=== PATIENT | female | born 1995 | race Caucasian/White ===

== ENCOUNTER → 2022-05-02 12:09 | Outpatient (CLI) | payer OTHER, MEDICAID, SELFPAY ==
[2022-05-02 13:09] LABS: Appearance Urine UA CLEAR; Bilirubin Urine UA NEGATIVE (NEGATIVE); Color Urine UA YELLOW; Glucose Urine UA NEGATIVE (Negative); Ketones Urine UA NEGATIVE (NEGATIVE); Leukocyte Esterase Urine UA NEGATIVE (NEGATIVE); Nitrite Urine UA NEGATIVE (Negative); Occult Blood Urine UA NEGATIVE (Negative); Protein Urine UA NEGATIVE (Negative); Urobilinogen Urine UA 0.2 E.U./dL (0.2)
[2022-05-02 13:10] LABS: pH Urine UA 5.5 (4.5-8.0)
[2022-05-02 13:33] LABS: RBC Urine None Seen (0-5/HPF); Squamous Epithelial Cell Urine 5-10 /HPF (0-5/HPF); WBC Urine None Seen (0-5/HPF)
[2022-05-02 13:34] LABS: Bacteria Urine Many (>30); Culture Indicated Urine Cult Not Indicated
== END ==
PROVIDERS: PCP Family Medicine; Referring Provider Obstetrics & Gynecology; Visit Provider Obstetrics & Gynecology
DX: R30.0 Dysuria (principal)
CPT/HCPCS: 81001; 87086

== ENCOUNTER → 2022-06-13 10:41 | Outpatient (CLI) | payer OTHER, MEDICAID, SELFPAY ==
[2022-06-13 11:39] LABS: Specimen Label NATERA KIT
[2022-06-13 11:48] LABS: Add Manual Diff / Slide Review NO; Basophils Absolute Auto 0 /uL (0-100); Basophils Percent Auto 0.3 % (0-2); Eosinophils Absolute Auto 100 /uL (0-450); Eosinophils Percent Auto 0.6 % (2-4); Hemoglobin 12.5 g/dL (12.0-16.0); Lymphocytes Absolute Auto 1600 /uL (1100-4500); Lymphocytes Percent Auto 13.3 % (25-40); Mean Corpuscular HGB Conc 34.6 % (30-36); Mean Corpuscular Hemoglobin 29.9 PG (26-34); Mean Corpuscular Volume 86.3 fL (80-100); Monocytes Absolute Auto 800 /uL (0-900); Neutrophils Absolute Auto 9200 /uL (1500-7000); Neutrophils Percent Auto 78.8 % (50-75); Platelet Count 270 X10^3/uL (150-400); Red Blood Cell Count 4.17 X10^6/uL (4.0-5.2); Red Cell Distribution Width 13.9 % (11.6-14.8); White Blood Cell Count 11.7 X10^3/uL (4.5-11.0)
[2022-06-13 13:09] LABS: Hepatitis B Surface Antigen NEGATIVE s/c (NEGATIVE); Rubella Antibody IgG 47.2 IU/mL (>15)
[2022-06-13 13:25] LABS: HIV 1 & 2 Ab/Ag 4th Gen Combo NEGATIVE (NEGATIVE); Hep C Virus Ab w/Reflex Quant NEGATIVE s/c (NEGATIVE)
[2022-06-13 13:32] LABS: Appearance Urine UA SL CLOUDY; Bilirubin Urine UA NEGATIVE (NEGATIVE); Color Urine UA YELLOW; Glucose Urine UA NEGATIVE (Negative); Ketones Urine UA NEGATIVE (NEGATIVE); Leukocyte Esterase Urine UA TRACE (NEGATIVE); Nitrite Urine UA POSITIVE (Negative); Occult Blood Urine UA TRACE-INTACT (Negative); Protein Urine UA NEGATIVE (Negative); Specific Gravity Urine UA 1.015 (1.000-1.035); Urobilinogen Urine UA 0.2 E.U./dL (0.2)
[2022-06-13 13:40] LABS: RBC Urine 0-1/HPF (0-5/HPF); Squamous Epithelial Cell Urine 5-10 /HPF (0-5/HPF); WBC Urine 1-5/HPF (0-5/HPF)
[2022-06-13 13:41] LABS: Bacteria Urine Many (>30)
[2022-06-14 08:58] LABS: RPR Screen Non Reactive (Non Reactive); Varicella IgG Antibody <135 index (Immune >165)
== END ==
PROVIDERS: PCP Family Medicine; Referring Provider Obstetrics & Gynecology; Visit Provider Obstetrics & Gynecology
DX: Z34.81 Encounter for supervision of other normal pregnancy, first trimester (principal)
CPT/HCPCS: 36415; 80055; 81001; 86787; 86803; 86850; 86900; 86901; 87077; 87086; 87186; 87389

== ENCOUNTER → 2022-06-27 14:11 | Outpatient (CLI) | payer OTHER, MEDICAID, SELFPAY ==
[2022-06-27 15:59] LABS: Appearance Urine UA CLOUDY; Bilirubin Urine UA NEGATIVE (NEGATIVE); Color Urine UA YELLOW; Glucose Urine UA TRACE g/dL (Negative); Ketones Urine UA TRACE (NEGATIVE); Leukocyte Esterase Urine UA NEGATIVE (NEGATIVE); Nitrite Urine UA NEGATIVE (Negative); Occult Blood Urine UA TRACE-LYSED (Negative); Protein Urine UA NEGATIVE (Negative); Urobilinogen Urine UA 0.2 E.U./dL (0.2)
[2022-06-27 16:00] LABS: pH Urine UA 5.5 (4.5-8.0)
[2022-06-27 16:08] LABS: RBC Urine None Seen (0-5/HPF); Squamous Epithelial Cell Urine 5-10 /HPF (0-5/HPF); WBC Urine 0-1/HPF (0-5/HPF)
[2022-06-27 16:09] LABS: Bacteria Urine Many (>30); Culture Indicated Urine Specimen Cultured
== END ==
PROVIDERS: PCP Family Medicine; Referring Provider Obstetrics & Gynecology; Visit Provider Obstetrics & Gynecology
DX: R30.0 Dysuria (principal)
CPT/HCPCS: 81001; 87086

== ENCOUNTER → 2022-07-25 14:30 | Outpatient (CLI) | payer OTHER, MEDICAID, SELFPAY ==
--- NOTE | 2022-07-25 14:32 | DI.US.S_ITS ---
PROCEDURE: US OB >= 14 WEEKS FETUS INDICATIONS: ANATOMY OUTSIDE/PRIOR DATING DATA: Last menstrual period (LMP): March 04, 2022. LMP-based estimated date of delivery (NELLA): December 09, 2022. First dating scan (date and location): May 17, 2022. Estimated date of delivery (NELLA) from first dating scan: December 06, 2022. The calculations are made using the clinical NELLA of December 09, 2022. TECHNIQUE: Real-time scanning was performed of the fetus, with image documentation and biometric measurements. Endovaginal scanning: Not performed COMPARISON: None. FINDINGS: General: A single living intrauterine gestation is present. Presentation: Transverse. Placenta: Placental position is posterior , without previa. Amniotic fluid index: 12.2 cm, normal range is 5-24 cm. Single deepest vertical pocket is 4.6 cm. heart rate: 143 beats per minute. Maternal cervical canal: 3.1 cm long. Normal lower limit is 2.5 cm. biometrics: Biparietal diameter: 4.9 cm, 21 weeks and 0 days Head circumference: 18.6 cm, 21 weeks and 0 days Abdominal circumference: 16.9 cm, 21 weeks and 6 days Femur length: 3.6 cm, 21 weeks and 3 days Clinically estimated gestational age: 20 weeks and 3 days Composite gestational age from present scan: 21 weeks and 2 days Estimated weight and percentile: 437 g, approximately the 96th percentile for gestational age Anatomic survey: Neuro: Ventricles are non-dilated at less than 10 mm. Cisterna magna is normal at 3-11 mm. Cerebellum is normal in size and morphology. Nuchal skin fold: Normal at less than 6 mm between 14-21 weeks gestational age. Face: Nose and lips, facial profile are normal. Spine: Sacral spine not well visualized Heart: 4-chambered heart and the ventricular outflow tracts were not well visualized. Diaphragm: Diaphragm is intact. Stomach: Left-sided stomach is present. Kidneys: No hydronephrosis. Normal is less than 5 mm in 2nd trimester, less than 7 mm in 3rd trimester. Cord: Placental cord insertion not well visualized. Bladder: Normal in size. Extremities: All 4 extremities identified. IMPRESSION: Single living intrauterine gestation with estimated sonographic gestational age of approximately 21 weeks and 2 days versus approximately 20 weeks and 3 days by clinical dating. Estimated sonographic gestational age and clinical dating remain concordant. Estimated weight of 437 g which correlates with the 96th percentile. The sacral spine, placental cord insertion, four-chamber heart and ventricular outflow tracts are not well visualized on this exam. Follow-up recommended. Otherwise, unremarkable second-trimester anatomic survey. We strive to produce accurate, complete, and clear reports of imaging services. To assist us in improving patient care, this report was composed using standard report templates and voice recognition software. Therefore, it may contain abnormal punctuation, insertions and/or omissions. Occasional wrong-word or sound-alike substitutions may occur. Though we review the report and make efforts to correct it, we do recommend that the report be read carefully in proper context to recognize any text inaccuracies. Dictated by: Sabino Pineda M.D. on 07/26/2022 at 10:24 Approved by: Sabino Pineda M.D. on 07/26/2022 at 10:30
== END ==
PROVIDERS: PCP Family Medicine; Referring Provider Obstetrics & Gynecology; Visit Provider Obstetrics & Gynecology
DX: Z34.02 Encounter for supervision of normal first pregnancy, second trimester (principal); Z3A.21 21 weeks gestation of pregnancy
CPT/HCPCS: 76811

== ENCOUNTER → 2022-08-03 11:49 | Outpatient (CLI) | payer OTHER, MEDICAID, SELFPAY ==
[2022-08-07 13:47] LABS: AFP Value 106.2 ng/mL (.); Gest Age on Col Date 21.7 weeks (.); Insulin Dep Diabetes No (.); OSBR Risk 1IN 1109 (.); Results Report (.); Test Results *Screen Negative* (.)
== END ==
PROVIDERS: PCP Family Medicine; Referring Provider Obstetrics & Gynecology; Visit Provider Obstetrics & Gynecology
DX: Z34.02 Encounter for supervision of normal first pregnancy, second trimester (principal); Z3A.21 21 weeks gestation of pregnancy
CPT/HCPCS: 36415; 82105

== ENCOUNTER → 2022-08-04 12:35 | Outpatient (CLI) | payer OTHER, MEDICAID, SELFPAY ==
[2022-08-04 13:14] LABS: Appearance Urine UA SL CLOUDY; Bilirubin Urine UA NEGATIVE (NEGATIVE); Color Urine UA YELLOW; Glucose Urine UA NEGATIVE (Negative); Ketones Urine UA NEGATIVE (NEGATIVE); Leukocyte Esterase Urine UA TRACE (NEGATIVE); Nitrite Urine UA NEGATIVE (Negative); Occult Blood Urine UA NEGATIVE (Negative); Protein Urine UA NEGATIVE (Negative); Urobilinogen Urine UA 0.2 E.U./dL (0.2)
[2022-08-04 13:15] LABS: pH Urine UA 6.5 (4.5-8.0)
[2022-08-04 13:33] LABS: Bacteria Urine Many (>30); Culture Indicated Urine Specimen Cultured; RBC Urine 0-1/HPF (0-5/HPF); Squamous Epithelial Cell Urine 1-5 /HPF (0-5/HPF); WBC Urine 5-10/HPF (0-5/HPF)
== END ==
PROVIDERS: PCP Family Medicine; Referring Provider Obstetrics & Gynecology; Visit Provider Obstetrics & Gynecology
DX: Z34.01 Encounter for supervision of normal first pregnancy, first trimester (principal)
CPT/HCPCS: 81003; 81015; 87086

== ENCOUNTER → 2022-08-18 13:20 | Outpatient (CLI) | payer OTHER, MEDICAID, SELFPAY ==
--- NOTE | 2022-08-18 13:22 | DI.US.S_ITS ---
PROCEDURE: US OB FOLLOW UP INDICATIONS: FU anatomy scan OUTSIDE/PRIOR DATING DATA: Last menstrual period (LMP): 03/04/22. LMP-based estimated date of delivery (NELLA): 12/09/2022 First dating scan (date and location): 05/17/2022 Estimated date of delivery (NELLA) from first dating scan: 12/06/2022. The calculations are made using the clinical NELLA of 12/09/2022. TECHNIQUE: Real-time scanning was performed of the fetus, with image documentation and biometric measurements. COMPARISON: [facility], , OB >= 14 WEEKS FETUS, 07/25/2022, 15:36. FINDINGS: General: A single living intrauterine gestation is present. Presentation: Variable. Placenta: Placental position is variable , without previa. Amniotic fluid index: 17.2 cm, normal range is 5-24 cm. Single deepest vertical pocket is 6.3 cm. heart rate: 132 beats per minute. Maternal cervical canal: 4.3 cm long. Normal lower limit is 2.5 cm. biometrics: Biparietal diameter: 6.3 cm 25 weeks 4 days Head circumference: 22.9 cm 25 weeks 0 days Abdominal circumference: 22.1 cm 26 weeks 4 days Femur length: 4.9 cm 26 weeks 3 days Clinically estimated gestational age: 23 weeks 6 days Composite gestational age from present scan: 25 weeks 6 days Estimated weight and percentile: 916 g greater than 99th percentile Other: Heart and outflow tracts are not well seen. Cord insertion is not well seen. IMPRESSION: Single live intrauterine with ultrasound gestational age today of 25 weeks 6 days. weight is greater than the 99th percentile consistent with macrosomia. heart/outflow tracts as well as cord insertion remain not well seen. We strive to produce accurate, complete, and clear reports of imaging services. To assist us in improving patient care, this report was composed using standard report templates and voice recognition software. Therefore, it may contain abnormal punctuation, insertions and/or omissions. Occasional wrong-word or sound-alike substitutions may occur. Though we review the report and make efforts to correct it, we do recommend that the report be read carefully in proper context to recognize any text inaccuracies. Dictated by: Carla Deng M.D. on 08/18/2022 at 16:43 Approved by: Carla Deng M.D. on 08/18/2022 at 16:51
== END ==
PROVIDERS: PCP Family Medicine; Referring Provider Obstetrics & Gynecology; Visit Provider Obstetrics & Gynecology
DX: Z36.2 Encounter for other antenatal screening follow-up (principal); Z3A.25 25 weeks gestation of pregnancy
CPT/HCPCS: 76816

== ENCOUNTER → 2022-09-27 15:12 | Outpatient (CLI) | payer OTHER, MEDICAID, SELFPAY ==
[2022-09-27 17:37] LABS: Hematocrit 31.6 % (36-46); Hemoglobin 10.9 g/dL (12.0-16.0)
[2022-09-27 17:53] LABS: GTT (PREG) 1 Hour PP 50gm Dose 110 mg/dL (76-139)
== END ==
PROVIDERS: PCP Family Medicine; Referring Provider Obstetrics & Gynecology; Visit Provider Obstetrics & Gynecology
DX: Z34.02 Encounter for supervision of normal first pregnancy, second trimester (principal); Z3A.26 26 weeks gestation of pregnancy
CPT/HCPCS: 36415; 82950; 85014; 85018

== ENCOUNTER 2022-10-10 16:40 | Observation (INO) | payer OTHER, MEDICAID, SELFPAY ==
--- NOTE | 2022-10-10 17:18 | DI.US.S_ITS ---
PROCEDURE: US OB BIOPHYSICAL PROFILE INDICATIONS: FALL OUTSIDE/PRIOR DATING DATA: Last menstrual period (LMP): 03/04/2022 LMP-based estimated date of delivery (NELLA): 12/09/2022 First dating scan (date and location): 05/17/2022 Estimated date of delivery (NELLA) from first dating scan: 12/06/2022 The calculations are made using the working NELLA of 12/09/2022 TECHNIQUE: Real-time scanning was performed of the fetus, with image documentation. Biophysical profile was also obtained. Endovaginal scanning: Not performed. COMPARISON: [facility], OB FOLLOW UP, 08/18/2022, 13:39. FINDINGS: General: A single living intrauterine gestation is present. Presentation: Breech Placenta: Placental position is posterior, without previa. Amniotic fluid index: 18.1 cm, normal range is 5-24 cm. Single deepest vertical pocket is 8.3 cm. heart rate: 150 beats per minute. Maternal cervical canal: 3.5 cm long. Normal lower limit is 2.5 cm. Clinically estimated gestational age: 31 weeks 6 days Biophysical profile: Tone: 2 points. Movement: 2 points. Respiration: 2 points. Largest pocket of fluid: 2 points. IMPRESSION: 1. Single live intrauterine . 2. Biophysical profile score is 8 of 8. 3. Amniotic fluid index is 18.1 cm. 4. Visualized portions of the posterior placenta appear normal. We strive to produce accurate, complete, and clear reports of imaging services. To assist us in improving patient care, this report was composed using standard report templates and voice recognition software. Therefore, it may contain abnormal punctuation, insertions and/or omissions. Occasional wrong-word or sound-alike substitutions may occur. Though we review the report and make efforts to correct it, we do recommend that the report be read carefully in proper context to recognize any text inaccuracies. Approved by: Williams Berg M.D. on 10/10/2022 at 18:28
--- NOTE | 2022-10-10 18:23 | PM.OBTRLD ---
Visit Information Visit Information Date of evaluation: 10/10/22 Primary OB Provider: Yamini Garcia On-call OB Provider: Christian Aguayo Reason for Evaluation: Yes other Comments/Additional reasons for admission: Dulce is a 27 yo G1 at 31+3 weeks EGA who this afternoon slipped and fell on her buttocks to the ground first and then fell backwards onto her back striking the back of her head. She didn't lose consciousness and doesn't have a headache following the fall. Her baby is active but she's experiencing more cramping than usual this evening. After the fall she's voided 3 times and upon wiping after one of those voids, she had light pink discharge on the paper but she's experienced no overt vaginal bleeding or leakage of fluid PV. She is not currently having any vaginal bleeding. Vital Signs Vital Signs: BP: 135/73 P: 85 T: 36.4C O2Sat (RA): 99% PFSH Medical History (Updated 10/10/22 @ 18:57 by Christian Aguyao MD) ADHD Aspergers' syndrome (~2010) Depression GI bleed IBS (irritable bowel syndrome) Irritable bowel syndrome (IBS) Surgical History Anesthesia H/O colonoscopy H/O endoscopy H/O neck surgery [place] teeth extracted Family History Mother Diabetes mellitus Skin cancer, basal cell Cholecystitis Grandmother Cholecystitis Stroke Grandmother Colon cancer Grandfather Diabetes mellitus Heart disease Grandfather Heart disease Myocardial infarction Social History marital status: unmarried,single number of children: 0 household members: significant other lives independently: Yes housing: apartment pets and animals: No education level: high school occupational status: unemployed current occupational exposures/hazards: No special velia needs: No seatbelt use: always water heater temp set < 120 deg: No (water tank incapable of being adjusted below 125.) working smoke detector in home: Yes fire extinguisher in home: Yes carbon monox detector in home: Yes firearms in home: Yes firearms unloaded and locked: No (planning to buy a safe soon) do you feel safe at home: Yes Smoking Status: Former smoker (MJ only, quit just before getting ) second hand exposure: Yes (MJ smoke) alcohol intake: former (very rarely, not since ) substance use type: marijuana (prior to ) during the past year weight has: increased > 10 lbs well-balanced diet: rarely or never daily servings fruits/ve-1 caffeine: No Type(s) of exercise: walking frequency: 1-2 times per week Review of Systems Review of Systems Narrative: Problem-specific ROS positives included in HPI Exam Const General: cooperative, well developed and anxious Nutritional Appearance: overweight Orientation: alert and oriented x3 HENMT Head: normal to inspection, normocephalic and atraumatic Eyes General: appearance normal, both eyes and all related structures Resp Effort & Inspection: normal respiratory effort and able to speak in complete sentences GI Inspection: normal to inspection Palpation: soft and no hepatosplenomegaly Other: Back: Moderate tenderness of paraspinous mm. in the LS region Uterus Location (Fundal Height): 32 Estimated Weight (lbs): 4 Other: Fundus is soft with mild tightening occurring irregularly every 5-8 minutes. Mild tenderness over the anterior EMI. Extrem Right lower extremity: normal to inspection Objective Imaging OB US w/ BPP: Radiologist's impression: PROCEDURE:? US OB BIOPHYSICAL PROFILE ? INDICATIONS:? FALL ? OUTSIDE/PRIOR DATING DATA:? Last menstrual period (LMP):? 03/04/2022 LMP-based estimated date of delivery (NELLA):? 12/09/2022 First dating scan (date and location):? 05/17/2022 Estimated date of delivery (NELLA) from first dating scan:? 12/06/2022 The calculations are made using the working NELLA of 12/09/2022 ? TECHNIQUE:? Real-time scanning was performed of the fetus, with image documentation.? Biophysical profile was also obtained.? Endovaginal scanning:? Not performed. ? COMPARISON:? [facility], OB FOLLOW UP, 08/18/2022, 13:39. ? FINDINGS:? ? General:? A single living intrauterine gestation is present.? Presentation:? Breech Placenta:? Placental position is posterior, without previa. ? Amniotic fluid index:? 18.1 cm, normal range is 5-24 cm.? Single deepest vertical pocket is 8.3 cm. heart rate:? 150 beats per minute.? Maternal cervical canal:? 3.5 cm long.? Normal lower limit is 2.5 cm.? Clinically estimated gestational age:? 31 weeks 6 days ? Biophysical profile:? Tone:? 2 points. Movement:? 2 points.? Respiration:? 2 points.? Largest pocket of fluid:? 2 points.? ? IMPRESSION:? 1. Single live intrauterine . 2. Biophysical profile score is 8 of 8. 3. Amniotic fluid index is 18.1 cm. 4. Visualized portions of the posterior placenta appear normal.? Evaluation Evaluation Baseline heart rate: 125 Variability: Moderate (11-25) monitor accelerations: Present Monitor Decelerations: Absent Contraction Frequency (minutes): 8 Uterine Contraction Intensity: Mild Category of Tracing: Reactive Diagnosis, Plan/Disposition Final Diagnosis (1) : Status: Acute (2) Fall as cause of accidental injury at home as place of occurrence: Status: Acute (3) Uterine irritability: Status: Acute Plan/Disposition Plan: Extended observation due to EMI tenderness, uterine irritability, transient light spotting (? urinary vs. vaginal origin), and LBP. - PO hydration, BR w/ BRP, continuous monitoring Nifedipine 10 mg PO q 20 minutes x 4 doses for uterine irritability; further evaluation/treatment decisions based on response PO Tylenol and Flexeril for her LBP which appears to be MS in origin based on physical findings OB Disposition: other (Continue observation)
[2022-10-10] MEDS: NIFEdipine 10 MG CAPSULE PO ×4 (18:56→19:58)
[2022-10-10] MEDS: ACETAMINOPHEN 325 MG TABLET 975 MG PO (19:40)
[2022-10-10 20:15] LABS: Appearance Urine UA CLEAR; Bilirubin Urine UA NEGATIVE (NEGATIVE); Color Urine UA YELLOW; Glucose Urine UA NEGATIVE (Negative); Ketones Urine UA NEGATIVE (NEGATIVE); Leukocyte Esterase Urine UA NEGATIVE (NEGATIVE); Nitrite Urine UA NEGATIVE (Negative); Occult Blood Urine UA NEGATIVE (Negative); Protein Urine UA NEGATIVE (Negative); Urobilinogen Urine UA 0.2 E.U./dL (0.2)
[2022-10-10] MEDS: CYCLOBENZAPRINE 10 MG TABLET PO (20:26)
[2022-10-10] MEDS: NIFEdipine 30 MG TAB ER PO (20:39)
[2022-10-10 21:06] LABS: Amorphous Sediment Urine 1+; Bacteria Urine Moderate (10-30); Culture Indicated Urine Cult Not Indicated; RBC Urine 0-1/HPF (0-5/HPF); Squamous Epithelial Cell Urine 1-5 /HPF (0-5/HPF); Transitional Epi Cells Urine 0-1/HPF (0-5/HPF); WBC Urine 1-5/HPF (0-5/HPF)
--- NOTE | 2022-10-10 23:08 | PM.OBPNLAB ---
Date/Time Date Patient Seen: 10/10/22 Time Patient Seen: 23:08 Pain Control Pain control: tolerating well Contractions Contractions on admission: irregular Monitor mode: External Contraction frequency (min): 6 Contraction duration (min): 1 Contraction pattern: Irregular Contraction phase: Resting Contraction intensity: Mild Status status: Category l Heart Rate Baseline: 125 Monitor Accelerations: Present Monitor Decelerations: Absent Monitor Variability: Moderate Assessment and Plan Comments: Contractions have abated nicely but now she has a bitemporal MCGOWAN 05/31. According to the patient she's been having headaches and has been taking ibuprofen at home to good effect. Will add oxycodone 5 mg and ibuprofen 600 mg x 1 dose to treat her headdache and re-evaluate in the AM if she's able to sleep.
[2022-10-11] MEDS: IBUPROFEN 600 MG TABLET PO (03:15)
--- NOTE | 2022-10-11 08:25 | PM.OBTRLD ---
Visit Information Visit Information Date of evaluation: 10/11/22 Primary OB Provider: Yamini Garcia On-call OB Provider: Yamini Garcia Reason for Evaluation: Yes other Comments/Additional reasons for admission: 27 yo G1 at 31+4 weeks EGA observed overnight after she slipped and fell on her buttocks to the ground first and then fell backwards onto her back liking hitting the back of her head.? She did not lose consciousness. She reports some snow was in the area where her head hit and this cushioned the hip, feel she only hit her head lightly. she was observed due to lower uterine segment discomfort, seeing some minimal pink with wiping 1 time after urination as well as some frequent contractions. See initial observation note by Dr. Aguayo. Her contractions initially slowed some overnight but then picked back up. After 7:00 a.m. however contractions then spaced and have remained spaced 4-5 hours. She is not feeling any significant contractions now. She had developed a headache after admission which resolved after oxycodone x1 in ibuprofen x1. She reports discomfort over her sacrum, and bilateral inguinal areas, not severe. Patient reports headaches more commonly outside of for which she would use ibuprofen but reports she has not used ibuprofen this . She tries to avoid Tylenol as well. . Vital Signs Vital Signs: BPs normal [facility] Medical History (Updated 10/10/22 @ 18:57 by Christian Aguayo MD) ADHD Aspergers' syndrome (~2010) Depression GI bleed IBS (irritable bowel syndrome) Irritable bowel syndrome (IBS) Surgical History Anesthesia H/O colonoscopy H/O endoscopy H/O neck surgery [place] teeth extracted Family History Mother Diabetes mellitus Skin cancer, basal cell Cholecystitis Grandmother Cholecystitis Stroke Grandmother Colon cancer Grandfather Diabetes mellitus Heart disease Grandfather Heart disease Myocardial infarction Social History marital status: unmarried,single number of children: 0 household members: significant other lives independently: Yes housing: apartment pets and animals: No education level: high school occupational status: unemployed current occupational exposures/hazards: No special velia needs: No seatbelt use: always water heater temp set < 120 deg: No (water tank incapable of being adjusted below 125.) working smoke detector in home: Yes fire extinguisher in home: Yes carbon monox detector in home: Yes firearms in home: Yes firearms unloaded and locked: No (planning to buy a safe soon) do you feel safe at home: Yes Smoking Status: Former smoker (MJ only, quit just before getting ) second hand exposure: Yes (MJ smoke) alcohol intake: former (very rarely, not since ) substance use type: marijuana (prior to ) during the past year weight has: increased > 10 lbs well-balanced diet: rarely or never daily servings fruits/ve-1 caffeine: No Type(s) of exercise: walking frequency: 1-2 times per week Exam Const General: cooperative, healthy appearing and comfortable Orientation: alert and oriented x3 HENMT Head: normal to inspection and normocephalic Eyes General: appearance normal, both eyes and all related structures Resp Effort & Inspection: normal respiratory effort and able to speak in complete sentences GI Palpation: No tender Objective Labs Labs: Laboratory Results - last 24 hr 10/10/22 17:30 Urine Color Yellow Urine Appearance Clear Urine pH 6.0 Ur Specific [place] 1.010 Urine Protein Negative Urine Glucose (UA) Negative Urine Ketones Negative Urine Occult Blood Negative Urine Nitrate Negative Urine Bilirubin Negative Urine Urobilinogen 0.2 Ur Leukocyte Esterase Negative Urine RBC 0-1/hpf Urine WBC 1-5/hpf Ur Squamous Epith Cells 1-5 /hpf Ur Transition Epith Cell 0-1/hpf Amorphous Sediment 1+ Urine Bacteria Moderate (10-30) H Ur Culture Indicated? Cult not indicated Evaluation Evaluation Baseline heart rate: 130 Variability: Moderate (11-25) monitor accelerations: Present Monitor Decelerations: Absent Uterine Contraction Intensity: Mild Category of Tracing: Reactive Status: Category l Comments: Contractions spaced to infrequent at 7:00 a.m. then space further to rare to none which continued on monitoring for next few hours to 1145 am Diagnosis, Plan/Disposition Final Diagnosis (1) : Status: Acute (2) Fall as cause of accidental injury at home as place of occurrence: Status: Acute (3) Uterine irritability: Status: Acute Plan/Disposition Plan: Contractions are now rare to none over past 4+ hours. Cervix not checked digitally yesterday and deferred this a.m. since contractions now spaced. On ultrasound cervical length was 3.5 cm last night. Ultrasound yesterday also showed visualized portions of posterior placenta appeared normal. BPP was 8/8. was currently breech. No signs of labor or abruption after extended monitoring, nor on US. Her headache resolved after 1 dose of oxycodone and remains resolved. She does have some musculoskeletal discomfort after the fall, not severe and no signs of any severe skeletal injury or fracture. Will discharge patient to home. Discussed calling or returning for any bright red vaginal bleeding, leakage of fluid, regular or painful contractions, or decreased movement. Keep routine scheduled office appointment tomorrow for follow-up. OB Disposition: home
== END 2022-10-11 12:50 | disposition home or self-care (01) ==
PROVIDERS: Obstetrics & Gynecology; Admitting Provider Obstetrics & Gynecology; PCP Family Medicine; Referring Provider Obstetrics & Gynecology; Visit Provider Obstetrics & Gynecology
DX: O47.03 False labor before 37 completed weeks of gestation, third trimester (principal); Z3A.31 31 weeks gestation of pregnancy; W01.0XXA Fall on same level from slipping, tripping and stumbling without subsequent striking against object, initial encounter
CPT/HCPCS: 59025; 59050; 76819; 81001; 87086; G0378; G0379

== ENCOUNTER 2022-10-12 14:15 | Outpatient (CLI) | payer OTHER, MEDICAID, SELFPAY | END 2022-10-12 16:33 | disposition home or self-care (01) | LOC: LABOR 15:51 → OB 10-18 09:06 | PROVIDERS: PCP Family Medicine; Referring Provider Obstetrics & Gynecology; Visit Provider Obstetrics & Gynecology | DX: O36.8130 Decreased fetal movements, third trimester, not applicable or unspecified (principal); O47.03 False labor before 37 completed weeks of gestation, third trimester; Z3A.31 31 weeks gestation of pregnancy | CPT/HCPCS: 59050; G0378; G0379 ==

== ENCOUNTER → 2022-10-27 15:47 | Outpatient (CLI) | payer OTHER, MEDICAID, SELFPAY ==
[2022-10-27 22:51] LABS: Creatinine Urine Random 164.1 mg/dL; Protein (Total) Urine Random 39 mg/dL (0-12); Protein Creatinine Ratio Urine 0.23 GRAM/24H
== END ==
PROVIDERS: PCP Family Medicine; Visit Provider Obstetrics & Gynecology
DX: Z34.03 Encounter for supervision of normal first pregnancy, third trimester (principal); Z3A.33 33 weeks gestation of pregnancy
CPT/HCPCS: 82570; 84156

== ENCOUNTER → 2022-11-01 15:12 | Outpatient (CLI) | payer OTHER, MEDICAID, SELFPAY ==
[2022-11-01 17:28] LABS: Add Manual Diff / Slide Review NO; Basophils Absolute Auto 0 /uL (0-100); Basophils Percent Auto 0.2 % (0-2); Eosinophils Absolute Auto 0 /uL (0-450); Eosinophils Percent Auto 0.4 % (2-4); Hematocrit 33.8 % (36-46); Hemoglobin 11.5 g/dL (12.0-16.0); Lymphocytes Absolute Auto 1200 /uL (1100-4500); Lymphocytes Percent Auto 12.5 % (25-40); Mean Corpuscular HGB Conc 34.1 % (30-36); Mean Corpuscular Hemoglobin 29.8 PG (26-34); Mean Corpuscular Volume 87.3 fL (80-100); Monocytes Absolute Auto 1000 /uL (0-900); Monocytes Percent Auto 9.9 % (3-14); Neutrophils Absolute Auto 7600 /uL (1500-7000); Platelet Count 226 X10^3/uL (150-400); Red Blood Cell Count 3.87 X10^6/uL (4.0-5.2); Red Cell Distribution Width 15.6 % (11.6-14.8); White Blood Cell Count 9.8 X10^3/uL (4.5-11.0)
[2022-11-01 18:05] LABS: Alanine Aminotransferase 17 IU/L (<35); Albumin 3.3 g/dL (3.5-5.0); Alkaline Phosphatase 190 U/L (38-126); Aspartate Aminotransferase 21 IU/L (14-36); BUN Creatinine Ratio 10.6 (6-22); Bilirubin Total 0.5 mg/dL (0.2-1.3); Blood Urea Nitrogen 7 mg/dL (7-17); Calcium 8.9 mg/dL (8.4-10.2); Carbon Dioxide 19 mmol/L (22-32); Chloride 106 mmol/L (98-107); Estimated Glomerular Filt Rate > 60 mL/min (>60); Globulin 3.4 g/dL (1.7-4.1); Glucose 105 mg/dL (70-100); HEMOLYSIS < 15 (0-50); Potassium 3.8 mmol/L (3.4-5.1); Sodium 134 mmol/L (137-145); Total Protein 6.7 g/dL (6.3-8.2); Uric Acid 5.5 mg/dL (2.5-6.2)
[2022-11-01 18:28] LABS: Creatinine Urine Random 93.2 mg/dL; Protein (Total) Urine Random 78 mg/dL (0-12); Protein Creatinine Ratio Urine 0.83 GRAM/24H
== END ==
PROVIDERS: PCP Family Medicine; Referring Provider Obstetrics & Gynecology; Visit Provider Obstetrics & Gynecology
DX: R03.0 Elevated blood-pressure reading, without diagnosis of hypertension (principal)
CPT/HCPCS: 36415; 80053; 82570; 84156; 84550; 85025

== ENCOUNTER 2022-11-01 15:59 | Observation (INO) | payer OTHER, MEDICAID, SELFPAY | END 2022-11-01 18:40 | disposition home or self-care (01) | LOC: LABOR 16:00 | PROVIDERS: Admitting Provider Obstetrics & Gynecology; PCP Family Medicine; Referring Provider Obstetrics & Gynecology; Visit Provider Obstetrics & Gynecology | DX: Z34.03 Encounter for supervision of normal first pregnancy, third trimester (principal); Z3A.34 34 weeks gestation of pregnancy; R03.0 Elevated blood-pressure reading, without diagnosis of hypertension | CPT/HCPCS: 36415; 59025; 80053; 82570; 84156; 84550; 85025; G0378; G0379 ==

== ENCOUNTER → 2022-11-03 13:15 | Outpatient (CLI) | payer OTHER, MEDICAID, SELFPAY ==
[2022-11-03 13:58] LABS: Add Manual Diff / Slide Review NO; Basophils Absolute Auto 0 /uL (0-100); Basophils Percent Auto 0.2 % (0-2); Eosinophils Absolute Auto 0 /uL (0-450); Eosinophils Percent Auto 0.5 % (2-4); Hematocrit 33.1 % (36-46); Hemoglobin 11.3 g/dL (12.0-16.0); Lymphocytes Absolute Auto 1300 /uL (1100-4500); Lymphocytes Percent Auto 14.6 % (25-40); Mean Corpuscular Hemoglobin 29.8 PG (26-34); Mean Corpuscular Volume 87.6 fL (80-100); Monocytes Absolute Auto 900 /uL (0-900); Neutrophils Absolute Auto 6900 /uL (1500-7000); Neutrophils Percent Auto 74.7 % (50-75); Platelet Count 231 X10^3/uL (150-400); Red Blood Cell Count 3.78 X10^6/uL (4.0-5.2); Red Cell Distribution Width 15.8 % (11.6-14.8); White Blood Cell Count 9.2 X10^3/uL (4.5-11.0)
[2022-11-03 13:59] LABS: Alanine Aminotransferase 17 IU/L (<35); Albumin 3.5 g/dL (3.5-5.0); Alkaline Phosphatase 186 U/L (38-126); Aspartate Aminotransferase 23 IU/L (14-36); BUN Creatinine Ratio 12.7 (6-22); Bilirubin Total 0.5 mg/dL (0.2-1.3); Blood Urea Nitrogen 10 mg/dL (7-17); Carbon Dioxide 21 mmol/L (22-32); Chloride 106 mmol/L (98-107); Estimated Glomerular Filt Rate > 60 mL/min (>60); Globulin 3.4 g/dL (1.7-4.1); Glucose 85 mg/dL (70-100); HEMOLYSIS < 15 (0-50); Potassium 4.3 mmol/L (3.4-5.1); Sodium 135 mmol/L (137-145); Total Protein 6.9 g/dL (6.3-8.2); Uric Acid 5.8 mg/dL (2.5-6.2)
== END ==
PROVIDERS: PCP Family Medicine; Referring Provider Obstetrics & Gynecology; Visit Provider Obstetrics & Gynecology
DX: R03.0 Elevated blood-pressure reading, without diagnosis of hypertension (principal)
CPT/HCPCS: 36415; 80053; 84550; 85025

== ENCOUNTER → 2022-11-03 13:15 | Outpatient (CLI) | payer OTHER, MEDICAID, SELFPAY ==
[2022-11-03 17:52] LABS: Protein (Total) Urine Random 54 mg/dL (0-12); Protein Creatinine Ratio Urine 0.72 GRAM/24H
== END ==
PROVIDERS: PCP Family Medicine; Visit Provider Obstetrics & Gynecology
DX: Z34.03 Encounter for supervision of normal first pregnancy, third trimester (principal)
CPT/HCPCS: 82570; 84156

== ENCOUNTER 2022-11-03 13:17 | Observation (INO) | payer OTHER, MEDICAID, SELFPAY ==
--- NOTE | 2022-11-03 14:10 | DI.US.S_ITS ---
PROCEDURE: US OB BIOPHYSICAL PROFILE INDICATIONS: elevated BPs OUTSIDE/PRIOR DATING DATA: Last menstrual period (LMP): 03/04/22 LMP-based estimated date of delivery (NELLA): 12/09/22. First dating scan (date and location): 05/17/22. Estimated date of delivery (NELLA) from first dating scan: 12/06/22. The calculations are made using the NELLA of 12/09/22. TECHNIQUE: Real-time scanning was performed of the fetus for biophysical profile, with image documentation. Color and pulse Doppler interrogation was also performed of the umbilical artery near its insertion into the placenta. Endovaginal scanning: Not needed COMPARISON: [facility], , OB BIOPHYSICAL PROFILE, 10/10/2022, 17:54. FINDINGS: General: A single living intrauterine gestation is present. Presentation: Breech. Placenta: Placental position is posterior , without previa. heart rate: 139 beats per minute. Biophysical profile: Tone: 2 points. Movement: 2 points. Respiration: 2 points. Largest pocket of fluid: 2 points. Umbilical artery Doppler: 2.5, 2.6, 2.6, normal IMPRESSION: Normal biophysical profile. Breech presentation. Normal amniotic fluid index at 11.7 cm. We strive to produce accurate, complete, and clear reports of imaging services. To assist us in improving patient care, this report was composed using standard report templates and voice recognition software. Therefore, it may contain abnormal punctuation, insertions and/or omissions. Occasional wrong-word or sound-alike substitutions may occur. Though we review the report and make efforts to correct it, we do recommend that the report be read carefully in proper context to recognize any text inaccuracies. Dictated by: Alec Wheeler M.D. on 11/03/2022 at 15:23 Approved by: Alec Wheeler M.D. on 11/03/2022 at 15:27
[2022-11-03 14:30] VITALS: BP 147/90; PULSE 74
[2022-11-03] MEDS: LABETALOL 100 MG TABLET 200 MG PO ×2 (14:30→16:10)
--- NOTE | 2022-11-03 15:49 | P.TNLD_ITS ---
Visit Information Visit Information Date of evaluation: 11/03/22 Primary OB Provider: Christian Aguayo Reason for Evaluation: Yes non-stress test Comments/Additional reasons for admission: 27 yo G1 at 34+6 wks EGA undergoing NST, prolonged BP monitoring, labs and BPP/Dopplers due to labile BP's in-office. Vital Signs Vital Signs: Vital Signs - 8 hr 11/03/22 14:30 Pulse Rate 74 Blood Pressure 147/90 H BP MAX: 161/98 ([id number]) BP on D/C: 134/86 (MAP 105) COUNTS INCLUDE 234 BEDS AT THE [facility] Medical History (Updated 11/04/22 @ 14:00 by Christian Aguayo MD) ADHD Aspergers' syndrome (~2010) Depression GI bleed IBS (irritable bowel syndrome) Irritable bowel syndrome (IBS) Surgical History Anesthesia H/O colonoscopy H/O endoscopy H/O neck surgery [place] teeth extracted Family History Mother Diabetes mellitus Skin cancer, basal cell Cholecystitis Grandmother Cholecystitis Stroke Grandmother Colon cancer Grandfather Diabetes mellitus Heart disease Grandfather Heart disease Myocardial infarction Social History marital status: unmarried,single number of children: 0 household members: significant other lives independently: Yes housing: apartment pets and animals: No education level: high school occupational status: unemployed current occupational exposures/hazards: No special velia needs: No seatbelt use: always water heater temp set < 120 deg: No (water tank incapable of being adjusted below 125.) working smoke detector in home: Yes fire extinguisher in home: Yes carbon monox detector in home: Yes firearms in home: Yes firearms unloaded and locked: No (planning to buy a safe soon) do you feel safe at home: Yes Smoking Status: Former smoker second hand exposure: Yes (MJ smoke) alcohol intake: former substance use type: marijuana during the past year weight has: increased > 10 lbs well-balanced diet: rarely or never daily servings fruits/ve-1 caffeine: No Type(s) of exercise: walking frequency: 1-2 times per week Exam Vital Signs (past 8 hours): - 11/03/22 14:30 Pulse Rate 74 Blood Pressure 147/90 H Const General: cooperative and comfortable Nutritional Appearance: overweight Orientation: alert and oriented x3 HENMT Head: normal to inspection, normocephalic and atraumatic Ears: hearing grossly normal bilaterally Face and sinus: normal facial exam Eyes General: appearance normal, both eyes and all related structures Conjunctivae: conjunctivae normal Sclera: sclerae normal EOM: EOM intact bilaterally Neck Neck: normal visual inspection Resp Effort & Inspection: normal respiratory effort and able to speak in complete sentences GI Inspection: normal to inspection Palpation: soft, no hepatosplenomegaly and No tender Uterus Location (Fundal Height): 36 Presentation: noel breech Estimated Weight (lbs): 6 Skin General: no rashes or lesions noted Neuro DTR's: Rt Patellar: 3+ and Lt Patellar: 3+ Extrem General: normal to inspection Right lower extremity: edema Details: pitting and 1+ Left lower extremity: normal to inspection and edema Details: pitting and 1+ Psych Appearance: grossly normal Mental Status: mental status grossly normal Speech and Movement: speech and movement normal Objective Imaging BPP, Doppler studies: Radiologist's impression: BPP: 8/8 ADALBERTO: 11.7 cm Breech presentation Posterior placenta, no previa UAD: 2.5, 2.6, 2.6 (Normal) Labs Labs: PLT: 231k Uric Acid: 5.8 AST: 23 ALT: 17 Prot:Creat: .72 (decreased from .83 11/01/2022) Evaluation Evaluation Baseline heart rate: 125 Variability: Moderate (11-25) (Some periods on minimal variability c/w sleep cycles) monitor accelerations: Present Monitor Decelerations: Absent Category of Tracing: Reactive Diagnosis, Plan/Disposition Final Diagnosis (1) Pre-eclampsia affecting , antepartum: Status: Acute Problem details: Currently without severe features (2) Macrosomia: Status: Acute Problem details: Based on US 09/29/2022, [facility] (3) Breech presentation, antepartum: Status: Acute (4) : Status: Acute Problem details: Currently 34+6 wks. EGA Plan/Disposition Plan: Will initiate PO Labetalol 200 mg BID. 200 mg PO x 2 administered on BC prior to discharge Bedrest as much as possible Signs/symptoms of severe BP elevation reviewed with patient and her mother who accompanies her Close observation of BP's at home with patient to notify office/provider online content editor of BP's approaching 160/110 and/or symptoms c/w severe BP elevation, or as needed Kick counts F/U on BC in 48 hrs. for NST/labs and q 48-72 hrs. until delivery Consider ECV if still breech at 36 wks. or if delivery indicated prior to 36 wks. but patient currently states preference for if remains breech OB Disposition: home
[2022-11-03 16:10] VITALS: BP 140/88; BP 154/90; PULSE 74; PULSE 82
== END 2022-11-03 16:51 | disposition home or self-care (01) ==
PROVIDERS: Admitting Provider Obstetrics & Gynecology; PCP Family Medicine; Referring Provider Obstetrics & Gynecology; Visit Provider Obstetrics & Gynecology
DX: O14.93 Unspecified pre-eclampsia, third trimester (principal); O36.63X0 Maternal care for excessive fetal growth, third trimester, not applicable or unspecified; O32.1XX0 Maternal care for breech presentation, not applicable or unspecified; Z3A.34 34 weeks gestation of pregnancy
CPT/HCPCS: 36415; 59025; 59050; 76819; 80053; 82570; 84156; 84550; 85025; 93975; G0378; G0379

== ENCOUNTER 2022-11-05 14:57 | Outpatient (CLI) | payer OTHER, MEDICAID, SELFPAY ==
[2022-11-05 16:04] LABS: Add Manual Diff / Slide Review NO; Basophils Absolute Auto 0 /uL (0-100); Basophils Percent Auto 0.2 % (0-2); Eosinophils Absolute Auto 0 /uL (0-450); Eosinophils Percent Auto 0.5 % (2-4); Hematocrit 31.6 % (36-46); Hemoglobin 10.7 g/dL (12.0-16.0); Lymphocytes Absolute Auto 1200 /uL (1100-4500); Lymphocytes Percent Auto 13.8 % (25-40); Mean Corpuscular Volume 88.1 fL (80-100); Monocytes Absolute Auto 600 /uL (0-900); Monocytes Percent Auto 6.3 % (3-14); Neutrophils Absolute Auto 7100 /uL (1500-7000); Neutrophils Percent Auto 79.2 % (50-75); Platelet Count 207 X10^3/uL (150-400); Red Blood Cell Count 3.58 X10^6/uL (4.0-5.2); Red Cell Distribution Width 16.2 % (11.6-14.8)
--- NOTE | 2022-11-05 16:06 | PM.OBTRLD ---
Visit Information Visit Information Date of evaluation: 11/05/22 Primary OB Provider: Christian Aguayo On-call OB Provider: Tiffanie Jiménez Reason for Evaluation: Yes non-stress test and Yes other Comments/Additional reasons for admission: Pre-eclampsia diagnosis, here today for labs and NST. Has had mild headache today with blurry vision. Vital Signs Vital Signs: 140/78, HR 100, 96.8 F PFSH Medical History ADHD Aspergers' syndrome (~2010) Depression GI bleed IBS (irritable bowel syndrome) Irritable bowel syndrome (IBS) Surgical History Anesthesia H/O colonoscopy H/O endoscopy H/O neck surgery [place] teeth extracted Family History Mother Diabetes mellitus Skin cancer, basal cell Cholecystitis Grandmother Cholecystitis Stroke Grandmother Colon cancer Grandfather Diabetes mellitus Heart disease Grandfather Heart disease Myocardial infarction Social History marital status: unmarried,single number of children: 0 household members: significant other lives independently: Yes housing: apartment pets and animals: No education level: high school occupational status: unemployed current occupational exposures/hazards: No special velia needs: No seatbelt use: always water heater temp set < 120 deg: No (water tank incapable of being adjusted below 125.) working smoke detector in home: Yes fire extinguisher in home: Yes carbon monox detector in home: Yes firearms in home: Yes firearms unloaded and locked: No (planning to buy a safe soon) do you feel safe at home: Yes Smoking Status: Former smoker second hand exposure: Yes (MJ smoke) alcohol intake: former substance use type: marijuana during the past year weight has: increased > 10 lbs well-balanced diet: rarely or never daily servings fruits/ve-1 caffeine: No Type(s) of exercise: walking frequency: 1-2 times per week Review of Systems Review of Systems Narrative: Negative except as mentioned below or in Subjective. Constitutional Comments: Integumentary/Breasts Comments: L breast pain that is worse after taking labetalol. Nipple turns purple only on that side. Heat makes it better. Neurologic Comments: Mild headache with blurry vision. Unsure what is safe to take with BP meds so has not tried anything except hydration and rest to solve headache. Exam Vital Signs (past 8 hours): see above Narrative Exam Narrative: L breast soft without erythema or edema. Nipple and areola dark brown. No masses or clogged ducts palpated on exam. Const General: healthy appearing, comfortable, well developed and anxious Orientation: alert, awake and oriented x3 Resp Effort & Inspection: normal respiratory effort Auscultation: clear to auscultation bilaterally Cardio Rate: regular rate Rhythm: regular rhythm Heart Sounds: S1 normal and S2 normal Neuro General: patient alert, patient oriented x3 and moves all extremities DTR's: Rt Patellar: 1+ and Lt Patellar: 2+ Objective Labs Result Diagrams: 11/05/22 15:40 11/05/22 15:40 Evaluation Evaluation Baseline heart rate: 120 Variability: Moderate (11-25) monitor accelerations: Present Monitor Decelerations: Absent Category of Tracing: Reactive Comments: irregular contractions Diagnosis, Plan/Disposition Final Diagnosis (1) Pre-eclampsia affecting , antepartum: Status: Acute Problem details: Mild headache with blurry vision today. Plan to treat with acetaminophen prior to d/c. (2) Breech presentation, antepartum: Status: Acute (3) High risk due to history of labor in third trimester: Status: Acute (4) Breast pain during : Status: Acute Plan/Disposition Plan: at 35w0d Pre-eclampsia Autism Breech presentation RNST Normal PIH panel today Elevated PCR 11/03/22, not repeated today Breast pain possible as s/e of labetalol Plan: NST today PIH panel Reviewed okay to take acetaminophen for headache. also recommend caffeine to help headache. Review to call if headache does not resolve with medication and caffeine. Acetaminophen given today. Consider changing to nifedipine to see if breast pain resolves. She will discuss with Dr. Aguayo.
[2022-11-05 16:26] LABS: Alanine Aminotransferase 18 IU/L (<35); Alkaline Phosphatase 188 U/L (38-126); Aspartate Aminotransferase 22 IU/L (14-36); BUN Creatinine Ratio 15.6 (6-22); Bilirubin Total 0.5 mg/dL (0.2-1.3); Blood Urea Nitrogen 10 mg/dL (7-17); Calcium 8.5 mg/dL (8.4-10.2); Carbon Dioxide 19 mmol/L (22-32); Chloride 106 mmol/L (98-107); Estimated Glomerular Filt Rate > 60 mL/min (>60); Glucose 120 mg/dL (70-100); HEMOLYSIS < 15 (0-50); Potassium 3.7 mmol/L (3.4-5.1); Sodium 133 mmol/L (137-145); Total Protein 6.3 g/dL (6.3-8.2)
[2022-11-05] MEDS: ACETAMINOPHEN 325 MG TABLET 975 MG PO (16:41)
[2022-11-05 21:49] LABS: Albumin Globulin Ratio 0.9 (1.0-2.8); Globulin 3.3 g/dL (1.7-4.1)
== END 2022-11-05 16:50 | disposition home or self-care (01) ==
LOC: LABOR 16:55 → OB 11-09 10:04
PROVIDERS: Advanced Practice Midwife; PCP Family Medicine; Referring Provider Obstetrics & Gynecology; Visit Provider Obstetrics & Gynecology
DX: O14.93 Unspecified pre-eclampsia, third trimester (principal); O32.1XX0 Maternal care for breech presentation, not applicable or unspecified; O92.29 Other disorders of breast associated with pregnancy and the puerperium; Z3A.35 35 weeks gestation of pregnancy
CPT/HCPCS: 59025; 80053; 85025; G0378; G0379

== ENCOUNTER 2022-11-07 16:14 | Observation (INO) | payer OTHER, MEDICAID, SELFPAY ==
[2022-11-07 17:57] VITALS: BP 166/79; PULSE 88
[2022-11-07] MEDS: LABETALOL 100 MG TABLET 200 MG PO (17:57)
[2022-11-07] MEDS: NIFEdipine 30 MG TAB ER PO (17:57)
--- NOTE | 2022-11-07 18:30 | PM.OBHP.IH.1 ---
OB HPI Date/Time Date of admission: 11/07/22 Date Patient Seen: 11/07/22 Time Patient Seen: 18:30 History of Present Condition Chief complaint: NST NELLA Calculator Estimated Delivery Date Method Current WG Current Estimate 12/09/22 LMP (Certain) 35w 3d Other Estimates 12/06/22 Ultrasound #1 35w 6d Estimated Gestational Age (weeks): 35+3 : 1 Para: 0 care: good care, initiated at week # (10), number of visits (10) and pounds weight gain (42) Dating criteria OB: LMP confirmed by 1st trimester US Ultrasounds: normal 1st trimester US and normal mid trimester US Obstetrical complications: preeclampsia Medical complications OB: psychiatric (depression) Preadmission Labs Last OB Lab Results: Blood Type O Positive 06/13/22 11:22 Antibody Screen Negative 06/13/22 11:22 Hematocrit 31.6 % (36-46) L 11/05/22 15:40 Hemoglobin 10.7 g/dL (12.0-16.0) L 11/05/22 15:40 Hepatitis B Surface Antigen Negative s/c (NEGATIVE) 06/13/22 11:22 Hepatitis C Antibody Negative s/c (NEGATIVE) 06/13/22 11:22 Rubella Antibody 47.2 IU/mL (>15) 06/13/22 11:22 Varicella-Zoster IgG Antibody <135 index (Immune >165) L 06/13/22 11:22 Glucose 1 Hour 110 mg/dL (76-139) 09/27/22 15:14 -: Chlamydia screen: negative, Gonorrhea screen: negative and Urine: positive (E.coli treated. JADE neg) -: PAP smear: Normal Genetic Screens: Cell-free DNA: Normal (normal female) and Alpha-fetoprotein: Normal External Labs -: Urine: positive (E.coli treated. JADE neg) Evaluation Evaluation Baseline heart rate: 135 Variability: Moderate (11-25) monitor accelerations: Present Monitor Decelerations: Absent Category of Tracing: Reactive Dilation (cm): 0 Effacement (%): 25 Dilation: Closed Effacement: 0-30% station: -3 Position of cervix: posterior Consistency: firm Khan score: 0 PFSH Medical History (Updated 11/07/22 @ 18:29 by Kaylie Dixon MD) ADHD Aspergers' syndrome (~2010) Depression GI bleed IBS (irritable bowel syndrome) Irritable bowel syndrome (IBS) Surgical History Anesthesia H/O colonoscopy H/O endoscopy H/O neck surgery [place] teeth extracted Family History Mother Diabetes mellitus Skin cancer, basal cell Cholecystitis Grandmother Cholecystitis Stroke Grandmother Colon cancer Grandfather Diabetes mellitus Heart disease Grandfather Heart disease Myocardial infarction Social History marital status: unmarried,single number of children: 0 household members: significant other lives independently: Yes housing: apartment pets and animals: No education level: high school occupational status: unemployed current occupational exposures/hazards: No special velia needs: No seatbelt use: always water heater temp set < 120 deg: No (water tank incapable of being adjusted below 125.) working smoke detector in home: Yes fire extinguisher in home: Yes carbon monox detector in home: Yes firearms in home: Yes firearms unloaded and locked: No (planning to buy a safe soon) do you feel safe at home: Yes Smoking Status: Former smoker second hand exposure: Yes (MJ smoke) alcohol intake: former substance use type: marijuana during the past year weight has: increased > 10 lbs well-balanced diet: rarely or never daily servings fruits/ve-1 caffeine: No Type(s) of exercise: walking frequency: 1-2 times per week Meds Home Medications and Allergies Home Medications Medication Instructions Recorded Confirmed Type prenat.vits,joann,npp-nhdt-rnzef 1 tab PO DAILY #90 tabs 06/13/22 11/07/22 Rx Double Electric Breast Pump #1 ea 09/27/22 11/07/22 Rx labetalol 200 mg tablet 200 mg PO BID #60 tabs 11/03/22 11/07/22 Rx Allergies Allergy/AdvReac Type Severity Reaction Status Date / Time arboleda flavor Allergy Intermediate Hives Verified 11/07/22 17:49 opiates AdvReac Mild Nausea Uncoded 11/07/22 17:49 OB Exam Narrative Exam Narrative: Generally: Patient is sitting up in bed, no acute distress Lungs: Clear to auscultation bilaterally Cardiovascular: Regular rate and rhythm Fundal height: 37 cm Estimated weight: 6 lb 11 oz Extremities: 2+ pitting edema to her knees. 1+ DTRs. No clonus. Ultrasound in the office: Vertex presentation. AGA 36 weeks 3 days. 6 lb 11 oz. 72%ile. ADALBERTO 14 cm. Assessment and Plan Assessment and Plan Assessment and Plan narrative: Assessment: 27-year-old 1 para 0 at 35-,3/7 weeks gestation by LMP, confirmed by first-trimester ultrasound Severe preeclampsia Unfavorable cervix Plan: Patient to present to [facility] for cervical ripening/induction of labor She will hand carry her records and history and physical exam Accepting physician: Dr. Rancho Barth Time Spent with Patient Total time spent with greater than 50% in coordination of care (as documented) at patient's floor/unit and/or counseling patient:: Greater than 35 minutes
== END 2022-11-07 18:50 | disposition home or self-care (01) ==
LOC: LABOR 16:14
PROVIDERS: Admitting Provider Obstetrics & Gynecology; PCP Family Medicine; Referring Provider Obstetrics & Gynecology; Visit Provider Obstetrics & Gynecology
DX: O14.13 Severe pre-eclampsia, third trimester (principal); O34.33 Maternal care for cervical incompetence, third trimester; Z3A.35 35 weeks gestation of pregnancy
CPT/HCPCS: 59025; 99234; G0378; G0379

== ENCOUNTER → 2022-12-04 15:43 | Outpatient (CLI) | payer OTHER, MEDICAID, SELFPAY | PROVIDERS: PCP Family Medicine; Visit Provider Physician Assistant Medical | DX: R30.0 Dysuria (principal) | CPT/HCPCS: 81002; 81025; 87086 ==

== ENCOUNTER 2022-12-11 01:22 | Observation (INO) | payer OTHER, MEDICAID, SELFPAY ==
[2022-12-11] VITALS (33 sets, daily range): BP systolic 102–170; BP diastolic 56–97; PULSE 67–98; RESP 11–25; TEMP 36–36.7; O2SAT 91–100; BMI 33.0
--- NOTE | 2022-12-11 | PATH_ITS ---
[facility] Accession Number: [id number] No. of containers..02 Tissue . 01 Material submitted: . PART A: gallbladder - GALLBLADDER PART B: appendix - APPENDIX . 01 Diagnosis: A. Gallbladder, Cholecystectomy: Gallbladder with features of adenomyosis. No evidence of neoplasm. . B. Appendix, Appendectomy: Appendix with no diagnostic abnormality. No active inflammation or neoplasm identified. MRV 12/15/2022 1456 Local . 01 Electronically signed: . Herber Casillas MD, PhD, Pathologist NPI- [id number] . 01 Gross description: . A. Received in formalin labeled gallbladder is a 6.0 cm in length by 2.6 cm in diameter, unopened, intact gallbladder with a pink-gillespie, smooth and glistening anterior serosal surface and roughened posterior bed. The wall is thickened and indurated, ranging up to 0.5 cm thick. Noted within the wall is a 1.0 cm dense fibrous band, causing a narrowing of the lumen, near the fundus. The mucosa is green-brown and granular. There are no calculi found within the lumen. The cystic duct margin is marked with blue ink. Two sales representative cash registers sections are submitted in A1. B. Received in formalin labeled appendix is a 6.2 cm in length by up to 0.7 cm in diameter, vermiform appendix with a russ-gillespie, smooth and glistening serosal surface. Perforations are not grossly identified. The wall ranges from 0.1 to 0.2 cm thick and the lumen is dilated up to 0.5 cm in diameter and is filled with red-brown semi-solid fecal material. Fecaliths are not identified. The resection margin is marked with blue ink. Quality Control Lead sections are submitted in B1. ([id number]) /MRV 12/12/2022 1833 Local . 01 Pathologist provided ICD-10: R10.9, K82.9 . 01 CPT . 373156, [id number] Specimen Comment: A courtesy copy of this report has been sent to [facility] Pathology Performed at: 01 [facility] [address] [place] [address], [place], [place] [id number] MD Jaquan Rodriguez MD Phone: [phone]
--- NOTE | 2022-12-11 | DI.US.S_ITS ---
PROCEDURE: US PELVIC COMPLETE INDICATIONS: PAIN. 1 MONTH . . TECHNIQUE: Real-time scanning was performed of the pelvic organs, with image documentation. Additional endovaginal scanning was necessary due to incomplete visualization of the adnexal and endometrial structures by transabdominal scanning. COMPARISON: None. FINDINGS: Uterus: Uterus measures 10 x 7 x 5 cm. Endometrial thickness is 11 mm. Overall echotexture is slightly heterogeneous. No significant endometrial hypervascularity. Nabothian cysts are present. Ovaries: Right ovary measures 7 cc. Left ovary measures 6 cc. Color and spectral flows are documented. Other: Urinary bladder debris is present. IMPRESSION: No significant endometrial hyperemia/vascularity. Endometrial thickness is 11 mm. Unremarkable sonographic appearance of the ovaries. Bladder debris, correlate with urinalysis. Agree with preliminary report. Dictated by: Ravinder Ansari M.D. on 12/11/2022 at 8:16 Approved by: Ravinder Ansari M.D. on 12/11/2022 at 8:18
[2022-12-11] MEDS: ONDANSETRON 4 MG/2 ML INJ IV ×7 (02:06→23:05)
[2022-12-11 02:17] LABS: Add Manual Diff / Slide Review NO; Basophils Absolute Auto 200 /uL (0-100); Basophils Percent Auto 2.1 % (0-2); Eosinophils Absolute Auto 200 /uL (0-450); Hematocrit 37.3 % (36-46); Hemoglobin 12.3 g/dL (12.0-16.0); Lymphocytes Absolute Auto 1400 /uL (1100-4500); Lymphocytes Percent Auto 15.5 % (25-40); Mean Corpuscular HGB Conc 32.8 % (30-36); Mean Corpuscular Hemoglobin 28.2 PG (26-34); Mean Corpuscular Volume 85.8 fL (80-100); Monocytes Absolute Auto 800 /uL (0-900); Monocytes Percent Auto 8.6 % (3-14); Neutrophils Absolute Auto 6300 /uL (1500-7000); Neutrophils Percent Auto 71.8 % (50-75); Platelet Count 291 X10^3/uL (150-400); Red Blood Cell Count 4.35 X10^6/uL (4.0-5.2); Red Cell Distribution Width 15.9 % (11.6-14.8); White Blood Cell Count 8.8 X10^3/uL (4.5-11.0)
[2022-12-11 02:26] LABS: Alanine Aminotransferase 47 IU/L (<35); Albumin 4.3 g/dL (3.5-5.0); Albumin Globulin Ratio 1.4 (1.0-2.8); Alkaline Phosphatase 141 U/L (38-126); Aspartate Aminotransferase 43 IU/L (14-36); BUN Creatinine Ratio 9.8 (6-22); Blood Urea Nitrogen 8 mg/dL (7-17); Calcium 8.9 mg/dL (8.4-10.2); Carbon Dioxide 23 mmol/L (22-32); Chloride 105 mmol/L (98-107); Estimated Glomerular Filt Rate > 60 mL/min (>60); Glucose 96 mg/dL (70-100); HEMOLYSIS < 15 (0-50); Lipase 76 U/L (23-300); Potassium 3.8 mmol/L (3.4-5.1); Sodium 140 mmol/L (137-145); Total Protein 7.3 g/dL (6.3-8.2)
--- NOTE | 2022-12-11 02:39 | DI.US.S_ITS ---
PROCEDURE: US ABDOMEN LIMITED INDICATIONS: RIGHT ABDOMINAL PAIN. N/V/D. 1 MONTH POST . RECTAL BLEEDING. TECHNIQUE: Real-time focused scanning was performed of the abdomen, with image documentation. COMPARISON: [facility], CT, CT ABDOMEN PELVIS W CON, 12/11/2022, 5:44. FINDINGS: Liver measures 16 cm. Overall echogenicity is increased. Gallbladder is contracted and not well seen. Patient was not NPO. Borderline wall thickening at 3 mm. Pancreas is not well seen. Possible trace right renal pelviectasis. Appendix is not well seen. IMPRESSION: No acute sonographic abnormality. The gallbladder is not well assessed due to non NPO status. Appendix was also not well seen. Overall evaluation is limited by bowel as well. Hepatic steatosis. Agree with preliminary report. Dictated by: Ravinder Ansari M.D. on 12/11/2022 at 8:04 Approved by: Ravinder Ansari M.D. on 12/11/2022 at 8:06
[2022-12-11] MEDS: LABETALOL 100 MG TABLET 200 MG PO ×2 (03:38→23:05)
[2022-12-11] MEDS: KETOROLAC 30 MG/ML VIAL 15 MG IV ×3 (03:42→11:30)
[2022-12-11 05:01] LABS: Bacteria Urine Few (2-10); Culture Indicated Urine Cult Not Indicated; RBC Urine 0-1/HPF (0-5/HPF); Squamous Epithelial Cell Urine 1-5 /HPF (0-5/HPF); WBC Urine 1-5/HPF (0-5/HPF)
--- NOTE | 2022-12-11 05:33 | ED_ITS ---
HPI - Abdominal Pain General Chief Complaint: Abdominal Pain Stated Complaint: rt side abd pain, blood in stool Time Seen by Provider: 12/11/22 03:24 Source: patient Mode of arrival: Ambulatory Limitations: no limitations History of Present Illness HPI narrative: This is a 27-year-old female one-month after having for preeclampsia, history of IBS. Patient presents with right-sided abdominal pain upper and lower for the past 1-2 days gradually progressing. No fevers. Patient has had nausea, no vomiting. No fevers with fairly generally unwell. Patient states she is had bowel she had some blood a couple days ago she states seemed be from the rectum. She is had bowel movements which have loose. Not black or bloody she states no vaginal bleeding. No discharge. Frequency, urgency occasional dysuria. Patient states it has been going on since her C- section. She states incision to be healing. Patient states only prior surgeries . She takes labetalol secondary to her preeclampsia, she is not taking any narcotic pain medication she states she is prescribed some for C- section. She is been taking Tylenol. She is allergic to artificial arboleda. No tobacco, alcohol or illicit. She is actively pumping breast milk. Patient states she is been having IBS symptoms since she was in her preteens. Related Data Previous Rx's Medication Instructions Recorded prenat.vitjeanette,joann,[id number] 1 tab PO DAILY #90 tabs 06/13/22 Double Electric Breast Pump #1 ea 09/27/22 labetalol 200 mg tablet 200 mg PO BID #60 tabs 11/03/22 oxycodone 5 mg tablet 5 mg PO Q6H PRN pain #20 tabs 11/24/22 Allergies Allergy/AdvReac Type Severity Reaction Status Date / Time arboleda flavor Allergy Intermediate Hives Verified 11/24/22 13:54 opiates AdvReac Mild Nausea Uncoded 11/24/22 13:54 Review of Systems Review of Systems ROS Unobtainable: All systems reviewed & are unremarkable except as noted in HPI and below Patient History Medical History ADHD Aspergers' syndrome (~2010) Depression GI bleed IBS (irritable bowel syndrome) Irritable bowel syndrome (IBS) Surgical History Anesthesia H/O colonoscopy H/O endoscopy H/O neck surgery [place] teeth extracted Family History Mother Diabetes mellitus Skin cancer, basal cell Cholecystitis Grandmother Cholecystitis Stroke Grandmother Colon cancer Grandfather Diabetes mellitus Heart disease Grandfather Heart disease Myocardial infarction Social History marital status: unmarried,single number of children: 0 household members: significant other lives independently: Yes housing: apartment pets and animals: No education level: high school occupational status: unemployed current occupational exposures/hazards: No special velia needs: No seatbelt use: always water heater temp set < 120 deg: No (water tank incapable of being adjusted below 125.) working smoke detector in home: Yes fire extinguisher in home: Yes carbon monox detector in home: Yes firearms in home: Yes firearms unloaded and locked: No (planning to buy a safe soon) do you feel safe at home: Yes Smoking Status: Former smoker second hand exposure: Yes (MJ smoke) alcohol intake: former substance use type: marijuana during the past year weight has: increased > 10 lbs well-balanced diet: rarely or never daily servings fruits/ve-1 caffeine: No Type(s) of exercise: walking frequency: 1-2 times per week Smoking Status: Former smoker Substance Use Type: does not use Exam Narrative Exam Narrative: GENERAL: Alert and oriented x three, female in moderate distress. HEENT: Head normocephalic, atraumatic, EOMI, pupils reactive, face symmetric, moist mucous membranes NECK: Supple, full range of motion CARDIOVASCULAR: Regular rate and rhythm without murmurs, rubs or gallops. RESPIRATORY: Breath sounds equal bilaterally, no wheezes rales or rhonchi. ABDOMEN: Soft, patient has right upper and lower quadrant tenderness. Normoa ctive bowel sounds all 4 quadrants. No guarding positive rebound no rigidity, no mass, patient has suprapubic incision that appears to be healing appropriately no dehiscence. No warmth, erythema or drainage. : No CVA tenderness EXTREMITIES: Normal range of motion, no clubbing or edema. Neurovascularly intact NEUROLOGICAL: Cranial nerves II through XII grossly intact. Moving all extremities SKIN: Warm, dry, no petechiae, no rashes or lesions. Initial Vital Signs Initial Vital Signs: Vital Signs Temperature 97.2 F L 12/11/22 01:38 Pulse Rate 91 H 12/11/22 01:38 Respiratory Rate 25 H 12/11/22 01:38 Blood Pressure 166/85 H 12/11/22 01:38 Pulse Oximetry 99 12/11/22 01:38 Oxygen Delivery Method 12/11/22 01:38 Course Orders Ordered: ED Orders 12/11/22 US pelvic complete Stat 12/11/22 01:43 EKG-12 Lead Stat 12/11/22 02:00 Complete Blood Count AUTO DIFF Stat Comprehensive Metabolic Panel Stat Lipase Stat 12/11/22 02:39 US abdomen limited Stat 12/11/22 04:25 Urine Microscopic Stat 12/11/22 05:44 CT abdomen pelvis w con Stat 12/11/22 07:26 COVID19 -Nasal RAPID/Pre-Proc Stat Ondansetron HCl (Ondansetron 4 Mg Odt) 4 mg PO NOW PRN PRN Reason: Nausea And Vomiting Ondansetron HCl (Ondansetron 4 Mg/2 Ml Inj) 4 mg IV NOW PRN PRN Reason: Nausea And Vomiting Last Admin: 12/11/22 07:42 Dose: 4 mg Documented By: Admin: 12/11/22 02:06 Dose: 4 mg Documented By: GABBY Discontinued Medications Sodium Chloride (Normal Saline 0.9%) 1,000 mls @ 1,000 mls/hr IV BOLUS ONE Stop: 12/11/22 06:44 Last Infusion: 12/11/22 07:21 Dose: 0 mls/hr Documented By: Admin: 12/11/22 05:58 Dose: 1,000 mls/hr Documented By: GABBY Piperacillin Sod/Tazobactam (Sod 4.5 gm/ Sodium Chloride) 100 mls @ 200 mls/hr IV NOW ONE Stop: 12/11/22 06:45 Last Admin: 12/11/22 07:35 Dose: 200 mls/hr Documented By: DEBBI Ketorolac Tromethamine (Ketorolac 30 Mg/Ml Vial) 15 mg IV NOW ONE Stop: 12/11/22 03:36 Last Admin: 12/11/22 03:42 Dose: 15 mg Documented By: GABBY Labetalol HCl (Labetalol 100 Mg Tablet) 200 mg PO NOW ONE Stop: 12/11/22 03:27 Last Admin: 12/11/22 03:38 Dose: 200 mg Documented By: GABBY Morphine Sulfate (Morphine 4 Mg/Ml Inj) 4 mg IV NOW ONE Stop: 12/11/22 05:45 Last Admin: 12/11/22 05:57 Dose: 4 mg Documented By: GABBY Ondansetron HCl (Ondansetron 4 Mg/2 Ml Inj) 4 mg IV NOW ONE Stop: 12/11/22 05:45 Last Admin: 12/11/22 05:57 Dose: 4 mg Documented By: GABBY Vital Signs Vital signs: Vital Signs - 8 hr 12/11/22 01:38 12/11/22 01:59 12/11/22 01:59 Temperature 97.2 F L Pulse Rate 91 H 74 Respiratory Rate 25 H Blood Pressure 166/85 H 153/92 H Pulse Oximetry 99 100 Oxygen Delivery Method Room Air Room Air 12/11/22 02:00 12/11/22 02:00 12/11/22 03:38 Temperature Pulse Rate 79 75 Respiratory Rate Blood Pressure 149/88 H 145/82 H Pulse Oximetry 99 Oxygen Delivery Method Room Air 12/11/22 02:30 12/11/22 02:30 12/11/22 03:00 Temperature Pulse Rate 69 Respiratory Rate 19 Blood Pressure 137/77 134/79 Pulse Oximetry 97 Oxygen Delivery Method Room Air 12/11/22 03:00 12/11/22 03:30 12/11/22 03:30 Temperature Pulse Rate 75 75 Respiratory Rate 15 18 Blood Pressure 145/82 H Pulse Oximetry 97 98 Oxygen Delivery Method Room Air Room Air 12/11/22 04:00 12/11/22 04:00 12/11/22 04:36 Temperature Pulse Rate 76 71 Respiratory Rate 20 17 Blood Pressure 123/64 Pulse Oximetry 98 98 Oxygen Delivery Method Room Air Room Air 12/11/22 04:00 12/11/22 05:00 12/11/22 05:00 Temperature Pulse Rate 76 70 Respiratory Rate 20 Blood Pressure 123/64 124/70 Pulse Oximetry 98 Oxygen Delivery Method Room Air 12/11/22 05:30 12/11/22 05:30 12/11/22 06:00 Temperature Pulse Rate 68 67 Respiratory Rate 12 11 L Blood Pressure 123/74 Pulse Oximetry 98 99 Oxygen Delivery Method MDM - Abdominal Pain Lab Data 12/11/22 02:00 12/11/22 02:00 Labs: Lab Results 12/11/22 12/11/22 12/11/22 Range/Units 02:00 02:00 04:25 WBC 8.8 (4.5-11.0) X10^3/uL RBC 4.35 (4.0-5.2) X10^6/uL Hgb 12.3 (12.0-16.0) g/dL Hct 37.3 (36-46) % MCV 85.8 (80-100) fL MCH 28.2 (26-34) PG MCHC 32.8 (30-36) % RDW 15.9 H (11.6-14.8) % Plt Count 291 (150-400) X10^3/uL Neut % (Auto) 71.8 (50-75) % Lymph % (Auto) 15.5 L (25-40) % [place] % (Auto) 8.6 (3-14) % Eos % (Auto) 2.0 (2-4) % Baso % (Auto) 2.1 H (0-2) % Neut # (Auto) 6300 (3208-9804) /uL Lymph # (Auto) 1400 (8676-8092) /uL [place] # (Auto) 800 (0-900) /uL Eos # (Auto) 200 (0-450) /uL Baso # (Auto) 200 H (0-100) /uL Sodium 140 (137-145) mmol/L Potassium 3.8 (3.4-5.1) mmol/L Chloride 105 (98-107) mmol/L Carbon Dioxide 23 (22-32) mmol/L BUN 8 (7-17) mg/dL Creatinine 0.82 (0.52-1.04) mg/dL Estimated GFR > 60 (>60) mL/min BUN/Creatinine Ratio 9.8 (6-22) Glucose 96 (70-100) mg/dL Calcium 8.9 (8.4-10.2) mg/dL Total Bilirubin 1.0 (0.2-1.3) mg/dL AST 43 H (14-36) IU/L ALT 47 H (<35) IU/L Alkaline Phosphatase 141 H (38-126) U/L Total Protein 7.3 (6.3-8.2) g/dL Albumin 4.3 (3.5-5.0) g/dL Globulin 3.0 (1.7-4.1) g/dL Albumin/Globulin Ratio 1.4 (1.0-2.8) Lipase 76 (23-300) U/L Urine RBC 0-1/hpf (0-5/HPF) Urine WBC 1-5/hpf (0-5/HPF) Ur Squamous Epith Cells 1-5 /hpf (0-5/HPF) Urine Bacteria Few (2-10) H (None) Ur Culture Indicated? Cult not indicated Point of care testing: Point of Care Testing Test Results Negative Urine Dip Bedside Urine Glucose Negative Bedside Urine Bilirubin - Negative Bedside Urine Ketone - Negative Urine Specific [place] 1.025 Bedside Urine Occult Blood - Negative Bedside Urine pH 6.0 Bedside Urine Protein +/- 15 Bedside Urine Urobilinogen - Negative Bedside Urine Nitrite - Negative Bedside Urine Leukocytes - Negative Esterase Imaging Data US - HOOP BENDER TANK: Radiologist's Impression: No defined retained products of conception.? Tiny internal echoes bladder suggesting small debris possibly mild proteinaceous particulars UA advised.? Simple appearing anechoic free fluid in the posterior cul-de-sac.? Negative for ovarian torsion. US - abdomen: Radiologist's Impression: Mild hepatic steatosis. Nonvisualized appendix. No acute process. Contracted gallbladder. Wall thickness within normal limits of gallbladder contraction at 3.1 mm. No wall edema. No intraluminal echoes just in his he is in the bladder. No pericholecystic fluid. Normal directional flow in the portal vein. Mildly echogenic liver. Normal contour. Normal liver size. No intra hepatic ductal dilation. CT scan - abdomen/pelvis: Radiologist's Impression: Dilation of the appendix without mural thickening or adjacent inflammation. No other bowel distention. Spleen slightly enlarged measuring 14 cm. Small amount of free fluid. Stranding anterior fat at the urinary bladder consistent with history of recent surgery. MDM Narrative Medical decision making narrative: 27-year-old female with gradual worsening of right-sided abdominal pain patient is quite tender right upper and lower quadrant tender. Afebrile, patient's labs show normal CBC, slightly elevated AST ALT of 4347 with alk-phos of 141 normal bilirubin normal lipase renal function electrolytes normal. Urine shows few bacteria 1-5 wbc's. 1-5 squamous epithelials. Point of care urine is negative for nitrites negative for leukocyte esterase, protein. Negative for glucose. Negative test. Abdominal ultrasound pelvic shows some simple appearing free fluid in the posterior cul-de-sac and some EKOS suggesting debris in the bladder, mild hepatic steatosis nonvisualized appendix. Contracted gallbladder but normal thickness. Based on patient's amount of pain on repeat examination even after medication patient is quite tender right upper and lower quadrant which would be atypical for pyelo or UTI. Patient's appendix is visualized appears dilated but no wall thickening or periappendiceal inflammatory changes. Patient's spleen is slightly enlarged. Discussed with Dr. Menon, general surgery plan for observation, patient had been covered with dose of IV antibiotic we will continue this. Discharge Plan Departure Patient Disposition: Admitted as Observation Clinical Impression: Abdominal pain Admit Date/Time: 12/11/22 07:51
--- NOTE | 2022-12-11 05:44 | DI.CT.S_ITS ---
PROCEDURE: CT ABDOMEN PELVIS W CON INDICATIONS: right abd pain, upper and lower, s/p csection 11/13 TECHNIQUE: After the administration of intravenous contrast, axial sections acquired from the lung bases to the pubic symphysis. Coronal and sagittal reformats were performed. For radiation dose reduction, the following was used: automated exposure control, adjustment of mA and/or kV according to patient size. COMPARISON: None. FINDINGS: Image quality: Excellent. Lung bases: Unremarkable. Heart: No significant findings. ABDOMEN: Liver: Unremarkable. Gallbladder: Gallbladder is mildly contracted. Biliary ducts: Unremarkable. Pancreas: Unremarkable. Spleen: Mildly enlarged. Adrenal Glands: Unremarkable. Kidneys and Ureters: Unremarkable. Stomach and Bowel: Stomach, small bowel loops, and colon are unremarkable. Appendix is filled with air and fecal material and measures up to 8 mm in diameter. No periappendiceal inflammatory changes. Peritoneum: Small amount of simple free fluid is seen in the pelvis. No pneumoperitoneum. Ventral Wall: No hernias. Abdominal Nodes: No retroperitoneal or mesenteric adenopathy by size criteria. Vessels: Aorta and inferior vena cava are normal in size. PELVIS: Pelvic Organs: Postsurgical changes are seen in the anterior pelvis from recent section.. Bladder: Unremarkable. Pelvic Nodes: No enlarged lymph nodes. Miscellaneous: No hernias are seen. Bones: Unremarkable. IMPRESSION: 1. Appendix is slightly enlarged but otherwise normal in appearance without periappendiceal fat stranding, favored to represent normal variation rather than acute appendicitis, but clinical correlation is recommended. 2. Mild splenomegaly. 3. Trace simple free fluid in the pelvis is nonspecific and most likely physiologic. There is no significant discrepancy when compared to the overnight preliminary report. Approved by: Williams Berg M.D. on 12/11/2022 at 8:21
[2022-12-11] MEDS: MORPHINE 4 MG/ML INJ IV (05:57)
[2022-12-11] MEDS: SODIUM CHLORIDE 0.9% 1,000 ML 1000 ML IV (05:58)
[2022-12-11] MEDS: PIPERACILLIN/TAZO 4.5 GM in SODIUM CHLORIDE 0.9% 100 ML IV (07:35)
--- NOTE | 2022-12-11 08:03 | PC.NURSE ---
significant other Faisal Good [phone]
[2022-12-11 08:14] LABS: COVID19 -Nasal RAPID Negative (Negative)
[2022-12-11] MEDS: HYDROMORPHONE 1 MG INJ IV ×2 (10:32→12:59)
[2022-12-11] MEDS: PIPERACILLIN/TAZO 3.375 GM in SODIUM CHLORIDE 0.9% 100 ML IV (11:33)
[2022-12-11] MEDS: HYDROMORPHONE 0.5 MG INJ IV (11:36)
--- NOTE | 2022-12-11 12:24 | P.HP_ITS ---
History of Present Illness History of Present Illness Date Patient Seen: 12/11/22 Time Patient Seen: 12:24 Chief complaint: rt side abd pain, blood in stool Narrative: Ms. Rodriguez states that she has been having ?super intense? right-sided abdominal pain. Additionally she is been very very nauseated. She thinks that it is the pain that is causing the nausea. This intensity of pain really started yesterday. The day before she was feeling like some IBS or gas pain that was like what she has had in the past but now it is intensified to the point where it is beyond anything she is ever felt before. She did have some blood with wiping yesterday and she was constipated but started having some diarrhea with yellow and brown stool today. Over the course of today the pain has become sharper and more painful. A bowel movement did not relieve the pain. She has had a depressed appetite for the last few days. She is not aware of having had any gallbladder issues however all of the women in her family have had their gallbladder removed in the past. Her LFTs were slightly elevated but she attributed this to her preeclampsia that she is being treated for she takes labetalol 200 mg q.8 hours. Her total bilirubin is 1.0 and alk phos is 141. AST and ALT are 43 and 47 respectively Patient History Medical History ADHD Aspergers' syndrome (~2010) Depression GI bleed IBS (irritable bowel syndrome) Irritable bowel syndrome (IBS) Surgical History Anesthesia H/O colonoscopy H/O endoscopy H/O neck surgery [place] teeth extracted Family & Social History Family History Mother Diabetes mellitus Skin cancer, basal cell Cholecystitis Grandmother Cholecystitis Stroke Grandmother Colon cancer Grandfather Diabetes mellitus Heart disease Grandfather Heart disease Myocardial infarction Social History: household members significant other Prior Living Arrangements Apartment/Condo lives independently Yes Safety & Behavioral: Feels Safe in Current Yes Environment Tobacco & Substance use: Smoking Status Former smoker alcohol intake former Substance Use Type does not use Meds Home Medications and Allergies Home Medications Medication Instructions Recorded Confirmed Type prenat.vits,joann,[id number] 1 tab PO DAILY #90 tabs 06/13/22 12/11/22 Rx Double Electric Breast Pump #1 ea 09/27/22 12/11/22 Rx labetalol 200 mg tablet 200 mg PO Q8H 12/11/22 12/11/22 History Allergies Allergy/AdvReac Type Severity Reaction Status Date / Time arboleda flavor Allergy Intermediate Hives Verified 11/24/22 13:54 opiates AdvReac Mild Nausea Uncoded 11/24/22 13:54 Exam Vital Signs (past 8 hours): - 12/11/22 04:36 12/11/22 05:00 12/11/22 05:00 Temperature Pulse Rate 71 70 Respiratory Rate 17 20 Blood Pressure 124/70 Pulse Oximetry 98 98 Oxygen Delivery Method Room Air Room Air 12/11/22 05:30 12/11/22 05:30 12/11/22 06:00 Temperature Pulse Rate 68 67 Respiratory Rate 12 11 L Blood Pressure 123/74 Pulse Oximetry 98 99 Oxygen Delivery Method 12/11/22 06:30 12/11/22 07:00 12/11/22 07:30 Temperature Pulse Rate 74 70 69 Respiratory Rate 21 11 L 15 Blood Pressure Pulse Oximetry 98 98 98 Oxygen Delivery Method 12/11/22 08:02 12/11/22 08:07 12/11/22 08:07 Temperature Pulse Rate 91 H 82 Respiratory Rate 13 18 Blood Pressure 133/82 Pulse Oximetry 97 98 Oxygen Delivery Method 12/11/22 08:30 12/11/22 08:30 12/11/22 09:00 Temperature Pulse Rate 73 Respiratory Rate 18 Blood Pressure 122/63 119/75 Pulse Oximetry 97 Oxygen Delivery Method 12/11/22 09:00 12/11/22 10:27 Temperature 98 F Pulse Rate 76 76 Respiratory Rate 17 18 Blood Pressure 119/83 Pulse Oximetry 98 98 Oxygen Delivery Method Oxygen Delivery Method Room Air Const General: cooperative, healthy appearing and in distress (In mild distress she appears uncomfortable BMI 33) Nutritional Appearance: obese HENMT Head: normocephalic Other: Oral mucous membranes are dry Eyes General: appearance normal, both eyes and all related structures Neck Neck: full ROM Resp Effort & Inspection: normal respiratory effort and able to speak in complete sentences Cardio Pulses: radial pulses present GI Inspection: scar ( scar is well healed) Palpation: soft and tender (Markedly tender in both the right upper and right lower quadrant.) Neuro General: patient alert and patient awake Objective Labs 12/11/22 02:00 12/11/22 02:00 Labs: Laboratory Results - last 24 hr 12/11/22 12/11/22 12/11/22 02:00 02:00 04:25 WBC 8.8 RBC 4.35 Hgb 12.3 Hct 37.3 MCV 85.8 MCH 28.2 MCHC 32.8 RDW 15.9 H Plt Count 291 Neut % (Auto) 71.8 Lymph % (Auto) 15.5 L [place] % (Auto) 8.6 Eos % (Auto) 2.0 Baso % (Auto) 2.1 H Neut # (Auto) 6300 Lymph # (Auto) 1400 [place] # (Auto) 800 Eos # (Auto) 200 Baso # (Auto) 200 H Sodium 140 Potassium 3.8 Chloride 105 Carbon Dioxide 23 BUN 8 Creatinine 0.82 Estimated GFR > 60 BUN/Creatinine Ratio 9.8 Glucose 96 Calcium 8.9 Total Bilirubin 1.0 AST 43 H ALT 47 H Alkaline Phosphatase 141 H Total Protein 7.3 Albumin 4.3 Globulin 3.0 Albumin/Globulin Ratio 1.4 Lipase 76 Urine RBC 0-1/hpf Urine WBC 1-5/hpf Ur Squamous Epith Cells 1-5 /hpf Urine Bacteria Few (2-10) H Ur Culture Indicated? Cult not indicated SARS-CoV-2 (PCR) 12/11/22 07:39 WBC RBC Hgb Hct MCV MCH MCHC RDW Plt Count Neut % (Auto) Lymph % (Auto) [place] % (Auto) Eos % (Auto) Baso % (Auto) Neut # (Auto) Lymph # (Auto) [place] # (Auto) Eos # (Auto) Baso # (Auto) Sodium Potassium Chloride Carbon Dioxide BUN Creatinine Estimated GFR BUN/Creatinine Ratio Glucose Calcium Total Bilirubin AST ALT Alkaline Phosphatase Total Protein Albumin Globulin Albumin/Globulin Ratio Lipase Urine RBC Urine WBC Ur Squamous Epith Cells Urine Bacteria Ur Culture Indicated? SARS-CoV-2 (PCR) Negative Assessment & Plan Assessment and plan (1) Abdominal pain: Qualifiers: Abdominal location: upper abdomen, unspecified Qualified Code(s): R10.10 - Upper abdominal pain, unspecified Status: Acute Assessment & Plan narrative: I have personally reviewed the images from both the CT scan and the ultrasound of the right upper quadrant. I do not know that the ultrasound confidently rules out acute cholecystitis. A CT scan has a tendency to Under diagnose acute cholecystitis. The appendix is borderline enlarged on the CT but there is no inflammatory signs surrounding it. There is fluid in her abdomen, which could be as a result of recent . However her history and physical exam are indicative of some acute process. In fact I almost favor acute cholecystitis over acute appendicitis just given her risk factors and history. However either 1 would fit with both history and the physical exam. Given the LFTs again it could be eclampsia she thought but there is an alk-phos elevation which may the in favor of acute cholecystitis over acute appendicitis. I am going to offer her a diagnostic laparoscopy. If her appendix looks a bnormal I will take it out but I think I should look more closely at her gallbladder and I am thinking her gallbladder is going to be inflamed. Meanwhile it is appropriate treatment to continue with Zosyn NPO and pain control. She understands the risks benefits and alternatives of proceeding with surgery and she would like to proceed. Time Spent With Patient Critical Care time: I spent a total of [] minutes of critical care time on this patient's care today; this time is exclusive of procedural time. Quality VTE Deep Vein Thrombosis/Pulmonary Embolism Present on Admission: No
[2022-12-11] MEDS: LACTATED RINGERS 1,000 ML 42 ML IV ×3 (14:10→16:33)
--- NOTE | 2022-12-11 15:02 | SUR.OPER ---
Supine on padded OR bed, head on pillow, safety belt at thigh, left arm padded and tucked at side. Right arm secured on padded arm board <90 degrees abduction. Legs uncrossed. Padded footboard in place with gel pad under heels. Tape over blanket to secure lower legs.
[2022-12-11] MEDS: BUPIVACAINE 0.5% W/ EPI (PF) 30 ML VIAL INJ (15:27)
[2022-12-11] MEDS: BUPIVACAINE 0.5% W/ EPI (PF) 30 ML VIAL 20 ML INJ (17:18)
--- NOTE | 2022-12-11 18:05 | P.OP_ITS ---
Operative Date/Time/Diagnoses Date of procedure: 12/11/22 Pre-op diagnosis: Right lower quadrant pain - possible acute cholecystitis versus acute appendicitis Procedure & Clinicians Procedure: Laparoscopic appendectomy Laparoscopic cholecystectomy Incisional hernia repair size of hernia: 2 cm Same procedure as scheduled: Yes Indications: Mrs. Rodriguez presented to the emergency room with severe right lower quadrant pain. She had both an ultrasound and a CT scan that were kind of equivocal. She has a lot of risk factors for acute cholecystitis but her gallbladder was not well visualized on the ultrasound. CT scan showed that her appendix was enlarged but without inflammatory changes. Her pelvic ultrasound was unremarkable and her ovaries looked normal. But she definitely did have acute relatively severe right lower quadrant pain that mimiced appendicitis on exam. Surgeon: Daksha Menon Click Yes if Unassisted: Yes Anesthesia Type: General Operative Notes Findings: There were some inflammatory adhesions in the right upper quadrant to the gallbladder. The omentum was plastered against the gallbladder and the cystic duct and cystic artery had some chronic inflammatory changes. Further the appendix was not inflamed but it was on the upper limits of normal in terms of its size. There was a hernia at the incision. The hernia contained omentum and when that hernia contents was reduced I was able to see the right ovary had a hemorrhagic cyst that had ruptured. I had our registrar museum on-call Dr. Ruth Dixon come to the operating room to take a look at the ovary. Specimen(s): other (1. Gallbladder 2. Appendix) Procedure in detail: Patient was taken to the operating room and placed supine on the operating room table. A time-out was performed. Preoperative antibiotics had been administered. General endotracheal anesthesia was induced. The abdomen was prepped and draped in the usual sterile fashion. Incision was made above the umbilicus after infusing local anesthetic. This was carried down through the subcutaneous tissues to the anterior abdominal wall which were grasped with 2 Agustina retractors and elevated. An 11 blade scalpel was used to enter into the abdominal cavity. Under direct visualization Higinio trocar was placed. The 30 degree 10 mm camera was introduced into the abdomen and no evidence of entry in jury was seen. At this time the very 1st thing that I saw as I looked toward the pelvis was a tongue of omentum incarcerated within the anterior abdominal wall. This was photographed. As I pulled the omentum down out of the hernia defect I could see that there was a definite defect in the abdominal closure. This was located in the midline however not on the right side so I really could not be sure if that was contributing to her pain. After pulling down the omentum I took a look further in the right lower quadrant. I saw an ovary that had a hemorrhagic cyst that had probably burst and called Dr. Ruth Dixon take a look at that. Meanwhile I checked the appendix which came forward quite easily and though it was larger than average in size there were no secondary signs of inflammation around. Next I looked up into the right upper quadrant and I positioned the patient with her head up to visualize the gallbladder a little better. There were omental attachments to the anterior wall of the gallbladder. I used electrocautery to take down these attachments and take a further look. As I worked toward the critical structures it appeared to me that there was some chronic inflammation and the tissue planes were difficult to delineate. However with careful dissection in the usual fashion I was able to obtain a critical view. I did puncture the gallbladder during the course of the dissection and some bile spilled. I proceeded to doubly clip and ligate the cystic duct and again the artery. There were some other tissue areas that I doubly clipped and ligated out of an abundance of caution. I then removed the gallbladder from the gallbladder fossa using electrocautery. There was an area in the middle of the fossa where there was some hepatic bleeding this was cauterized several times and treated with a Surgicel. At the end of the case the area looked hemostatic and the clips were secure. Next I turned my attention to the right lower quadrant and based on Dr. Dixon's input I decided I should remove the appendix because it looked abnormal and I feared that if this pain happened again even if it was from a hemorrhagic cyst that her imaging would come back in the same equivocal way and that she would eventually end up getting an appendectomy. At this time because I had the appendix in front of me and was able to easily pass a stapler across the base. I decided to proceed. I used a blue load to come across the base of the appendix after opening a window. Next I used a white vascular load to come across the mesentery of the appendix. This staple line di d have some bleeding from it as well. This bleeding was secured with few more laparoscopic clips. Eventually this area was hemostatic as well. Finally after suctioned and irrigating I addressed the hernia that was seen initially. I used a Eddie Lyons device and made a small incision in the skin overlying the hernia. I passed an 0 Prolene suture on a Eddie Lyons through 1 side of the defect and then pulled the other side of that suture through the other side of the defect using the Eddie Lyons and secured a full-thickness interrupted suture to close the defect. A photograph was taken of the completed repair. The pneumoperitoneum was reduced to 8 while I tied the knot. I reinsufflated the abdomen then to 15 mmHg and reinspected both the staple line at the appendix as well as the liver bed. I irrigated and suctioned everything looked hemostatic and I removed the port sites under direct visualization. There was a hematomas at each of the accessory port sites especially the midclavicular 5 mm port site on the right. I injected a little bit more epinephrine around that area and held pressure on it well I close the skin of the additional port sites. These hematomas were not expanding and were contained. I would expect some potential bruising at the area. The umbilical trocar site was closed with 2 previously placed 0 Vicryl sutures in interrupted fashion skin of all the incisions was closed with 4-0 Monocryl. Wounds were dressed with Steri-Strips and the patient went in good condition to the postoperative care unit. Complications: none Post-operative Condition: stable Disposition: PACU
[2022-12-11] MEDS: hydrOXYzine 50 MG/ML INJ 25 MG IM (18:57)
--- NOTE | 2022-12-11 19:42 | PC.NURSE ---
post op pt to AC from PACU at 1900. VSS; htn consistent with baseline. 5 bandages to abdomen; R lateral bandage with shadow drainage all others CDI. LR infusing @ 42cc/hr. pt states nausea. Medicated with zofran and vistril in PACU prior to transfer. cool cloth provided to forehead for comfort. pt instructed on splinting abdomen if does have dry heaves or vomiting. HOB elevated with blue emesis bag in reach. Ice packs to abdomen for comfort. pt has family in room, supportive of care. Pt instructed to use call light for any needs and prior to activity. Continuous O2 monitor in place.
[2022-12-11] MEDS: KETOROLAC 30 MG/ML VIAL IV (23:05)
[2022-12-12] VITALS (10 sets, daily range): BP systolic 127–143; BP diastolic 71–80; PULSE 82–92; RESP 16–20; TEMP 36–36.9; O2SAT 94–98
[2022-12-12] MEDS: HYDROMORPHONE 0.5 MG INJ IV (01:21)
[2022-12-12] MEDS: KETOROLAC 30 MG/ML VIAL IV ×3 (05:33→16:24)
[2022-12-12] MEDS: LABETALOL 100 MG TABLET 200 MG PO ×3 (08:59→21:06)
[2022-12-12] MEDS: OXYCODONE/ACETAMINOPHEN 5/325 TABLET 1 TAB PO (09:00)
[2022-12-12] MEDS: OXYCODONE/ACETAMINOPHEN 5/325 TABLET 2 TAB PO ×3 (10:02→19:39)
--- NOTE | 2022-12-12 11:38 | PM.PN.1 ---
Subjective Subjective Interval history: Feeling pretty rough today. Coughing coughing is causing very intense pain in her incisional wounds. She had this after her . She has gotten up to the bathroom 1 time and she is eating a regular diet and taking oral pain medicines. Exam Vital Signs (past 8 hours): - 12/12/22 06:00 12/12/22 07:38 12/12/22 08:59 Temperature 96.8 F L 98.5 F Pulse Rate 85 92 H 92 H Respiratory Rate 18 18 Blood Pressure 129/80 127/71 127/71 Pulse Oximetry 97 95 Oxygen Delivery Method Oxygen Flow Rate 0 0 12/12/22 07:00 Temperature Pulse Rate Respiratory Rate Blood Pressure Pulse Oximetry Oxygen Delivery Method Room Air Oxygen Flow Rate Oxygen Delivery Method Room Air Oxygen Flow Rate 0 Narrative Exam Narrative: Patient is awake alert oriented in no acute distress and her wounds are clean dry and intact. There are Band-Aids over top of the wounds her abdomen is appropriately tender. Objective Labs 12/11/22 02:00 12/11/22 02:00 [facility] Medical History ADHD Aspergers' syndrome (~2010) Depression GI bleed IBS (irritable bowel syndrome) Irritable bowel syndrome (IBS) Surgical History Anesthesia H/O colonoscopy H/O endoscopy H/O neck surgery [place] teeth extracted Family History Mother Diabetes mellitus Skin cancer, basal cell Cholecystitis Grandmother Cholecystitis Stroke Grandmother Colon cancer Grandfather Diabetes mellitus Heart disease Grandfather Heart disease Myocardial infarction Social History marital status: unmarried,single number of children: 0 household members: significant other lives independently: Yes housing: apartment pets and animals: No education level: high school occupational status: unemployed current occupational exposures/hazards: No special velia needs: No seatbelt use: always water heater temp set < 120 deg: No (water tank incapable of being adjusted below 125.) working smoke detector in home: Yes fire extinguisher in home: Yes carbon monox detector in home: Yes firearms in home: Yes firearms unloaded and locked: No (planning to buy a safe soon) do you feel safe at home: Yes Smoking Status: Never smoker second hand exposure: Yes (MJ smoke) alcohol intake: current substance use type: marijuana during the past year weight has: increased > 10 lbs well-balanced diet: rarely or never daily servings fruits/ve-1 caffeine: No Type(s) of exercise: walking frequency: 1-2 times per week Assessment & Plan Assessment and plan (1) Postoperative abdominal pain: Status: Acute Assessment & Plan narrative: Today I am going to continue her diet and continue to try to transition her to oral pain medicines. I will encourage her to ambulate. If she feels better in the afternoon she may discharge home if not she can stay the night. I think that what she is experiencing with the pain under her ribs is gas pain which should improve in the next day or so. Additionally for the cough and wondering if she did not have some reactive airways due to the intubation and I am going to try some albuterol for that. I am going to hold DVT prophylaxis just for today and if she is here tomorrow she will receive a dose of Lovenox. Time Spent With Patient Critical Care time: I spent a total of [] minutes of critical care time on this patient's care today; this time is exclusive of procedural time. Quality VTE Deep Vein Thrombosis/Pulmonary Embolism Present on Admission: No
--- NOTE | 2022-12-12 12:10 | CM.DANOTE ---
DCP: Assessment: Pt is a 27yo female one-month after having a for preeclampsia, history of IBS who presented to ED via pov with c/o right sided, upper and lower abdominal pain for the previous one to two days and blood coming from her rectum. She was admitted under the care of general surgical team and underwent laparoscopic appendectomy, laparoscopic cholecystectomy, incisional hernia repair. It is noted that pt has a long family history of gall bladder removal. This CM met with pt in her room. Introduced self and role. Pt sitting up in the bed using breast pumps to prepare milk for her daughter who is currently with her Mom. Pt confirms that she lives with her sis and her 5wk old [place]. Pt states that she drives at baseline but not since she was diagnosed with pre-eclampsia and is taking the medication Lobetalol. She denies using DME. PCP: Rolo Suazo Insurance: [employer] Medicaid P: Home with Fiterrence and daughter when medically stable. Per pt statement. My Mom will be helping me with the baby and taking me to any appointments. Myriam Gonzalez RN Case Manager Discharge Planning/Care Management CM Discharge Assessment Start: 12/12/22 11:58 Freq: Status: Active Protocol: Document 12/12/22 11:59 RICK (Rec: 12/12/22 12:10 RICK [id number]) Discharge Planning Assessment Assigned Meter/Relay Technician Myriam Gonzalez RN Case Manager Advance Directives? No History Provided By Patient,Medical Record Has Patient been admitted in last 30 No days? Prior Living Arrangements Apartment/Condo Household Members significant other,children Comment Pt lives with fiance and new born baby of approx 5weeks Type of transporation used prior to Relies on Others admit Comment Pt drives at baseline but has not driven due to pre- eclampsia side effects with she currently relies on others Independent with ADL's Yes Is patient alert and oriented? Yes Caregiver for Another Yes: NNew born baby girl of 5wks old. Pt's Mom is supporting with care. Barriers to Discharge No Discharge Plan Home Transportation Arrangement Sis will provide transport Referrals Initiated None needed Whiteboard Updated in Patient Room with Yes name and ext. # of Meter/Relay Technician Review Status In Process Next Review Type Continued Stay Review
[2022-12-12] MEDS: ALBUTEROL 2.5 MG/3 ML NEB (ADULT) INH (13:30)
[2022-12-12] MEDS: ONDANSETRON 4 MG/2 ML INJ IV (21:06)
[2022-12-13] VITALS (7 sets, daily range): BP systolic 106–125; BP diastolic 59–76; PULSE 73–93; RESP 12–19; TEMP 36.1–36.4; O2SAT 95–97
[2022-12-13] MEDS: KETOROLAC 30 MG/ML VIAL IV ×2 (05:17→10:21)
[2022-12-13] MEDS: OXYCODONE/ACETAMINOPHEN 5/325 TABLET 1 TAB PO (09:08)
[2022-12-13] MEDS: LABETALOL 100 MG TABLET 200 MG PO ×2 (09:08→14:11)
[2022-12-13] MEDS: ALBUTEROL 2.5 MG/3 ML NEB (ADULT) INH (09:16)
[2022-12-13] MEDS: LOPERAMIDE 2 MG CAPSULE PO (11:33)
[2022-12-13] MEDS: OXYCODONE/ACETAMINOPHEN 5/325 TABLET 2 TAB PO (13:10)
--- NOTE | 2022-12-13 15:03 | PM.PN.1 ---
Subjective Subjective Date Patient Seen: 12/13/22 Time Patient Seen: 14:22 Interval history: doing well Exam Vital Signs (past 8 hours): - 12/13/22 09:08 12/13/22 09:22 12/13/22 09:19 Temperature 97.5 F L Pulse Rate 82 93 H 73 Respiratory Rate 16 12 Blood Pressure 112/70 112/70 Pulse Oximetry 97 95 Oxygen Delivery Method Room Air Oxygen Flow Rate 0 12/13/22 13:06 12/13/22 14:11 Temperature 97.5 F L Pulse Rate 85 82 Respiratory Rate 14 Blood Pressure 118/72 Pulse Oximetry 97 Oxygen Delivery Method Oxygen Flow Rate 0 Oxygen Delivery Method Room Air Oxygen Flow Rate 0 Narrative Exam Narrative: abd soft, benign, wounds intact Objective Labs 12/11/22 02:00 12/11/22 02:00 PFSH Medical History ADHD Aspergers' syndrome (~2010) Depression GI bleed IBS (irritable bowel syndrome) Irritable bowel syndrome (IBS) Surgical History Anesthesia H/O colonoscopy H/O endoscopy H/O neck surgery [place] teeth extracted Family History Mother Diabetes mellitus Skin cancer, basal cell Cholecystitis Grandmother Cholecystitis Stroke Grandmother Colon cancer Grandfather Diabetes mellitus Heart disease Grandfather Heart disease Myocardial infarction Social History marital status: unmarried,single number of children: 0 household members: significant other and children lives independently: Yes housing: apartment pets and animals: No education level: high school occupational status: unemployed current occupational exposures/hazards: No special velia needs: No seatbelt use: always water heater temp set < 120 deg: No (water tank incapable of being adjusted below 125.) working smoke detector in home: Yes fire extinguisher in home: Yes carbon monox detector in home: Yes firearms in home: Yes firearms unloaded and locked: No (planning to buy a safe soon) do you feel safe at home: Yes Smoking Status: Never smoker second hand exposure: Yes (MJ smoke) alcohol intake: current substance use type: marijuana during the past year weight has: increased > 10 lbs well-balanced diet: rarely or never daily servings fruits/ve-1 caffeine: No Type(s) of exercise: walking frequency: 1-2 times per week Assessment & Plan Assessment & Plan narrative: s/p garry haile, hernia repair plan: home Time Spent With Patient Critical Care time: I spent a total of [] minutes of critical care time on this patient's care today; this time is exclusive of procedural time. Quality VTE Deep Vein Thrombosis/Pulmonary Embolism Present on Admission: No
--- NOTE | 2022-12-13 15:06 | PM.DS.1 ---
History of Present Illness History of Present Illness Date Patient Seen: 12/13/22 Time Patient Seen: 14:22 Discharge Providers Provider Date of admission: 12/12/22 15:00 Discharge Date: 11/12/22 Primary care physician: Rolo Suazo DO Discharge provider: Lucrecia Sanchez MD Summary Hospital Course Discharge Diagnosis: cholecystitis, hernia, appendicitis Hospital Course: s/p lap appy, rosina, ventral hernia. Status at Discharge Cognitive/behavioral status at discharge: at baseline, oriented Functional status at discharge: independent ambulation Overall status at discharge: patient is progressing back to baseline Time Spent with Patient Time spent: Less than 30 minutes Exam Vital Signs (past 8 hours): - 12/13/22 09:08 12/13/22 09:22 12/13/22 09:19 Temperature 97.5 F L Pulse Rate 82 93 H 73 Respiratory Rate 16 12 Blood Pressure 112/70 112/70 Pulse Oximetry 97 95 Oxygen Delivery Method Room Air Oxygen Flow Rate 0 12/13/22 13:06 12/13/22 14:11 Temperature 97.5 F L Pulse Rate 85 82 Respiratory Rate 14 Blood Pressure 118/72 Pulse Oximetry 97 Oxygen Delivery Method Oxygen Flow Rate 0 Oxygen Delivery Method Room Air Oxygen Flow Rate 0 Narrative Exam Narrative: unchanged from progress note Objective Labs 12/11/22 02:00 12/11/22 02:00 [facility] Medical History ADHD Aspergers' syndrome (~2010) Depression GI bleed IBS (irritable bowel syndrome) Irritable bowel syndrome (IBS) Surgical History Anesthesia H/O colonoscopy H/O endoscopy H/O neck surgery [place] teeth extracted Family History Mother Diabetes mellitus Skin cancer, basal cell Cholecystitis Grandmother Cholecystitis Stroke Grandmother Colon cancer Grandfather Diabetes mellitus Heart disease Grandfather Heart disease Myocardial infarction Social History marital status: unmarried,single number of children: 0 household members: significant other and children lives independently: Yes housing: apartment pets and animals: No education level: high school occupational status: unemployed current occupational exposures/hazards: No special velia needs: No seatbelt use: always water heater temp set < 120 deg: No (water tank incapable of being adjusted below 125.) working smoke detector in home: Yes fire extinguisher in home: Yes carbon monox detector in home: Yes firearms in home: Yes firearms unloaded and locked: No (planning to buy a safe soon) do you feel safe at home: Yes Smoking Status: Never smoker second hand exposure: Yes (MJ smoke) alcohol intake: current substance use type: marijuana during the past year weight has: increased > 10 lbs well-balanced diet: rarely or never daily servings fruits/ve-1 caffeine: No Type(s) of exercise: walking frequency: 1-2 times per week Discharge Assessment & Plan Assessment and Plan Assessment: doing well s/p lap appy, rosina, hernia repair. Plan of Treatment: home with restrictions Discharge Plan Discharge Plan Patient Disposition: Home Discharge orders & Medications Prescriptions: New oxycodone-acetaminophen 5-325 mg Tablet 2 tab PO Q4HR PRN (Reason: Pain, Severe (7-10)) Qty: 20 0RF ondansetron HCl (PF) 4 mg/2 mL Solution 4 mg IV Q4HR PRN (Reason: Nausea And Vomiting) Qty: 20 0RF Continued prenat.vits,joann,[id number] Tablet 1 tab PO DAILY Qty: 90 3RF (DME) Double Electric Breast Pump See Rx Instructions .Route .MEDSUPPLY Qty: 1 0RF Rx Instructions: Double electric breast pump with supplies labetalol 200 mg tablet 200 mg PO Q8H Follow up/Referrals: Daksha Menon MD [Physician] - (Call office to make follow-up appointment in 10-14 days postoperative) Rolo Suazo DO [Primary Care Provider] - Diet/Activity/Treatments Diet: Diet as Tolerated Skin/Wound/Dressing Care Report to your healthcare provider any signs of infection, such as:: chills, fever, increased pain, unusual drainage and unusual redness Visit Report/Discharge Packet Instructions: DI for an Appendectomy, DI for Laparoscopy Stand Alone Forms: Work Release Note, Surgery Discharge, Patient Portal/API, Stroke Signs & Symptoms Discharge Data Primary Care Provider: Suazo,Rolo T Quality VTE Deep Vein Thrombosis/Pulmonary Embolism Present on Admission: No
== END 2022-12-13 16:11 | disposition home or self-care (01) | DRG 263 ==
LOC: ED 07:51 → SSU 07:53 → AC 10:03
PROVIDERS: Emergency Medicine; Admitting Provider Surgery; Emergency Provider Emergency Medicine; PCP Family Medicine; Referring Provider Emergency Medicine; Visit Provider Surgery
PROC: 0DTJ4ZZ Resection of Appendix, Percutaneous Endoscopic Approach (ICD-10-PCS; CPT 44970; principal; 2022-12-11 14:00)
DX: K81.0 Acute cholecystitis (principal); K43.9 Ventral hernia without obstruction or gangrene; K35.80 Unspecified acute appendicitis; N83.201 Unspecified ovarian cyst, right side; Z87.891 Personal history of nicotine dependence; Z20.822 Contact with and (suspected) exposure to COVID-19; K82.8 Other specified diseases of gallbladder
CPT/HCPCS: 49591; 47562; 36415; 44970; 74177; 76705; 76830; 76856; 80053; 81003; 81015; 81025; 82962; 83690; 85025; 87635; 93975; 94640; 96365; 96375; 99222; 99284; 99285; C9803; G0378; J0330; J1100; J1170; J1885; J2270; J2405; J2543; J2704; J3010; J3410; J7613; Q9967

== ENCOUNTER 2022-12-23 09:01 | Observation (INO) | payer OTHER, MEDICAID, SELFPAY ==
[2022-12-11 11:46] VITALS: BMI 33.0
[2022-12-23] VITALS (14 sets, daily range): BP systolic 118–152; BP diastolic 67–93; PULSE 62–101; RESP 16–18; TEMP 36.3–36.4; O2SAT 90–100; BMI 39.9
[2022-12-23] MEDS: ONDANSETRON 4 MG/2 ML INJ IV ×4 (09:14→21:22)
[2022-12-23] MEDS: HYDROMORPHONE 0.5 MG INJ IV (09:14)
[2022-12-23] MEDS: SODIUM CHLORIDE 0.9% 1,000 ML 1000 ML IV ×2 (09:14→11:44)
[2022-12-23 09:33] LABS: Lactate (Lactic Acid) 1.3 mmol/L (0.7-2.1); Pregnancy Test Serum,Qual Negative (Negative)
[2022-12-23 09:55] LABS: Add Manual Diff / Slide Review NO; Basophils Absolute Auto 0 /uL (0-100); Basophils Percent Auto 0.4 % (0-2); Eosinophils Absolute Auto 100 /uL (0-450); Eosinophils Percent Auto 0.9 % (2-4); Hematocrit 40.8 % (36-46); Hemoglobin 13.7 g/dL (12.0-16.0); Lymphocytes Absolute Auto 1300 /uL (1100-4500); Lymphocytes Percent Auto 15.6 % (25-40); Mean Corpuscular HGB Conc 33.5 % (30-36); Mean Corpuscular Hemoglobin 28.2 PG (26-34); Mean Corpuscular Volume 84.1 fL (80-100); Monocytes Absolute Auto 700 /uL (0-900); Monocytes Percent Auto 8.5 % (3-14); Neutrophils Absolute Auto 6300 /uL (1500-7000); Neutrophils Percent Auto 74.6 % (50-75); Platelet Count 347 X10^3/uL (150-400); Red Blood Cell Count 4.85 X10^6/uL (4.0-5.2); Red Cell Distribution Width 15.4 % (11.6-14.8); White Blood Cell Count 8.5 X10^3/uL (4.5-11.0)
--- NOTE | 2022-12-23 09:58 | ED.ABDPAIN ---
HPI - Abdominal Pain General Chief Complaint: Abdominal Pain Stated Complaint: Surgery on , Throwing Up Feces Time Seen by Provider: 12/23/22 09:52 Source: patient Mode of arrival: Ambulatory History of Present Illness HPI narrative: Patient is a 27-year-old history of IBS recent about 6 weeks ago, surgery for cholecystectomy, appendectomy, right ovarian cyst on December 11 presents today with vomiting. She reports constant diarrhea ever since surgery she is been nauseous since surgery as well but today is when the vomiting started. She feels like she is vomiting up what looks like her stool. He is ice fever. She does have pretty significant ongoing abdominal pain. She reports a loss of 16 lb however she would also recently and . However she has had significant decreased in take Related Data Home Medications Medication Instructions Recorded Confirmed labetalol 200 mg tablet 200 mg PO Q8H 12/11/22 12/23/22 Previous Rx's Medication Instructions Recorded prenat.vits,joann,jyr-[id number] 1 tab PO DAILY #90 tabs 06/13/22 Double Electric Breast Pump #1 ea 09/27/22 ondansetron 4 mg disintegrating 4 mg PO Q6-8H PRN nausea and 12/22/22 tablet vomiting #30 tabs oxycodone-acetaminophen 5 mg-325 2 tab PO Q4HR PRN Pain, Severe 12/22/22 mg tablet (7-10) #20 tabs Allergies Allergy/AdvReac Type Severity Reaction Status Date / Time arboleda flavor Allergy Intermediate Hives Verified 12/23/22 09:10 Review of Systems Review of Systems ROS Unobtainable: All systems reviewed & are unremarkable except as noted in HPI and below Patient History Medical History ADHD Aspergers' syndrome (~2010) Depression GI bleed IBS (irritable bowel syndrome) Irritable bowel syndrome (IBS) Surgical History Anesthesia H/O colonoscopy H/O endoscopy H/O neck surgery [place] teeth extracted Family History Mother Diabetes mellitus Skin cancer, basal cell Cholecystitis Grandmother Cholecystitis Stroke Grandmother Colon cancer Grandfather Diabetes mellitus Heart disease Grandfather Heart disease Myocardial infarction Social History marital status: unmarried,single number of children: 0 household members: significant other and children lives independently: Yes housing: apartment pets and animals: No education level: high school occupational status: unemployed current occupational exposures/hazards: No special velia needs: No seatbelt use: always water heater temp set < 120 deg: No (water tank incapable of being adjusted below 125.) working smoke detector in home: Yes fire extinguisher in home: Yes carbon monox detector in home: Yes firearms in home: Yes firearms unloaded and locked: No (planning to buy a safe soon) do you feel safe at home: Yes Smoking Status: Former smoker second hand exposure: Yes (MJ smoke) alcohol intake: former substance use type: marijuana during the past year weight has: increased > 10 lbs well-balanced diet: rarely or never daily servings fruits/ve-1 caffeine: No Type(s) of exercise: walking frequency: 1-2 times per week Smoking Status: Never smoker alcohol intake frequency: holidays/special occasions only Substance Use Type: does not use Exam Initial Vital Signs Initial Vital Signs: Vital Signs Temperature 97.6 F 12/23/22 09:05 Pulse Rate 94 H 12/23/22 09:05 Respiratory Rate 16 12/23/22 09:05 Blood Pressure 152/86 H 12/23/22 09:05 Pulse Oximetry 100 12/23/22 09:05 Oxygen Delivery Method Room Air 12/23/22 09:05 GENERAL: Alert pleasant 20 appears to not feel well. And in no acute distress. HEENT: Head atraumatic,EOMI, pupils reactive, face symmetric, moist mucous membranes CARDIOVASCULAR: Regular rate and rhythm without murmurs, rubs or gallops. RESPIRATORY: Breath sounds equal bilaterally, no wheezes rales or rhonchi. ABDOMEN: Soft, mildly tender no obvious distention positive bowel sounds incision sites appear clean and dry no infectious EXTREMITIES: Normal range of motion, no clubbing or edema. Neurovascularly intact NEUROLOGICAL: Alert and oriented x4. SKIN: Warm, dry, no laceration, no petechiae, no rashes or lesions. Course Orders Ordered: ED Orders 12/23/22 09:15 Complete Blood Count AUTO DIFF Stat Comprehensive Metabolic Panel Stat Lipase Stat 12/23/22 09:16 Lactate (Lactic Acid) Stat Test Serum,Qual Stat 12/23/22 10:00 CT abdomen pelvis w con Stat 12/23/22 12:02 Urine Culture Stat Urine Microscopic Stat 12/23/22 12:34 MRCP [MR abdomen wo/w con] Stat Acetaminophen (Acetaminophen 325 Mg Tablet) 975 mg PO Q6H [facility] Last Admin: 12/23/22 16:22 Dose: Not Given Documented By: MS Enoxaparin Sodium (Enoxaparin 40 Mg/0.4 Ml Syringe) 40 mg SUBCUT DAILY [facility] Hydromorphone HCl (Hydromorphone 2 Mg Tablet) 1 mg PO Q4HR PRN PRN Reason: Breakthrough Pain Sodium Chloride (Normal Saline 0.45%) 1,000 mls @ 65 mls/hr IV CONT [facility] Last Admin: 12/23/22 16:50 Dose: 65 mls/hr Documented By: MS Labetalol HCl (Labetalol 100 Mg Tablet) 200 mg PO Q8H [facility] Last Admin: 12/23/22 16:21 Dose: Not Given Documented By: Metoclopramide HCl (Metoclopramide 10 Mg/2 Ml Inj) 5 mg IV Q6HR PRN PRN Reason: Nausea And Vomiting Naloxone HCl (Naloxone 0.4 Mg/Ml Vial) 0.2 mg IV Q2MIN PRN PRN Reason: Opiate Reversal Ondansetron HCl (Ondansetron 4 Mg/2 Ml Inj) 4 mg IV Q4HR [facility] Last Admin: 12/23/22 16:50 Dose: 4 mg Documented By: MS Oxycodone HCl (Oxycodone Ir 10 Mg Tablet) 10 mg PO Q3H PRN PRN Reason: Pain, Severe (7-10) Oxycodone HCl (Oxycodone Ir 5 Mg Tablet) 5 mg PO Q3H PRN PRN Reason: Pain, Moderate (4-6) Last Admin: 12/23/22 15:57 Dose: 5 mg Documented By: RONA Discontinued Medications Al Hydrox/Mg Hydrox/Simethicone 20 ml/ Lidocaine HCl 15 ml 0 ml PO NOW ONE Stop: 12/23/22 11:22 Last Admin: 12/23/22 11:43 Dose: 5 ml Documented By: RONA Hydromorphone HCl (Hydromorphone 0.5 Mg Inj) 0.5 mg IV NOW ONE Stop: 12/23/22 09:11 Last Admin: 12/23/22 09:14 Dose: 0.5 mg Documented By: DEBBI Sodium Chloride (Normal Saline 0.9%) 1,000 mls @ 1,000 mls/hr IV BOLUS ONE Stop: 12/23/22 10:09 Last Infusion: 12/23/22 11:50 Dose: 0 mls/hr Documented By: Admin: 12/23/22 09:14 Dose: 1,000 mls/hr Documented By: DEBBI Sodium Chloride (Normal Saline 0.9%) 1,000 mls @ 1,000 mls/hr IV BOLUS ONE Stop: 12/23/22 12:20 Last Infusion: 12/23/22 12:56 Dose: 0 mls/hr Documented By: Admin: 12/23/22 11:44 Dose: 1,000 mls/hr Documented By: RONA Ketorolac Tromethamine (Ketorolac 30 Mg/Ml Vial) 15 mg IV NOW ONE Stop: 12/23/22 12:33 Last Admin: 12/23/22 12:38 Dose: 15 mg Documented By: RONA Ondansetron HCl (Ondansetron 4 Mg/2 Ml Inj) 4 mg IV NOW PRN PRN Reason: Nausea And Vomiting Last Admin: 12/23/22 09:14 Dose: 4 mg Documented By: DEBBI Ondansetron HCl (Ondansetron 4 Mg/2 Ml Inj) 4 mg IV NOW ONE Stop: 12/23/22 12:43 Last Admin: 12/23/22 12:44 Dose: 4 mg Documented By: RONA Vital Signs Vital signs: Vital Signs - 8 hr 12/23/22 09:30 12/23/22 09:30 12/23/22 10:00 Pulse Rate 95 H Blood Pressure 143/85 H 138/93 H Pulse Oximetry 97 12/23/22 10:00 12/23/22 10:31 12/23/22 11:00 Pulse Rate 75 85 63 Blood Pressure Pulse Oximetry 97 96 95 12/23/22 11:30 12/23/22 11:47 12/23/22 11:47 Pulse Rate 69 79 Blood Pressure 135/80 Pulse Oximetry 98 98 12/23/22 12:00 12/23/22 12:00 12/23/22 12:30 Pulse Rate 69 Blood Pressure 118/68 130/67 Pulse Oximetry 97 12/23/22 12:30 Pulse Rate 62 Blood Pressure Pulse Oximetry 95 MDM - Abdominal Pain Lab Data 12/23/22 09:15 12/23/22 09:15 Labs: Lab Results 12/23/22 12/23/22 12/23/22 Range/Units 09:15 09:15 09:16 WBC 8.5 (4.5-11.0) X10^3/uL RBC 4.85 (4.0-5.2) X10^6/uL Hgb 13.7 (12.0-16.0) g/dL Hct 40.8 (36-46) % MCV 84.1 (80-100) fL MCH 28.2 (26-34) PG MCHC 33.5 (30-36) % RDW 15.4 H (11.6-14.8) % Plt Count 347 (150-400) X10^3/uL Neut % (Auto) 74.6 (50-75) % Lymph % (Auto) 15.6 L (25-40) % [place] % (Auto) 8.5 (3-14) % Eos % (Auto) 0.9 L (2-4) % Baso % (Auto) 0.4 (0-2) % Neut # (Auto) 6300 (6736-8687) /uL Lymph # (Auto) 1300 (4062-4145) /uL [place] # (Auto) 700 (0-900) /uL Eos # (Auto) 100 (0-450) /uL Baso # (Auto) 0 (0-100) /uL Sodium 141 (137-145) mmol/L Potassium 4.0 (3.4-5.1) mmol/L Chloride 103 (98-107) mmol/L Carbon Dioxide 26 (22-32) mmol/L BUN 9 (7-17) mg/dL Creatinine 0.95 (0.52-1.04) mg/dL Estimated GFR > 60 (>60) mL/min BUN/Creatinine Ratio 9.5 (6-22) Glucose 110 H (70-100) mg/dL Lactate 1.3 (0.7-2.1) mmol/L Calcium 9.2 (8.4-10.2) mg/dL Total Bilirubin 1.5 H (0.2-1.3) mg/dL AST 299 H (14-36) IU/L ALT 120 H (<35) IU/L Alkaline Phosphatase 216 H (38-126) U/L Total Protein 8.4 H (6.3-8.2) g/dL Albumin 4.6 (3.5-5.0) g/dL Globulin 3.8 (1.7-4.1) g/dL Albumin/Globulin Ratio 1.2 (1.0-2.8) Lipase 44 (23-300) U/L Serum , Qual (Negative) Urine RBC (0-5/HPF) Urine WBC (0-5/HPF) Ur Squamous Epith Cells (0-5/HPF) Urine Bacteria (None) Ur Culture Indicated? 12/23/22 12/23/22 Range/Units 09:16 12:02 WBC (4.5-11.0) X10^3/uL RBC (4.0-5.2) X10^6/uL Hgb (12.0-16.0) g/dL Hct (36-46) % MCV (80-100) fL MCH (26-34) PG MCHC (30-36) % RDW (11.6-14.8) % Plt Count (150-400) X10^3/uL Neut % (Auto) (50-75) % Lymph % (Auto) (25-40) % [place] % (Auto) (3-14) % Eos % (Auto) (2-4) % Baso % (Auto) (0-2) % Neut # (Auto) (3996-4329) /uL Lymph # (Auto) (0298-8478) /uL [place] # (Auto) (0-900) /uL Eos # (Auto) (0-450) /uL Baso # (Auto) (0-100) /uL Sodium (137-145) mmol/L Potassium (3.4-5.1) mmol/L Chloride (98-107) mmol/L Carbon Dioxide (22-32) mmol/L BUN (7-17) mg/dL Creatinine (0.52-1.04) mg/dL Estimated GFR (>60) mL/min BUN/Creatinine Ratio (6-22) Glucose (70-100) mg/dL Lactate (0.7-2.1) mmol/L Calcium (8.4-10.2) mg/dL Total Bilirubin (0.2-1.3) mg/dL AST (14-36) IU/L ALT (<35) IU/L Alkaline Phosphatase (38-126) U/L Total Protein (6.3-8.2) g/dL Albumin (3.5-5.0) g/dL Globulin (1.7-4.1) g/dL Albumin/Globulin Ratio (1.0-2.8) Lipase (23-300) U/L Serum , Qual Negative (Negative) Urine RBC 0-1/hpf (0-5/HPF) Urine WBC 0-1/hpf (0-5/HPF) Ur Squamous Epith Cells 5-10 /hpf H (0-5/HPF) Urine Bacteria Many (>30) H (None) Ur Culture Indicated? Specimen cultured Point of care testing: Point of Care Testing Test Results Negative Urine Dip Bedside Urine Glucose Negative Bedside Urine Bilirubin - Negative Bedside Urine Ketone - Negative Urine Specific [place] 1.015 Bedside Urine Occult Blood +/- Bedside Urine pH 6.0 Bedside Urine Protein - Negative Bedside Urine Urobilinogen - Negative Bedside Urine Nitrite - Negative Bedside Urine Leukocytes - Negative Esterase Imaging Data CT scan - abdomen/pelvis: Radiologist's Impression: PROCEDURE:? CT ABDOMEN PELVIS W CON ? INDICATIONS:? vomiting multiple recent surgeries ? TECHNIQUE:? After the administration of intravenous contrast, axial sections acquired from the lung bases to the pubic symphysis.? Coronal and sagittal reformats were performed.? For radiation dose reduction, the following was used:? automated exposure control, adjustment of mA and/or kV according to patient size.? ? COMPARISON:? [facility], CT, CT ABDOMEN PELVIS W CON, 12/11/2022, 5:44. ? FINDINGS: Image quality:? Excellent.? ? Lung bases:? There is a 6 mm nodule in the right upper lobe.? The lungs are otherwise clear.? Heart size is normal. ? Solid organs:? Liver: The liver has no mass or intrahepatic biliary ductal dilatation. The portal vein and hepatic veins are patent. Biliary:? There are what appear to be cholecystectomy clips in the gallbladder fossa which are new compared to 12/11/2022.? The gallbladder fossa contains fluid, likely related to recent surgery.? Pancreas: The pancreas has no mass or ductal dilatation. There is no surrounding inflammation. Spleen: Normal size. There are no masses. Adrenals: No hypertrophy or nodules. Kidneys: No obstructive calculus or hydronephrosis.? No solid mass. No cystic mass. ? Peritoneum and bowel:? The distal esophagus and stomach are normal.? The small bowel has a normal caliber and appearance. The terminal ileum is normal. The large bowel has a normal caliber and appearance.? Status post appendicectomy.? No free fluid or air.? No postoperative abscess. ? Nodes and vessels:? No retroperitoneal or mesenteric adenopathy by size criteria.? Aorta and inferior vena cava are normal in size.? ? Miscellaneous:? No abdominal wall mass or hernia. ? PELVIS:? Genitourinary:? The bladder has no wall thickening or mass. No bladder calcifications. ? Bones:? No suspicious bony lesions.? No vertebral body compression fractures.? ? IMPRESSION: 1. Postoperative changes of cholecystectomy and appendectomy.? 2. No acute abnormality of the abdomen.? ? Dictated by: Leopoldo Forte M.D. on 12/23/2022 at 9:53 ? ? MDM Narrative Medical decision making narrative: Patient 27-year-old female who recently had multiple surgeries at once presenting today with constant nausea and upper epigastric pain. CT does not show any abnormality postsurgical changes noted. Blood work does not show any leukocytosis. It does however show an elevated bilirubin of 1.5 AST is 299 ALT is 120 lipase within normal limits. Possible common bile duct stone causing her constant nausea. She is feeling better after Zofran and fluids. Dr. Ruiz us called and updated on patient in ED to see and evaluate patient herself. Recommend observation and an MRCP. She is happy for patient to go up to the floor before MRCP is done. Patient is not having any fever or sign of infection no antibiotics are given. There is no sign of bowel obstruction or other abnormality on CT. Discharge Plan Departure Patient Disposition: Admitted as Observation Clinical Impression: Abdominal pain Admit Date/Time: 12/23/22 15:17 Admit Provider: Daksha Menon
--- NOTE | 2022-12-23 10:00 | DI.CT.S_ITS ---
PROCEDURE: CT ABDOMEN PELVIS W CON INDICATIONS: vomiting multiple recent surgeries TECHNIQUE: After the administration of intravenous contrast, axial sections acquired from the lung bases to the pubic symphysis. Coronal and sagittal reformats were performed. For radiation dose reduction, the following was used: automated exposure control, adjustment of mA and/or kV according to patient size. COMPARISON: [facility], CT, CT ABDOMEN PELVIS W CON, 12/11/2022, 5:44. FINDINGS: Image quality: Excellent. Lung bases: There is a 6 mm nodule in the right upper lobe. The lungs are otherwise clear. Heart size is normal. Solid organs: Liver: The liver has no mass or intrahepatic biliary ductal dilatation. The portal vein and hepatic veins are patent. Biliary: There are what appear to be cholecystectomy clips in the gallbladder fossa which are new compared to 12/11/2022. The gallbladder fossa contains fluid, likely related to recent surgery. Pancreas: The pancreas has no mass or ductal dilatation. There is no surrounding inflammation. Spleen: Normal size. There are no masses. Adrenals: No hypertrophy or nodules. Kidneys: No obstructive calculus or hydronephrosis. No solid mass. No cystic mass. Peritoneum and bowel: The distal esophagus and stomach are normal. The small bowel has a normal caliber and appearance. The terminal ileum is normal. The large bowel has a normal caliber and appearance. Status post appendicectomy. No free fluid or air. No postoperative abscess. Nodes and vessels: No retroperitoneal or mesenteric adenopathy by size criteria. Aorta and inferior vena cava are normal in size. Miscellaneous: No abdominal wall mass or hernia. PELVIS: Genitourinary: The bladder has no wall thickening or mass. No bladder calcifications. Bones: No suspicious bony lesions. No vertebral body compression fractures. IMPRESSION: 1. Postoperative changes of cholecystectomy and appendectomy. 2. No acute abnormality of the abdomen. Dictated by: Leopoldo Forte M.D. on 12/23/2022 at 9:53 Approved by: Leopoldo Forte M.D. on 12/23/2022 at 10:06
[2022-12-23 10:02] LABS: Alanine Aminotransferase 120 IU/L (<35); Albumin 4.6 g/dL (3.5-5.0); Albumin Globulin Ratio 1.2 (1.0-2.8); Alkaline Phosphatase 216 U/L (38-126); Aspartate Aminotransferase 299 IU/L (14-36); BUN Creatinine Ratio 9.5 (6-22); Bilirubin Total 1.5 mg/dL (0.2-1.3); Blood Urea Nitrogen 9 mg/dL (7-17); Calcium 9.2 mg/dL (8.4-10.2); Carbon Dioxide 26 mmol/L (22-32); Chloride 103 mmol/L (98-107); Estimated Glomerular Filt Rate > 60 mL/min (>60); Globulin 3.8 g/dL (1.7-4.1); Glucose 110 mg/dL (70-100); Lipase 44 U/L (23-300); Sodium 141 mmol/L (137-145); Total Protein 8.4 g/dL (6.3-8.2)
[2022-12-23 10:03] LABS: HEMOLYSIS 75 (0-50)
[2022-12-23] MEDS: MAG HYDROX/ALUMINUM/SIMETH SUS 20 ML, LIDOCAINE VISCOUS 2% 15 ML PO (11:43)
[2022-12-23 12:15] LABS: Bacteria Urine Many (>30); Culture Indicated Urine Specimen Cultured; RBC Urine 0-1/HPF (0-5/HPF); Squamous Epithelial Cell Urine 5-10 /HPF (0-5/HPF); WBC Urine 0-1/HPF (0-5/HPF)
--- NOTE | 2022-12-23 12:34 | DI.MRI.S_ITS ---
PROCEDURE: MR ABDOMEN WO/W CON INDICATIONS: post op, elevated liver TECHNIQUE: Coronal HASTE, axial 2D FLASH in- and [id number]; axial breath-hold T2 FSE. Dynamic axial VIBE during the administration of contrast; post-contrast coronal VIBE or 2D FLASH with fat saturation from the hepatic dome to the iliac crests. Optional diffusion weighted imaging and ADC may be performed. COMPARISON: [facility], CT, CT ABDOMEN PELVIS W CON, 12/23/2022, 10:23. FINDINGS: Image quality: Excellent. LIVER/BILIARY: Status post cholecystectomy. The cystic duct remnant is seen. Within the gallbladder fossa there is heterogenous fluid signal with rim enhancement on post gadolinium images. The liver has no intrahepatic biliary ductal dilatation or mass. The remnant cystic duct, hepatic ducts, common bile duct, and pancreatic ducts have no dilatation or filling defects. PANCREAS: The pancreas is normal with no masses, pancreatic ductal dilatation, or inflammatory change. SPLEEN: The spleen has a normal size and has normal signal. ADRENALS: The adrenal glands are normal. KIDNEYS: Both kidneys are normal. No hydronephrosis. No solid mass. VASCULAR: The aorta has a normal caliber. The portal vein and hepatic veins are patent. BOWEL: The distal esophagus, stomach, and duodenum have a normal appearance. IMPRESSION: 1. Heterogenous fluid collection within the gallbladder fossa. Consider biloma given elevated liver enzymes. Other possibilities include seroma, postoperative fluid, or abscess. 2. No intra or extrahepatic bile duct dilatation or obstruction. Dictated by: Leopoldo Forte M.D. on 12/23/2022 at 17:47 Approved by: Leopoldo Forte M.D. on 12/23/2022 at 17:58
[2022-12-23] MEDS: KETOROLAC 30 MG/ML VIAL 15 MG IV (12:38)
--- NOTE | 2022-12-23 12:56 | PC.NURSE ---
Patient given breast pump and attachments from center.
--- NOTE | 2022-12-23 15:27 | PM.HP.1 ---
History of Present Illness History of Present Illness Date Patient Seen: 12/23/22 Chief complaint: Surgery on , Throwing Up Feces Narrative: Ms. Rodriguez is a patient well known to me. I saw her yesterday in my clinic. She was complaining of diarrhea at that time. And we had plan to check a stool sample. She presented to the ER today because she started vomiting in addition. She said that her vomit felt and tasted like stool. She is had a CT scan today that was relatively unremarkable. It does show some fluid in the gallbladder fossa but looks like a normal postoperative finding. She showed me a picture of her stool and it looks almost like steatorrhea. She is having persistent epigastric abdominal pain and nausea. She is tolerating clear liquids and is scheduled to have an MRCP at 16:00. I think that she is having too much pain and nausea to be discharged from the emergency room. Patient History Medical History ADHD Aspergers' syndrome (~2010) Depression GI bleed IBS (irritable bowel syndrome) Irritable bowel syndrome (IBS) Surgical History Anesthesia H/O colonoscopy H/O endoscopy H/O neck surgery [place] teeth extracted Family & Social History Family History Mother Diabetes mellitus Skin cancer, basal cell Cholecystitis Grandmother Cholecystitis Stroke Grandmother Colon cancer Grandfather Diabetes mellitus Heart disease Grandfather Heart disease Myocardial infarction Social History: household members significant other,children lives independently Yes Safety & Behavioral: Feels Safe in Current Yes Environment Been Physically Hurt or No Threatened By a Person Tobacco & Substance use: Smoking Status Never smoker alcohol intake current alcohol intake frequency holiday/special occasion Substance Use Type does not use Meds Home Medications and Allergies Home Medications Medication Instructions Recorded Confirmed Type prenat.vits,joann,[id number] 1 tab PO DAILY #90 tabs 06/13/22 12/22/22 Rx Double Electric Breast Pump #1 ea 09/27/22 12/22/22 Rx labetalol 200 mg tablet 200 mg PO Q8H 12/11/22 12/22/22 History ondansetron 4 mg disintegrating 4 mg PO Q6-8H PRN nausea and 12/22/22 12/22/22 Rx tablet vomiting #30 tabs oxycodone-acetaminophen 5 mg-325 2 tab PO Q4HR PRN Pain, Severe 12/22/22 12/22/22 Rx mg tablet (7-10) #20 tabs Allergies Allergy/AdvReac Type Severity Reaction Status Date / Time arboleda flavor Allergy Intermediate Hives Verified 12/23/22 09:10 Exam Vital Signs (past 8 hours): - 12/23/22 09:05 12/23/22 09:06 12/23/22 09:06 Temperature 97.6 F Pulse Rate 94 H 101 H Respiratory Rate 16 Blood Pressure 152/86 H 152/86 H Pulse Oximetry 100 98 Oxygen Delivery Method Room Air 12/23/22 09:30 12/23/22 09:30 12/23/22 10:00 Temperature Pulse Rate 95 H Respiratory Rate Blood Pressure 143/85 H 138/93 H Pulse Oximetry 97 Oxygen Delivery Method 12/23/22 10:00 12/23/22 10:31 12/23/22 11:00 Temperature Pulse Rate 75 85 63 Respiratory Rate Blood Pressure Pulse Oximetry 97 96 95 Oxygen Delivery Method 12/23/22 11:30 12/23/22 11:47 12/23/22 11:47 Temperature Pulse Rate 69 79 Respiratory Rate Blood Pressure 135/80 Pulse Oximetry 98 98 Oxygen Delivery Method 12/23/22 12:00 12/23/22 12:00 12/23/22 12:30 Temperature Pulse Rate 69 Respiratory Rate Blood Pressure 118/68 130/67 Pulse Oximetry 97 Oxygen Delivery Method 12/23/22 12:30 Temperature Pulse Rate 62 Respiratory Rate Blood Pressure Pulse Oximetry 95 Oxygen Delivery Method Oxygen Delivery Method Room Air Const General: cooperative, healthy appearing, comfortable and No acute distress Orientation: alert, awake and oriented x3 HENMT Head: normal to inspection Mouth: mucous membranes abnormal (Mucous membranes are somewhat dry) Resp Effort & Inspection: normal respiratory effort and able to speak in complete sentences Cardio Pulses: radial pulses present GI Inspection: obesity Palpation: soft and tender (Tender to moderate palpation in the epigastric region) Objective Labs 12/23/22 09:15 12/23/22 09:15 Labs: Laboratory Results - last 24 hr 12/23/22 12/23/22 12/23/22 09:15 09:15 09:16 WBC 8.5 RBC 4.85 Hgb 13.7 Hct 40.8 MCV 84.1 MCH 28.2 MCHC 33.5 RDW 15.4 H Plt Count 347 Neut % (Auto) 74.6 Lymph % (Auto) 15.6 L [place] % (Auto) 8.5 Eos % (Auto) 0.9 L Baso % (Auto) 0.4 Neut # (Auto) 6300 Lymph # (Auto) 1300 [place] # (Auto) 700 Eos # (Auto) 100 Baso # (Auto) 0 Sodium 141 Potassium 4.0 Chloride 103 Carbon Dioxide 26 BUN 9 Creatinine 0.95 Estimated GFR > 60 BUN/Creatinine Ratio 9.5 Glucose 110 H Lactate 1.3 Calcium 9.2 Total Bilirubin 1.5 H AST 299 H ALT 120 H Alkaline Phosphatase 216 H Total Protein 8.4 H Albumin 4.6 Globulin 3.8 Albumin/Globulin Ratio 1.2 Lipase 44 Serum , Qual Urine RBC Urine WBC Ur Squamous Epith Cells Urine Bacteria Ur Culture Indicated? 12/23/22 12/23/22 09:16 12:02 WBC RBC Hgb Hct MCV MCH MCHC RDW Plt Count Neut % (Auto) Lymph % (Auto) [place] % (Auto) Eos % (Auto) Baso % (Auto) Neut # (Auto) Lymph # (Auto) [place] # (Auto) Eos # (Auto) Baso # (Auto) Sodium Potassium Chloride Carbon Dioxide BUN Creatinine Estimated GFR BUN/Creatinine Ratio Glucose Lactate Calcium Total Bilirubin AST ALT Alkaline Phosphatase Total Protein Albumin Globulin Albumin/Globulin Ratio Lipase Serum , Qual Negative Urine RBC 0-1/hpf Urine WBC 0-1/hpf Ur Squamous Epith Cells 5-10 /hpf H Urine Bacteria Many (>30) H Ur Culture Indicated? Specimen cultured Assessment & Plan Assessment and plan (1) Abdominal pain: Status: Acute (2) Diarrhea following gastrointestinal surgery: Status: Acute (3) Postoperative nausea and vomiting: Status: Acute (4) Hyperbilirubinemia: Status: Acute (5) Elevated liver function tests: Status: Acute (6) Transaminitis: Status: Acute Assessment & Plan narrative: Based on her laboratory assessment showing hyperbilirubinemia and elevated alk-phos with an also uptrending transaminitis. I think further evaluation for postoperative complication is necessary. My 1st thought is a retained common bile duct stone. And so I have ordered an MRCP. Given that she is continuing to be nauseated and have epigastric pain she needs to be admitted at least for observation and treated with antiemetics IV fluids and pain medication as needed. My hope is that the MRCP will further elucidate the etiology of these LFT abnormalities and hopefully we can arrange for an ERCP or other appropriate treatment with the addition of that information. For now she can have a diet as tolerated. Time Spent With Patient Critical Care time: I spent a total of [] minutes of critical care time on this patient's care today; this time is exclusive of procedural time.
[2022-12-23] MEDS: OXYCODONE IR 5 MG TABLET PO (15:57)
--- NOTE | 2022-12-23 16:33 | PC.NURSE ---
admission note: pt brought via gurney from ED, oriented to room and call light system, connected to all monitoring equipment, bed low and locked, pt using breast pump at this time, will continue to monitor
[2022-12-23] MEDS: SODIUM CHLORIDE 0.45% 1,000 ML 65 ML IV (16:50)
[2022-12-23 19:04] LABS: COVID19 - ADMIT (NP swab/PCR) Negative (Negative)
[2022-12-23] MEDS: METOCLOPRAMIDE 10 MG/2 ML INJ 5 MG IV (19:52)
[2022-12-24 00:56] LABS: Adenovirus F 40/41 Not Detected (Not Detect); Astrovirus Not Detected (Not Detect); Campylobacter Not Detected (Not Detect); Clostridium difficile toxin AB Not Detected (Not Detect); Cryptosporidium Not Detected (Not Detect); Cyclospora cayetanensis Not Detected (Not Detect); Entamoeba histolytica Not Detected (Not Detect); Enteroaggregative E.coli Not Detected (Not Detect); Enteropathogenic E.coli Not Detected (Not Detect); Enterotoxigenic E.coli It/st Not Detected (Not Detect); Giardia lamblia Not Detected (Not Detect); Norovirus GI/GII Not Detected (Not Detect); Plesiomonsa shigelloides Not Detected (Not Detect); Rotavirus A Not Detected (Not Detect); Salmonella Not Detected (Not Detect); Sapovirus Not Detected (Not Detect); Shiga-like toxin-prod E.coli Not Detected (Not Detect); Shigella/Enteroinvasive E.coli Not Detected (Not Detect); Vibrio Not Detected (Not Detect); Vibrio cholerae Not Detected (Not Detect); Yersinia enterocolitica Not Detected (Not Detect)
[2022-12-24] MEDS: ONDANSETRON 4 MG/2 ML INJ IV ×3 (04:35→21:16)
[2022-12-24 04:39] LABS: Alanine Aminotransferase 103 IU/L (<35); Albumin 3.8 g/dL (3.5-5.0); Albumin Globulin Ratio 1.3 (1.0-2.8); Alkaline Phosphatase 173 U/L (38-126); Aspartate Aminotransferase 86 IU/L (14-36); Bilirubin Total 1.2 mg/dL (0.2-1.3); HEMOLYSIS < 15 (0-50); Total Protein 6.8 g/dL (6.3-8.2)
[2022-12-24] MEDS: OXYCODONE IR 5 MG TABLET PO ×2 (04:49→22:59)
[2022-12-24] MEDS: ACETAMINOPHEN 325 MG TABLET 975 MG PO (04:52)
[2022-12-24 07:40] VITALS: BP 129/87; PULSE 70; RESP 16; TEMP 36.4; O2SAT 97
[2022-12-24] MEDS: ENOXAPARIN 40 MG/0.4 ML SYRINGE SUBCUT (09:25)
--- NOTE | 2022-12-24 11:28 | PM.PN.1 ---
Subjective Subjective Date Patient Seen: 12/24/22 Interval history: Patient states that she is doing okay. She is still having diarrhea. And feeling very very nauseous. She is tolerating clear liquids but really not eating a lot. Epigastric abdominal pain still present Exam Vital Signs (past 8 hours): - 12/24/22 07:40 12/24/22 07:00 Temperature 97.6 F Pulse Rate 70 Respiratory Rate 16 Blood Pressure 129/87 Pulse Oximetry 97 Oxygen Delivery Method Room Air Oxygen Delivery Method Room Air Oxygen Flow Rate 0 Narrative Exam Narrative: She is awake alert oriented in no acute distress and pleasant Oral mucous membranes are moist Her wounds are clean dry and intact. She is appropriately tender around the umbilicus and a little bit of mild epigastric tenderness as well. Objective Labs 12/23/22 09:15 12/23/22 09:15 Labs: Laboratory Results - last 24 hr 12/23/22 12/23/22 12/23/22 12:02 18:03 22:35 Total Bilirubin Conjugated Bilirubin Unconjugated Bilirubin AST ALT Alkaline Phosphatase Total Protein Albumin Globulin Albumin/Globulin Ratio Urine RBC 0-1/hpf Urine WBC 0-1/hpf Ur Squamous Epith Cells 5-10 /hpf H Urine Bacteria Many (>30) H Ur Culture Indicated? Specimen cultured Stl C. cayetanensis PCR Not detected Stool Rotavirus (PCR) Not detected Stool Adenovirus (PCR) Not detected Stool Astrovirus (PCR) Not detected Stool Cryptosporidium PCR Not detected Stl E.coli Shiga Tox PCR Not detected St Sh/Enteroin Ecoli PCR Not detected Stool E coli O157 PCR Not Reportable Stl Enterotoxigenic E PCR Not detected Stool EPEC (PCR) Not detected Stl E. histolytica PCR Not detected Stool Giardia Lamblia PCR Not detected Stool Sapovirus (PCR) Not detected Stl P. shigelloides PCR Not detected St Y.enterocolitica PCR Not detected Stool Vibrio (PCR) Not detected Stl Vibrio cholerae PCR Not detected Stl Enteroaggr Ecoli PCR Not detected Stl Norovirus GI/GII PCR Not detected Campylobacter (PCR) Not detected C. difficile Tox (PCR) Not detected SARS-CoV-2 (PCR) Negative Salmonella (PCR) Not detected 12/24/22 03:48 Total Bilirubin 1.2 Conjugated Bilirubin 0.0 Unconjugated Bilirubin 1.0 AST 86 H ALT 103 H Alkaline Phosphatase 173 H Total Protein 6.8 Albumin 3.8 Globulin 3.0 Albumin/Globulin Ratio 1.3 Urine RBC Urine WBC Ur Squamous Epith Cells Urine Bacteria Ur Culture Indicated? Stl C. cayetanensis PCR Stool Rotavirus (PCR) Stool Adenovirus (PCR) Stool Astrovirus (PCR) Stool Cryptosporidium PCR Stl E.coli Shiga Tox PCR St Sh/Enteroin Ecoli PCR Stool E coli O157 PCR Stl Enterotoxigenic E PCR Stool EPEC (PCR) Stl E. histolytica PCR Stool Giardia Lamblia PCR Stool Sapovirus (PCR) Stl P. shigelloides PCR St Y.enterocolitica PCR Stool Vibrio (PCR) Stl Vibrio cholerae PCR Stl Enteroaggr Ecoli PCR Stl Norovirus GI/GII PCR Campylobacter (PCR) C. difficile Tox (PCR) SARS-CoV-2 (PCR) Salmonella (PCR) [facility] Medical History ADHD Aspergers' syndrome (~2010) Depression GI bleed IBS (irritable bowel syndrome) Irritable bowel syndrome (IBS) Surgical History Anesthesia H/O colonoscopy H/O endoscopy H/O neck surgery [place] teeth extracted Family History Mother Diabetes mellitus Skin cancer, basal cell Cholecystitis Grandmother Cholecystitis Stroke Grandmother Colon cancer Grandfather Diabetes mellitus Heart disease Grandfather Heart disease Myocardial infarction Social History marital status: unmarried,single number of children: 0 household members: significant other and children lives independently: Yes housing: apartment pets and animals: No education level: high school occupational status: unemployed current occupational exposures/hazards: No special velia needs: No seatbelt use: always water heater temp set < 120 deg: No (water tank incapable of being adjusted below 125.) working smoke detector in home: Yes fire extinguisher in home: Yes carbon monox detector in home: Yes firearms in home: Yes firearms unloaded and locked: No (planning to buy a safe soon) do you feel safe at home: Yes Smoking Status: Former smoker second hand exposure: Yes (MJ smoke) alcohol intake: former substance use type: marijuana during the past year weight has: increased > 10 lbs well-balanced diet: rarely or never daily servings fruits/ve-1 caffeine: No Type(s) of exercise: walking frequency: 1-2 times per week Assessment & Plan Assessment and plan (1) Transaminitis: Status: Acute (2) Elevated liver function tests: Status: Acute (3) Hyperbilirubinemia: Status: Acute (4) Postoperative nausea and vomiting: Status: Acute (5) Abdominal pain: Status: Acute (6) Diarrhea following gastrointestinal surgery: Status: Acute Assessment & Plan narrative: MRCP done yesterday shows possible biloma. I discussed with Dr. Cano of Gastroenterology at [facility] in [place] an ERCP for her. He agrees that this would likely be helpful and has accepted the transfer. Sounds like their next available ERCP will be tomorrow in the evening but possibly on Sunday. I think since she is not taking a lot by mouth and still having diarrhea with deranged liver function testing I do not think she meets the criteria for for discharge at this time and we will keep her until she can get her ERCP. Ms. Rodriguez understands this plan I answered her questions and she would like to proceed. Time Spent With Patient Critical Care time: I spent a total of [] minutes of critical care time on this patient's care today; this time is exclusive of procedural time. Quality VTE Deep Vein Thrombosis/Pulmonary Embolism Present on Admission: No
[2022-12-24] MEDS: CHOLESTYRAMINE/ASPARTAME 4 GM PACK PO (11:43)
--- NOTE | 2022-12-24 12:55 | CM.DANOTE ---
Initial Discharge Planning: Case reviewed, met with patient. Introduced self and role. Payer: [employer] and Medicaid PCP: Rolo Suazo 27 year old female admitted yesterday for N/V, abdominal pain and diarrhea since surgery with a 16 lb weight loss. She is s/p on 11/10/22 and s/p appy, choley, ovarian cyst removal and hernia repair done on 12/11/22, per patient. Patient lives with her boyfriend, baby Jelly and her [id number] in a [facility] in [place]. Patient using breast pump here. Family is caring for baby. Per Dr Menon and notes, patient will go to [facility] in [facility] tomorrow or possibly Sunday for an ERCP. She wishes to return home upon discharge. Plan: When medically cleared, return home to care of boyfriend and mother in law, her mother may be coming as well. [facility] Discharge Planning/Care Management CM Discharge Assessment Start: 12/24/22 12:50 Freq: Status: Active Protocol: Document 12/24/22 12:50 (Rec: 12/24/22 12:55 [id number]) Discharge Planning Assessment Assigned Lubricating Specialist Nadege Donald RN, DCP Advance Directives? No History Provided By Patient,Medical Record Prior Living Arrangements Apartment/Condo Comment [facility]. Household Members significant other,family, children Comment Lives with her boyfriend, nehemias Reaves born 11/10/22, and Mother in law. Type of transporation used prior to Drives own vehicle admit Independent with ADL's Yes Is patient alert and oriented? Yes Caregiver for Another Yes: 6 week old Barriers to Discharge No Discharge Plan Home Transportation Arrangement [facility] will provide transport Referrals Initiated None needed Additional Comment To [facility] tomorrow for ERCP Review Status In Process Next Review Type Continued Stay Review
[2022-12-24 20:12] VITALS: BP 140/76; PULSE 77; RESP 16; TEMP 36.2; O2SAT 97
[2022-12-24] MEDS: SODIUM CHLORIDE 0.9% FLUSH 10 ML IV (21:16)
[2022-12-25 04:49] LABS: INR 1.2 (0.9-1.3); Prothrombin Time 14.2 SECONDS (10.1-12.7)
[2022-12-25 05:00] LABS: Alanine Aminotransferase 83 IU/L (<35); Alkaline Phosphatase 166 U/L (38-126); Aspartate Aminotransferase 50 IU/L (14-36); Bilirubin Total 1.2 mg/dL (0.2-1.3); HEMOLYSIS < 15 (0-50)
[2022-12-25 05:01] LABS: Albumin 4.1 g/dL (3.5-5.0); Albumin Globulin Ratio 1.4 (1.0-2.8); Total Protein 7.1 g/dL (6.3-8.2)
[2022-12-25 07:50] VITALS: BP 126/76; PULSE 70; RESP 16; TEMP 36.4; O2SAT 98
--- NOTE | 2022-12-25 08:47 | PM.PN.1 ---
Subjective Subjective Date Patient Seen: 12/25/22 Time Patient Seen: 08:47 Interval history: Feeling about the same as yesterday. She is on the schedule for a transfer to [place] for an ERCP today. Exam Vital Signs (past 8 hours): Oxygen Delivery Method Room Air Oxygen Flow Rate 0 Const General: No in distress Objective Labs 12/23/22 09:15 12/23/22 09:15 Labs: Laboratory Results - last 24 hr 12/25/22 12/25/22 03:58 03:58 PT 14.2 H INR 1.2 Total Bilirubin 1.2 Conjugated Bilirubin 0.0 Unconjugated Bilirubin 1.0 AST 50 H ALT 83 H Alkaline Phosphatase 166 H Total Protein 7.1 Albumin 4.1 Globulin 3.0 Albumin/Globulin Ratio 1.4 PFSH Medical History ADHD Aspergers' syndrome (~2010) Depression GI bleed IBS (irritable bowel syndrome) Irritable bowel syndrome (IBS) Surgical History Anesthesia H/O colonoscopy H/O endoscopy H/O neck surgery [place] teeth extracted Family History Mother Diabetes mellitus Skin cancer, basal cell Cholecystitis Grandmother Cholecystitis Stroke Grandmother Colon cancer Grandfather Diabetes mellitus Heart disease Grandfather Heart disease Myocardial infarction Social History marital status: unmarried,single number of children: 0 household members: significant other, family and children lives independently: Yes housing: apartment pets and animals: No education level: high school occupational status: unemployed current occupational exposures/hazards: No special velia needs: No seatbelt use: always water heater temp set < 120 deg: No (water tank incapable of being adjusted below 125.) working smoke detector in home: Yes fire extinguisher in home: Yes carbon monox detector in home: Yes firearms in home: Yes firearms unloaded and locked: No (planning to buy a safe soon) do you feel safe at home: Yes Smoking Status: Former smoker second hand exposure: Yes (MJ smoke) alcohol intake: former substance use type: marijuana during the past year weight has: increased > 10 lbs well-balanced diet: rarely or never daily servings fruits/ve-1 caffeine: No Type(s) of exercise: walking frequency: 1-2 times per week Assessment & Plan Assessment and plan (1) Transaminitis: Status: Acute Plan Plan is for transfer to [facility] for an ERCP today. Time Spent With Patient Critical Care time: I spent a total of [] minutes of critical care time on this patient's care today; this time is exclusive of procedural time. Quality VTE Deep Vein Thrombosis/Pulmonary Embolism Present on Admission: No
[2022-12-25] MEDS: SODIUM CHLORIDE 0.9% FLUSH 10 ML IV (09:15)
[2022-12-25] MEDS: ACETAMINOPHEN 325 MG TABLET 975 MG PO ×2 (09:15→18:52)
[2022-12-25] MEDS: OXYCODONE IR 5 MG TABLET PO ×3 (09:15→18:52)
[2022-12-25] MEDS: ONDANSETRON 4 MG/2 ML INJ IV ×2 (10:38→16:34)
--- NOTE | 2022-12-25 16:49 | DIET.CONS2 ---
Dietary Inpatient Consultation Note Admission Date: 12/23/2022 15:17 27 yo F admitted for nausea/vomiting. RD consulted for N/V and recent weight loss. Was not able to meet with pt. Per nurse, pt is still nauseous, however, is no longer vomiting.?Nausea managed c IV Zofran. Pt consumed 100% dinner tray last evening. Recent 16 lbs wt loss is likely due to as pt is post-partem . Pt is scheduled for a transfer to [facility] for ERCP. Diagnosis: no diagnosis at this time Intervention: because pt is?tolerating clears, will send clear Ensure with meal?trays to support nutrition while hospitalized.? Diet: 12/25/22 Breakfast Clear Liquid Diet Diet Modifications: Nutrition Percent Meal Consumed 100% 12/24/22 18:00 Percent Meal Consumed 0% 12/24/22 09:46 Electronically Signed by: Tanya Molina 12/25/22 16:49 Clinical Dietitian [address] [id number]
[2022-12-25 20:00] VITALS: BP 121/85; PULSE 84; RESP 18; TEMP 36.3; O2SAT 98
[2022-12-26] MEDS: OXYCODONE IR 5 MG TABLET PO ×2 (06:52→10:05)
[2022-12-26] MEDS: ONDANSETRON 4 MG/2 ML INJ IV (06:53)
[2022-12-26] MEDS: ENOXAPARIN 40 MG/0.4 ML SYRINGE SUBCUT (08:45)
[2022-12-26] MEDS: SODIUM CHLORIDE 0.45% 1,000 ML 65 ML IV (08:45)
[2022-12-26] MEDS: SODIUM CHLORIDE 0.9% FLUSH 10 ML IV (08:51)
--- NOTE | 2022-12-26 08:55 | DI.NM.S_ITS ---
PROCEDURE: NM HIDA NO EJECTION FRACTION RADIOPHARMACEUTICAL: 5.3 mCi Tc-99m mebrofenin IV. INDICATIONS: bile leak? TECHNIQUE: Following intravenous administration of Tc-99m mebrofenin, sequential anterior abdominal images were obtained through at least 60 minutes. COMPARISON: None. FINDINGS: There is normal tracer uptake and excretion by the liver. There is normal visualization of intrahepatic ducts and common bile duct. There is normal tracer excretion into duodenum. No definite radiotracer uptake in the gallbladder fossa. Radiotracer is seen within the stomach. IMPRESSION: No definite radiotracer uptake in the gallbladder fossa to suggest biloma at this time. The collection within the gallbladder fossa is favored to represent a postoperative hematoma. Biliary reflux into the stomach. Dictated by: Levi Rodriguez M.D. on 12/26/2022 at 13:19 Approved by: Levi Rodriguez M.D. on 12/26/2022 at 13:24
[2022-12-26 10:00] VITALS: BP 133/79; PULSE 71; RESP 18; TEMP 36.6; O2SAT 97
--- NOTE | 2022-12-26 11:40 | PC.NURSE ---
Addendum entered by Diana Riley R.N. 12/26/22 18:33: I agree with all of the Nursing care and documentation by Dyana Vinson- Diana Riley RN Addendum entered by Dyana Vinson R.N. 12/26/22 14:23: Patient back in room at 1250. Iv fluids restarted. Original Note: Day shift: patient saline locked and taken by radiology for HIDA scan at 1130.
--- NOTE | 2022-12-26 12:25 | PM.PN.1 ---
Subjective Subjective Interval history: This morning the patient is tearful. She is still having epigastric pain and right lower quadrant pain, is nauseated and continues to have diarrhea. She has not taken a dose of Reglan. She also did try the cholestyramine but because of the orange powder formulation she said that she could not tolerate it. She is still feeling extremely nauseous and that made it worse. Exam Vital Signs (past 8 hours): - 12/26/22 10:00 Temperature 97.9 F Pulse Rate 71 Respiratory Rate 18 Blood Pressure 133/79 Pulse Oximetry 97 Oxygen Flow Rate 0 Oxygen Delivery Method Room Air Oxygen Flow Rate 0 Narrative Exam Narrative: Patient is awake alert she is seated at the edge of the bed. She appears healthy and no acute distress The abdomen is mildly tender in the epigastric and right lower quadrant. No peritoneal signs. Wounds are clean dry and intact. Objective Labs 12/23/22 09:15 12/23/22 09:15 [facility] Medical History ADHD Aspergers' syndrome (~2010) Depression GI bleed IBS (irritable bowel syndrome) Irritable bowel syndrome (IBS) Surgical History Anesthesia H/O colonoscopy H/O endoscopy H/O neck surgery [place] teeth extracted Family History Mother Diabetes mellitus Skin cancer, basal cell Cholecystitis Grandmother Cholecystitis Stroke Grandmother Colon cancer Grandfather Diabetes mellitus Heart disease Grandfather Heart disease Myocardial infarction Social History marital status: unmarried,single number of children: 0 household members: significant other, family and children lives independently: Yes housing: apartment pets and animals: No education level: high school occupational status: unemployed current occupational exposures/hazards: No special velia needs: No seatbelt use: always water heater temp set < 120 deg: No (water tank incapable of being adjusted below 125.) working smoke detector in home: Yes fire extinguisher in home: Yes carbon monox detector in home: Yes firearms in home: Yes firearms unloaded and locked: No (planning to buy a safe soon) do you feel safe at home: Yes Smoking Status: Former smoker second hand exposure: Yes (MJ smoke) alcohol intake: former substance use type: marijuana during the past year weight has: increased > 10 lbs well-balanced diet: rarely or never daily servings fruits/ve-1 caffeine: No Type(s) of exercise: walking frequency: 1-2 times per week Assessment & Plan Assessment and plan (1) Transaminitis: Status: Acute (2) Elevated liver function tests: Status: Acute (3) Hyperbilirubinemia: Status: Acute (4) Postoperative nausea and vomiting: Status: Acute (5) Abdominal pain: Status: Acute (6) Diarrhea following gastrointestinal surgery: Status: Acute (7) Postoperative abdominal pain: Status: Acute Assessment & Plan narrative: In last few days her liver functions have been trending towards normalization. Her total bilirubin is within normal limits. I have discussed her case with apparel designer both at [facility] in [place] and at [facility]. At this point given her improvement I think we should proceed with a HIDA scan. If this scan shows a leak then we know for sure she will be benefitted by an ERCP. If this scan is normal perhaps if we can control her nausea and pain medically then she may improve with time. HIDA scan to be done today and will update [facility] as needed. Currently [facility] has no beds and so it does not appear that ERCP could be done today. We maybe able to transfer to [facility] upon results of HIDA scan. Will continue to follow this case was discussed with the nursing instant powder supervisor the bedside nurse and the patient understands the situation as well. I have encouraged Dulce to try some Reglan for nausea and I will contact the inpatient pharmacy to see if there is a formulation of cholestyramine that is not in an orange powder. Time Spent With Patient Critical Care time: I spent a total of [] minutes of critical care time on this patient's care today; this time is exclusive of procedural time. Quality VTE Deep Vein Thrombosis/Pulmonary Embolism Present on Admission: No
[2022-12-26] MEDS: COLESEVELAM 625 MG TABLET PO ×2 (12:51→18:03)
[2022-12-26] MEDS: METOCLOPRAMIDE 10 MG/2 ML INJ 5 MG IV ×2 (12:51→17:51)
--- NOTE | 2022-12-26 18:16 | PM.DS.1 ---
History of Present Illness History of Present Illness Chief complaint: Surgery on , Throwing Up Feces Narrative: Ms. Rodriguez is a patient well known to me. I saw her yesterday in my clinic. She was complaining of diarrhea at that time. And we had plan to check a stool sample. She presented to the ER today because she started vomiting in addition. She said that her vomit felt and tasted like stool. She is had a CT scan today that was relatively unremarkable. It does show some fluid in the gallbladder fossa but looks like a normal postoperative finding. She showed me a picture of her stool and it looks almost like steatorrhea. She is having persistent epigastric abdominal pain and nausea. She is tolerating clear liquids and is scheduled to have an MRCP at 16:00. I think that she is having too much pain and nausea to be discharged from the emergency room. Discharge Providers Provider Date of admission: 12/26/22 15:11 Discharge Date: 12/26/22 Primary care physician: Rolo Suazo DO Consults: 12/23/22 16:07 Consult to Dietitian, Adult Routine Comment: Reason For Exam: nausea and vomiting Discharge provider: Daksha Menon MD Summary Hospital Course Discharge Diagnosis: Post cholecystectomy syndrome. Transient hyperbilirubinemia, transaminitis, improved. Unknown etiology Hospital Course: Dulce Rodriguez presented to the emergency room with severe nausea and vomiting. Been having quite liquidy strange looking diarrhea for several weeks. She also complained of epigastric abdominal pain. Her workup revealed total bilirubin 1.5, alk-phos of 216, AST and ALT of 299 and 120 respectively. She did have a history of being about 6 weeks and had preeclampsia. She had been treated with labetalol but at the time of presentation she was no longer taking it. In addition her liver functions had been almost normal prior to her cholecystectomy 2 weeks ago. She had a CT scan in the emergency room that showed fluid collection in the gallbladder fossa. I then admitted her because she was vomiting and not tolerating regular food. She needed IV fluids and IV antiemetics. Workup continued with an MRCP this study did not show any common bile duct stone but again redemonstrated fluid in the gallbladder fossa. The favored diagnosis was a biloma. I then called [facility] and [place] and discussed the case with their dropper tank storage on-call. He had recommended proceeding with an ERCP. We worked with the transfer centers of that hospital to arrange this. On her 2nd hospital day I also discussed the case with the dropper tank storage at [facility]. This dropper tank storage recommended a HIDA scan to look for a leak in the meanwhile. In addition on her 2nd hospital day her liver functions went down to within the normal range of 1.2 for the bilirubin, which change the index of suspicion for a leak. The HIDA scan was performed on her 3rd hospital day and did not show any extravasation of bile into the fluid collection. Bile did arrive in the duodenum and there was some reflux of this into the stomach but otherwise the HIDA exam was unremarkable. Again discussing with gastroenterologists the finding of this study and it was suggested that the reflux could be caused by anything that is affecting the motility of her intestines, constipation being the 1st diagnosis that was suggested. However given that she is been having persistent diarrhea I do not think that is contributing in this case however I did based on this input try some Reglan for nausea. On her 4th hospital day I think the combination of Reglan and cholestyramine given with meals has made a difference in her symptoms. She has a new baby at home and is really motivated for discharge and she will have close follow-up. Therefore she was discharged in the evening after tolerating a meal of regular food. Status at Discharge Cognitive/behavioral status at discharge: at baseline, oriented Functional status at discharge: independent ambulation Overall status at discharge: patient is progressing back to baseline Time Spent with Patient Time spent: Less than 30 minutes Exam Vital Signs (past 8 hours): Oxygen Delivery Method Room Air Oxygen Flow Rate 0 Objective Labs 12/23/22 09:15 12/23/22 09:15 [facility] Medical History ADHD Aspergers' syndrome (~2010) Depression GI bleed IBS (irritable bowel syndrome) Irritable bowel syndrome (IBS) Surgical History Anesthesia H/O colonoscopy H/O endoscopy H/O neck surgery Delaplane teeth extracted Family History Mother Diabetes mellitus Skin cancer, basal cell Cholecystitis Grandmother Cholecystitis Stroke Grandmother Colon cancer Grandfather Diabetes mellitus Heart disease Grandfather Heart disease Myocardial infarction Social History marital status: unmarried,single number of children: 0 household members: significant other, family and children lives independently: Yes housing: apartment pets and animals: No education level: high school occupational status: unemployed current occupational exposures/hazards: No special velia needs: No seatbelt use: always water heater temp set < 120 deg: No (water tank incapable of being adjusted below 125.) working smoke detector in home: Yes fire extinguisher in home: Yes carbon monox detector in home: Yes firearms in home: Yes firearms unloaded and locked: No (planning to buy a safe soon) do you feel safe at home: Yes Smoking Status: Former smoker second hand exposure: Yes (MJ smoke) alcohol intake: former substance use type: marijuana during the past year weight has: increased > 10 lbs well-balanced diet: rarely or never daily servings fruits/ve-1 caffeine: No Type(s) of exercise: walking frequency: 1-2 times per week Discharge Assessment & Plan Assessment and Plan Assessment: Post cholecystectomy syndrome with liver function abnormalities which have now almost normalized of unknown etiology. Personally I do think she had a small leak that was sealed off by the time the HIDA was performed, otherwise I do not know how to explain her laboratory values. However if they are normal now and all the studies are not showing anything there is nothing to be done at this time further with regard to procedures. Plan of Treatment: I do hope that in time and with treatment with cholestyramine and Reglan her body will adjust and heal. She will continue to have close follow-up through my office. Discharge Plan Discharge Plan Patient Disposition: Home Discharge orders & Medications Prescriptions: New colestipol 1 gram tablet 1 g PO ACHS Qty: 60 4RF metoclopramide HCl 5 mg Tablet 5 mg PO ACHS Qty: 60 4RF Continued prenat.vits,joann,kel-[id number] Tablet 1 tab PO DAILY Qty: 90 3RF ondansetron 4 mg tablet,disintegrating 4 mg PO Q6-8H PRN (Reason: nausea and vomiting) Qty: 30 0RF oxycodone-acetaminophen 5-325 mg tablet 2 tab PO Q4HR PRN (Reason: Pain, Severe (7-10)) Qty: 20 0RF No Action (DME) Double Electric Breast Pump See Rx Instructions .Route .MEDSUPPLY Qty: 1 0RF Rx Instructions: Double electric breast pump with supplies Follow up/Referrals: Daksha Menon MD [Physician] - (call me tomorrow to let me know how you are doing. We can schedule an appointment for a check up (can be by phone if you prefer) on Sunday this week or Sunday next. ) Rolo Suazo, DO [Primary Care Provider] - Diet/Activity/Treatments Diet: Diet as Tolerated and Low-fat Diet comment: low fat Visit Report/Discharge Packet Instructions: Fat-Restricted Diet Stand Alone Forms: Patient Portal/API, Stroke Signs & Symptoms Discharge Data Primary Care Provider: Rolo Suazo Quality VTE Deep Vein Thrombosis/Pulmonary Embolism Present on Admission: No
--- NOTE | 2022-12-26 19:07 | PC.NURSE ---
Discharge note: IV d/c'd, paperwork signed, education provided. Patient wheeled via WC to private vehicle with family member at 1900.
== END 2022-12-26 19:00 | disposition home or self-care (01) ==
LOC: ED 15:13 → AC 15:17 → ICU 16:00
PROVIDERS: Admitting Provider Surgery; Emergency Provider Emergency Medicine; PCP Family Medicine; Visit Provider Surgery
DX: K91.5 Postcholecystectomy syndrome (principal); R11.2 Nausea with vomiting, unspecified; R74.01 Elevation of levels of liver transaminase levels; E80.6 Other disorders of bilirubin metabolism; Z20.822 Contact with and (suspected) exposure to COVID-19; Z87.891 Personal history of nicotine dependence
CPT/HCPCS: 36415; 74177; 74183; 78226; 80053; 80076; 81003; 81015; 81025; 83605; 83690; 84703; 85025; 85610; 87086; 87507; 87635; 96374; 96375; 96376; 99221; 99231; 99238; 99284; A9537; C9803; G0378; A9579; J1170; J1650; J1885; J2405; J2765; J7050; Q9967

== ENCOUNTER → 2023-01-05 14:34 | Outpatient (CLI) | payer OTHER, MEDICAID, SELFPAY ==
[2022-12-23 16:00] VITALS: BMI 39.9
[2023-01-05 15:26] LABS: Add Manual Diff / Slide Review NO; Basophils Absolute Auto 0 /uL (0-100); Basophils Percent Auto 0.5 % (0-2); Eosinophils Absolute Auto 200 /uL (0-450); Eosinophils Percent Auto 2.9 % (2-4); Hematocrit 38.2 % (36-46); Hemoglobin 12.8 g/dL (12.0-16.0); Lymphocytes Absolute Auto 1800 /uL (1100-4500); Mean Corpuscular HGB Conc 33.5 % (30-36); Mean Corpuscular Hemoglobin 28.3 PG (26-34); Mean Corpuscular Volume 84.4 fL (80-100); Monocytes Absolute Auto 700 /uL (0-900); Monocytes Percent Auto 10.3 % (3-14); Neutrophils Absolute Auto 4300 /uL (1500-7000); Neutrophils Percent Auto 61.3 % (50-75); Platelet Count 277 X10^3/uL (150-400); Red Blood Cell Count 4.52 X10^6/uL (4.0-5.2); Red Cell Distribution Width 15.4 % (11.6-14.8); White Blood Cell Count 7.1 X10^3/uL (4.5-11.0)
[2023-01-05 15:27] LABS: Bilirubin Urine UA NEGATIVE (NEGATIVE); Color Urine UA YELLOW; Glucose Urine UA NEGATIVE (Negative); Ketones Urine UA NEGATIVE (NEGATIVE); Leukocyte Esterase Urine UA NEGATIVE (NEGATIVE); Nitrite Urine UA POSITIVE (Negative); Occult Blood Urine UA 3+ (Negative); Protein Urine UA 2+ (Negative); Specific Gravity Urine UA >=1.030 (1.000-1.035); Urobilinogen Urine UA 0.2 E.U./dL (0.2)
[2023-01-05 15:46] LABS: Appearance Urine UA SL CLOUDY; pH Urine UA 5.5 (4.5-8.0)
[2023-01-05 15:48] LABS: Amorphous Sediment Urine 1+; Bacteria Urine Many (>30); Culture Indicated Urine Specimen Cultured; Mucus Urine 1+ (Negative); RBC Urine 30-100/HPF (0-5/HPF); Squamous Epithelial Cell Urine 1-5 /HPF (0-5/HPF); WBC Urine 5-10/HPF (0-5/HPF)
[2023-01-05 16:08] LABS: Alanine Aminotransferase 43 IU/L (<35); Albumin 4.3 g/dL (3.5-5.0); Albumin Globulin Ratio 1.5 (1.0-2.8); Alkaline Phosphatase 123 U/L (38-126); Aspartate Aminotransferase 37 IU/L (14-36); BUN Creatinine Ratio 11.6 (6-22); Blood Urea Nitrogen 10 mg/dL (7-17); Calcium 8.9 mg/dL (8.4-10.2); Carbon Dioxide 27 mmol/L (22-32); Chloride 104 mmol/L (98-107); Estimated Glomerular Filt Rate > 60 mL/min (>60); Globulin 2.8 g/dL (1.7-4.1); Glucose 89 mg/dL (70-100); HEMOLYSIS < 15 (0-50); Potassium 4.2 mmol/L (3.4-5.1); Sodium 141 mmol/L (137-145); Total Protein 7.1 g/dL (6.3-8.2)
== END ==
PROVIDERS: PCP Family Medicine; Referring Provider Family Medicine; Visit Provider Family Medicine
DX: R10.84 Generalized abdominal pain (principal); R30.0 Dysuria; R19.7 Diarrhea, unspecified; G89.18 Other acute postprocedural pain
CPT/HCPCS: 36415; 80053; 81001; 85025; 87077; 87086; 87186; 99213

== ENCOUNTER 2023-03-23 08:34 | Day surgery (SDC) | payer OTHER, MEDICAID, SELFPAY ==
[2022-12-23 16:00] VITALS: BMI 39.9
[2023-03-15 11:57] VITALS: BMI 30.9
[2023-03-23 09:06] VITALS: BP 139/78; PULSE 71; RESP 19; TEMP 36.1; O2SAT 99; BMI 30.9
[2023-03-23] MEDS: LACTATED RINGERS 1,000 ML 42 ML IV (09:20)
--- NOTE | 2023-03-23 10:14 | PM.PREOP ---
Pre-operative Note COVID-19 COVID-19 status: Not tested Criteria for continued procedure: Non-surgical alternatives not available or appropriate per current SOC Interval Note History & Physical reviewed/Exam performed by Physician: Yes Changes to H&P: No
--- NOTE | 2023-03-23 10:34 | SUR.OPER ---
Lithotomy on padded OR bed, head on pillow, arms secured on padded arm boards at <90 degrees abduction. Legs secured in padded yellow fins stirrups.
[2023-03-23] MEDS: SILVER NITRATE STICK 2 EACH TOP (10:43)
--- NOTE | 2023-03-23 10:49 | PM.GYNOP.1 ---
Operative Date/Time/Diagnoses Date of procedure: 03/23/23 Time of procedure: 10:15 Pre-op diagnosis: Cervical stenosis Encounter for IUD insertion (Paragard) Post-op diagnosis: same Procedure & Clinicians Procedure: Procedures Operation Date: 03/23/23 10:30 Actual Procedure Side Surgeon p Cervical Dilation & insertion of paragard IUD Chrsitian Aguayo MD Indications: Dulce is a 27-year-old , LMP 02/22/2023 who is scheduled for insertion of a ParaGard IUD in the [facility] due to the fact that she has significant cervical stenosis and cervical dilation could not be performed in office due to extreme discomfort.? Patient presents today for her scheduled surgery. Surgeon: Christian Aguayo Anesthesia Type: General Operative Notes Findings: Cervical stenosis requiring manual dilation for insertion of Paragard IUD Closure Type: not applicable Specimen(s): none Estimated blood loss (mL): 5 Blood products transfused: none Procedure in detail: With the patient under satisfactory general anesthesia in the modified dorsal lithotomy position, the vagina and perineum were prepped and draped in the usual manner for cervical dilation and IUD insertion. A pre-surgical safety time-out was then taken in accordance with [facility] protocols. A bivalve speculum was then inserted in the vagina and the cervix easily visualized. Marked stenosis was noted. The anterior lip of the cervix was grasped with a single-tooth tenaculum and using Hegar dilators, the endocervical canal was gradually dilated to the point where insertion of ParaGard IUD was possible. The ParaGard insertion device was then introduced through the endocervical canal into the uppermost portion of the endometrial cavity where the ParaGard IUD was released in the usual manner. The insertion device was then removed from the uterine cavity and the strings were trimmed to 3 cm. The tenaculum was removed from the anterior lip of the cervix and silver nitrate was applied to tenaculum puncture sites which had a slight amount of bleeding. Once hemostasis was assured, the speculum was removed from the vagina and the procedure terminated. Patient was then awakened and transferred to PACU for a period of observation and recovery after having tolerated the procedure well. Complications: none Post-operative Condition: stable Disposition: PACU Plan for aftercare: Routine postoperative care with follow-up planned for 2 weeks postop.
[2023-03-23 10:52] VITALS: BP 131/70; PULSE 69; RESP 10; TEMP 36.8; O2SAT 94
[2023-03-23 10:56] VITALS: BP 133/79; PULSE 68; RESP 11; O2SAT 93
[2023-03-23 11:01] VITALS: BP 120/73; PULSE 75; RESP 11; O2SAT 97
[2023-03-23 11:07] VITALS: BP 118/71; PULSE 71; RESP 11; O2SAT 97
== END 2023-03-23 11:24 | disposition home or self-care (01) ==
PROVIDERS: PCP Family Medicine; Referring Provider Obstetrics & Gynecology; Visit Provider Obstetrics & Gynecology
PROC: (CPT 58120; principal; 2023-03-23 10:30)
DX: N88.2 Stricture and stenosis of cervix uteri (principal); Z30.430 Encounter for insertion of intrauterine contraceptive device
CPT/HCPCS: 58300; J1100; J1885; J2405; J2704; J3010; J7300

== ENCOUNTER → 2023-04-11 07:41 | Outpatient (CLI) | payer OTHER, MEDICAID, SELFPAY ==
[2022-12-23 16:00] VITALS: BMI 39.9
--- NOTE | 2023-04-11 07:42 | DI.US.S_ITS ---
PROCEDURE: US PELVIC COMPLETE INDICATIONS: INTRAUTERINE DEVICE PLACEMENT TECHNIQUE: Real-time scanning was performed of the pelvic organs, with image documentation. Additional endovaginal scanning was necessary due to incomplete visualization of the adnexal and endometrial structures by transabdominal scanning. COMPARISON: [facility], US, US PELVIC COMPLETE, 12/11/2022, 4:10. FINDINGS: Uterus: Uterus is anteverted and normal in size at 7.7 x 5.6 x 3.9 cm. The myometrium is homogeneous. The endometrium measures 11.2 mm combined thickness. IUD is within appropriate position. Ovaries: The right ovary measures 3.7 x 2.2 x 2.0 cm, with a calculated ovarian volume of 8.3 cc. The left ovary measures 4.3 x 1.8 x 1.8 cm, with a calculated ovarian volume of 7.3 cc. The ovaries have a normal sonographic appearance. Less than 12 follicles can be seen in the right ovary. Greater than 20 follicles are present in the left ovary. Echogenic foci are noted within the left ovary. No adnexal masses are seen. Other: No pathologic free abdominal or pelvic fluid. IMPRESSION: IUD in appropriate position. Numerous follicles, greater than 20 are present the left ovary as well as small echogenic foci which could represent areas of calcification. We strive to produce accurate, complete, and clear reports of imaging services. To assist us in improving patient care, this report was composed using standard report templates and voice recognition software. Therefore, it may contain abnormal punctuation, insertions and/or omissions. Occasional wrong-word or sound-alike substitutions may occur. Though we review the report and make efforts to correct it, we do recommend that the report be read carefully in proper context to recognize any text inaccuracies. Dictated by: Carla Deng M.D. on 04/11/2023 at 13:51 Approved by: Carla Deng M.D. on 04/11/2023 at 14:09
== END ==
PROVIDERS: PCP Family Medicine; Referring Provider Obstetrics & Gynecology; Visit Provider Obstetrics & Gynecology
DX: T83.32XA Displacement of intrauterine contraceptive device, initial encounter (principal)
CPT/HCPCS: 76830; 76856

== ENCOUNTER 2023-06-15 15:13 | Emergency (ER) | payer OTHER, MEDICAID, SELFPAY ==
[2022-12-23 16:00] VITALS: BMI 39.9
[2023-06-15] VITALS (9 sets, daily range): BP systolic 120–145; BP diastolic 62–89; PULSE 67–92; RESP 18–19; TEMP 36.5; O2SAT 98–100; BMI 29.9
--- NOTE | 2023-06-15 15:21 | ED.ABDPAIN ---
HPI - Abdominal Pain <OLEKSANDR Bowen - Last Filed: 06/15/23 17:19> General Chief Complaint: Abdominal Pain Stated Complaint: N/V/D Time Seen by Provider: 06/15/23 15:20 History of Present Illness HPI narrative: Patient is a 27-year-old history of IBS, C section, surgery for cholecystectomy, appendectomy, right ovarian cyst removal in November 2022 who presents today with vomiting, nausea, abdominal pain, and diarrhea for the last 3 days. She states this is worse and more intense than her IBS. She also has history of Asperger's syndrome, reports having a copper IUD in place, denies fever but endorses chills. Denies dysuria, urinary frequency or urgency, denies abnormal vaginal discharge. Denies brisk pain or flank pain, complains of epigastric pain that radiates to her whole abdomen and her lower abdomen is tender. Denies congestion, sore throat, cough or upper respiratory symptoms. Related Data Previous Rx's Medication Instructions Recorded ondansetron 4 mg disintegrating 4 mg PO Q8H PRN nausea and 06/15/23 tablet vomiting #10 tabs oxycodone-acetaminophen 5 mg-325 1 tab PO Q8H PRN pain #10 tabs 06/15/23 mg tablet (Percocet) promethazine 12.5 mg tablet 12.5 mg PO BID PRN nausea and 06/15/23 vomiting #7 tabs sulfamethoxazole 800 1 tab PO BID 7 days #14 tabs 06/15/23 mg-trimethoprim 160 mg tablet (Bactrim DS) Allergies Allergy/AdvReac Type Severity Reaction Status Date / Time arboleda flavor Allergy Intermediate Hives Verified 06/15/23 15:19 Review of Systems <OLEKSANDR Bowen - Last Filed: 06/15/23 17:19> Review of Systems ROS Unobtainable: All systems reviewed & are unremarkable except as noted in HPI and below Patient History <OLEKSANDR Bowen - Last Filed: 06/15/23 17:19> Medical History ADHD Aspergers' syndrome (~2010) Depression GI bleed History of pre-eclampsia IBS (irritable bowel syndrome) Irritable bowel syndrome (IBS) Macromastia Menorrhagia Surgical History Anesthesia H/O colonoscopy H/O endoscopy H/O neck surgery Hx of cholecystectomy (12/11/22) Stow teeth extracted Family History Mother Diabetes mellitus Skin cancer, basal cell Cholecystitis Grandmother Cholecystitis Stroke Grandmother Colon cancer Grandfather Diabetes mellitus Heart disease Grandfather Heart disease Myocardial infarction Social History marital status: unmarried,single number of children: 0 household members: significant other, family and children lives independently: Yes housing: apartment pets and animals: No education level: high school occupational status: unemployed current occupational exposures/hazards: No special velia needs: No seatbelt use: always water heater temp set < 120 deg: No (water tank incapable of being adjusted below 125.) working smoke detector in home: Yes fire extinguisher in home: Yes carbon monox detector in home: Yes firearms in home: Yes firearms unloaded and locked: No (planning to buy a safe soon) do you feel safe at home: Yes Smoking Status: Former smoker second hand exposure: Yes (MJ smoke) alcohol intake: former substance use type: marijuana during the past year weight has: increased > 10 lbs well-balanced diet: rarely or never daily servings fruits/ve-1 caffeine: No Type(s) of exercise: walking frequency: 1-2 times per week Smoking Status: Former smoker alcohol intake frequency: holidays/special occasions only Substance Use Type: does not use Exam <OLEKSANDR Bowen - Last Filed: 06/15/23 17:19> Narrative Exam Narrative: Reviewed vitals signs and nursing notes. General: Pleasant, resting in bed and appears uncomfortable, in no acute distress, well groomed, afebrile HEENT: symmetrical facial expressions, moist mucous membranes, neck is supple CV: regular rate and rhythm, warm extremities Respiratory: normal work of breathing, without tachypnea or hypoxia. GI: abdomen soft, nondistended, without CVA tenderness bilaterally. Patient has tenderness primarily to the lower quadrants and epigastrium, guarding, no rebound tenderness. MSK: moves all extremities, no weakness, normal tone, ambulatory without deficit Skin: brisk capillary refill, without rash or wound Neuro: clear speech and normal cognition, A&O x3, GCS 15, no focal motor or sensation deficits Initial Vital Signs Initial Vital Signs: Vital Signs Temperature 97.7 F 06/15/23 15:20 Pulse Rate 92 H 06/15/23 15:20 Respiratory Rate 19 06/15/23 15:20 Blood Pressure 145/89 H 06/15/23 15:20 Pulse Oximetry 100 06/15/23 15:20 Oxygen Delivery Method Room Air 06/15/23 15:20 <Ankit Angulo DO - Last Filed: 06/16/23 07:11> Initial Vital Signs Initial Vital Signs: Vital Signs Temperature 97.7 F 06/15/23 15:20 Pulse Rate 92 H 06/15/23 15:20 Respiratory Rate 19 06/15/23 15:20 Blood Pressure 145/89 H 06/15/23 15:20 Pulse Oximetry 100 06/15/23 15:20 Oxygen Delivery Method Room Air 06/15/23 15:20 Course <OLEKSANDR Bowen - Last Filed: 06/15/23 17:19> Orders Ordered: Discontinued Medications Hydromorphone HCl (Hydromorphone 0.5 Mg Inj) 0.5 mg IV NOW ONE Stop: 06/15/23 15:26 Last Admin: 06/15/23 15:40 Dose: 0.5 mg Documented By: RODRIGO Lactated Ringer's (Lactated Ringers) 1,000 mls @ 1,000 mls/hr IV BOLUS ONE Stop: 06/15/23 16:24 Last Infusion: 06/15/23 16:49 Dose: 0 mls/hr Documented By: Admin: 06/15/23 15:40 Dose: 1,000 mls/hr Documented By: RODRIGO Ondansetron HCl (Ondansetron 4 Mg Odt) 4 mg PO NOW PRN PRN Reason: Nausea And Vomiting Ondansetron HCl (Ondansetron 4 Mg/2 Ml Inj) 4 mg IV NOW PRN PRN Reason: Nausea And Vomiting Ondansetron HCl (Ondansetron 4 Mg/2 Ml Inj) 4 mg IV NOW ONE Stop: 06/15/23 16:02 Last Admin: 06/15/23 16:10 Dose: 4 mg Documented By: REBECA Promethazine HCl (Promethazine 25 Mg Tablet) 12.5 mg PO NOW ONE Stop: 06/15/23 16:46 Last Admin: 06/15/23 16:58 Dose: 12.5 mg Documented By: RODRIGO Trimethoprim/Sulfamethoxazole (Trimeth/Sulfa 160/800 (Ds) Tablet) 1 tab PO NOW ONE Stop: 06/15/23 15:46 Last Admin: 06/15/23 16:10 Dose: 1 tab Documented By: REBECA Vital Signs Vital signs: Vital Signs - 8 hr 06/15/23 15:20 06/15/23 15:22 06/15/23 15:30 Temperature 97.7 F Pulse Rate 92 H 78 Respiratory Rate 19 Blood Pressure 145/89 H 142/86 H Pulse Oximetry 100 100 Oxygen Delivery Method Room Air 06/15/23 15:30 06/15/23 15:54 06/15/23 15:54 Temperature Pulse Rate 81 83 Respiratory Rate Blood Pressure 143/85 H Pulse Oximetry 100 99 Oxygen Delivery Method 06/15/23 16:00 06/15/23 16:00 06/15/23 16:30 Temperature Pulse Rate 81 Respiratory Rate Blood Pressure 136/76 121/62 Pulse Oximetry 98 Oxygen Delivery Method 06/15/23 16:30 06/15/23 17:00 06/15/23 17:00 Temperature Pulse Rate 67 75 Respiratory Rate Blood Pressure 123/66 Pulse Oximetry 100 100 Oxygen Delivery Method 06/15/23 17:01 06/15/23 17:01 Temperature Pulse Rate 77 Respiratory Rate Blood Pressure 120/68 Pulse Oximetry 100 Oxygen Delivery Method <Ankit Angulo DO - Last Filed: 06/16/23 07:11> Orders Ordered: Discontinued Medications Hydromorphone HCl (Hydromorphone 0.5 Mg Inj) 0.5 mg IV NOW ONE Stop: 06/15/23 15:26 Last Admin: 06/15/23 15:40 Dose: 0.5 mg Documented By: RODRIGO Lactated Ringer's (Lactated Ringers) 1,000 mls @ 1,000 mls/hr IV BOLUS ONE Stop: 06/15/23 16:24 Last Infusion: 06/15/23 16:49 Dose: 0 mls/hr Documented By: Admin: 06/15/23 15:40 Dose: 1,000 mls/hr Documented By: RODRIGO Ondansetron HCl (Ondansetron 4 Mg Odt) 4 mg PO NOW PRN PRN Reason: Nausea And Vomiting Ondansetron HCl (Ondansetron 4 Mg/2 Ml Inj) 4 mg IV NOW PRN PRN Reason: Nausea And Vomiting Ondansetron HCl (Ondansetron 4 Mg/2 Ml Inj) 4 mg IV NOW ONE Stop: 06/15/23 16:02 Last Admin: 06/15/23 16:10 Dose: 4 mg Documented By: REBECA Promethazine HCl (Promethazine 25 Mg Tablet) 12.5 mg PO NOW ONE Stop: 06/15/23 16:46 Last Admin: 06/15/23 16:58 Dose: 12.5 mg Documented By: RODRIGO Trimethoprim/Sulfamethoxazole (Trimeth/Sulfa 160/800 (Ds) Tablet) 1 tab PO NOW ONE Stop: 06/15/23 15:46 Last Admin: 06/15/23 16:10 Dose: 1 tab Documented By: REBECA Vital Signs Vital signs: Vital Signs - 8 hr 06/15/23 15:20 06/15/23 15:22 06/15/23 15:30 Temperature 97.7 F Pulse Rate 92 H 78 Respiratory Rate 19 Blood Pressure 145/89 H 142/86 H Pulse Oximetry 100 100 Oxygen Delivery Method Room Air 06/15/23 15:30 06/15/23 15:54 06/15/23 15:54 Temperature Pulse Rate 81 83 Respiratory Rate Blood Pressure 143/85 H Pulse Oximetry 100 99 Oxygen Delivery Method 06/15/23 16:00 06/15/23 16:00 06/15/23 16:30 Temperature Pulse Rate 81 Respiratory Rate Blood Pressure 136/76 121/62 Pulse Oximetry 98 Oxygen Delivery Method 06/15/23 16:30 06/15/23 17:00 06/15/23 17:00 Temperature Pulse Rate 67 75 Respiratory Rate Blood Pressure 123/66 Pulse Oximetry 100 100 Oxygen Delivery Method 06/15/23 17:01 06/15/23 17:01 Temperature Pulse Rate 77 Respiratory Rate Blood Pressure 120/68 Pulse Oximetry 100 Oxygen Delivery Method MDM - Abdominal Pain <OLEKSANDR Bowen - Last Filed: 06/15/23 17:19> Lab Data 06/15/23 15:22 06/15/23 15:22 Labs: Lab Results 06/15/23 06/15/23 06/15/23 Range/Units 15:22 15:22 15:55 WBC 8.3 (4.5-11.0) X10^3/uL RBC 4.52 (4.0-5.2) X10^6/uL Hgb 13.6 (12.0-16.0) g/dL Hct 39.4 (36-46) % MCV 87.3 (80-100) fL MCH 30.2 (26-34) PG MCHC 34.6 (30-36) % RDW 13.6 (11.6-14.8) % Plt Count 280 (150-400) X10^3/uL Neut % (Auto) 66.7 (50-75) % Lymph % (Auto) 22.8 L (25-40) % [place] % (Auto) 8.9 (3-14) % Eos % (Auto) 1.2 L (2-4) % Baso % (Auto) 0.4 (0-2) % Neut # (Auto) 5600 (3228-1977) /uL Lymph # (Auto) 1900 (2275-5957) /uL [place] # (Auto) 700 (0-900) /uL Eos # (Auto) 100 (0-450) /uL Baso # (Auto) 0 (0-100) /uL Sodium 137 (137-145) mmol/L Potassium 3.9 (3.4-5.1) mmol/L Chloride 103 (98-107) mmol/L Carbon Dioxide 27 (22-32) mmol/L BUN 6 L (7-17) mg/dL Creatinine 0.81 (0.52-1.04) mg/dL Estimated GFR > 60 (>60) mL/min BUN/Creatinine Ratio 7.4 (6-22) Glucose 91 (70-100) mg/dL Calcium 9.5 (8.4-10.2) mg/dL Total Bilirubin 1.8 H (0.2-1.3) mg/dL AST 30 (14-36) IU/L ALT 25 (<35) IU/L Alkaline Phosphatase 111 (38-126) U/L Total Protein 8.0 (6.3-8.2) g/dL Albumin 4.6 (3.5-5.0) g/dL Globulin 3.4 (1.7-4.1) g/dL Albumin/Globulin Ratio 1.4 (1.0-2.8) Lipase 51 (23-300) U/L Urine RBC 1-5/hpf D (0-5/HPF) Urine WBC 5-10/hpf H (0-5/HPF) Ur Squamous Epith Cells 5-10 /hpf H (0-5/HPF) Urine Bacteria Moderate (10-30) H (None) Ur Culture Indicated? Specimen cultured Point of care testing: Point of Care Testing Test Results Negative Urine Dip Bedside Urine Glucose Negative Bedside Urine Bilirubin - Negative Bedside Urine Ketone - Negative Urine Specific [place] 1.03 Bedside Urine Occult Blood +/- Bedside Urine pH 6 Bedside Urine Protein - Negative Bedside Urine Urobilinogen - Negative Bedside Urine Nitrite + Positive Bedside Urine Leukocytes +/- [address] scan - abdomen/pelvis: Radiologist's Impression: [address] [address] [address] Scan Report Signed Patient: Dulce Rodriguez MR#: [id number] : 1995 Acct:[id number] Age/Sex: 28 / F Date of Service: 06/15/23 Loc: ED Accession Number: [id number] ?? Procedure: CT abdomen pelvis w con Ordering Provider: Janessa Moody PROCEDURE:? CT ABDOMEN PELVIS W CON ? INDICATIONS:? Transverse lower abdominal pain, ABD surgery 12/14 ? TECHNIQUE:? After the administration of IV contrast, axial sections were acquired from the lung bases to the pubic symphysis.? Coronal and sagittal reformats were performed.? For radiation dose reduction, the following was used:? automated exposure control, adjustment of mA and/or kV according to patient size. ? COMPARISON:? [facility], CT, CT ABDOMEN PELVIS W CON, 12/11/2022, 5:44.? [facility], CT, CT ABDOMEN PELVIS W CON, 12/23/2022, 10:23. ? FINDINGS:? Image quality:? Excellent.? ? Lung bases:? No pleural effusion.? ? Heart:? No significant findings. ? ? ABDOMEN: Liver:? No focal lesion.? ? Gallbladder:? Absent.? No fluid collection. ? Biliary ducts:? Not dilated. Pancreas:? Enhances uniformly. Spleen:? Unremarkable.? ? Adrenal Glands:? Unremarkable.? ? Kidneys and Ureters:? No hydronephrosis. ? Stomach and Bowel:? Stomach, small bowel loops, and colon are unremarkable.? Appendix is absent. Peritoneum:? No abnormal intraperitoneal fluid.? No free air.? ? Ventral Wall: ? No hernia.? Abdominal Nodes:? No retroperitoneal or mesenteric adenopathy by size criteria.? Vessels:? Aorta and inferior vena cava are normal in size.? ? PELVIS: Pelvic Organs:? IUD centered in the uterus.? Anteverted uterus.? Trace free fluid in the pelvis. ? Bladder:? No stone.? Decompressed. Pelvic Nodes: No enlarged lymph nodes.? Miscellaneous: No inguinal hernias are seen.? Left labial cyst measuring 2.1 cm, (), previously 1.5 cm.? ? ? Bones:? No suspicious osseous lesion. ? ? IMPRESSION:? No acute inflammatory process is identified.? No small bowel obstruction. ? Post appendectomy. ? Trace free fluid in the pelvis is felt to be physiologic. ? Cyst in the region of the left labia measuring 2.1 cm.? Suspect Bartholin gland cyst.? ? ? Dictated by: Shan Frederick M.D. on 06/15/2023 at 16:39 ? ? Approved by: Shan Frederick M.D. on 06/15/2023 at 16:49 ? MDM Narrative Medical decision making narrative: Chief Complaint: abdominal pain, diarrhea Multiple etiologies for patient's complaint considered including, but not limited to: Diverticulitis, cholangitis, appendicitis, perforated viscus, gastric ulcer, GERD, urinary tract infection, IBS, intra-abdominal abscess/seroma, ovarian cyst I have independently reviewed the patient's vital signs and nursing notes as well as prior records if available. Course of Care: Ordered pain control, Zofran, IV fluid, and CT abdomen pelvis, pending labs my interpretation of lab values: There is no leukocytosis or anemia, no left shift Urine dip is positive for nitrites and leukocytes, sent for microscopy, urine negative patient's most recent urine culture from 01/05/2023 grew Enterobacter aerogenes, showed resistance to Augmentin, cefazolin, indeterminate to imipenem and nitrofurantoin Patient was treated with Bactrim for UTI. Urine culture shows susceptibility to this per recent urine culture. Total bilirubin is elevated at 1.8, no elevated liver enzymes. Suspect the bilirubin is related to dehydration, patient was given 1 L of lactated Ringer's, Zofran, had ongoing nausea and another dose of Zofran did not get rid of nausea so patient was then given 12.5 of Phenergan which patient reports made her feel better. No other significant findings on her lab work. CT abdomen pelvis shows no acute abnormalities, incidentally she has enlargement of a left labial cyst which is likely a Bartholin gland cyst. Patient denies any pain to this, was encouraged to follow-up with her OBGYN for a scheduled drainage of this but in the meantime to start doing warm compresses and Sitz baths. She denies any tenderness. She was treated for an acute urinary tract infection, suspect that she may have symptoms of gastritis or esophagitis as well but does not have epigastric tenderness to palpation. This is likely secondary to vomiting. IUD is centered in place, trace of free fluid in the pelvis on CT is felt to be physiologic and she is post appendectomy without evidence of fluid collection or intra-abdominal abnormality. Patient's mother is here with her caring for the patient and for her daughter. Patient is neurologically intact but fatigued after Phenergan, patient reports feeling much better and the pain medication she received was hydromorphone. She is ambulatory without dizziness and does not have flank pain bilaterally. She is afebrile without tachycardia or other signs of SIRS. No leukocytosis, no left shift. She understands to follow-up with PCP or Dr. Aguayo for evaluation of the Bartholin gland cyst if it does not improve with Sitz baths compresses. Social considerations that may affect disposition: none Questions are addressed and there is agreement with the plan and for follow-up. I consulted with the ED attending physician Dr. Angulo as needed for higher level of care considerations and they were available for discussion and recommendations regarding plan of care and diagnostic testing. Patient is appropriate for outpatient management. <Ankit Angulo, DO - Last Filed: 06/16/23 07:11> Lab Data Labs: Lab Results 06/15/23 06/15/23 06/15/23 Range/Units 15:22 15:22 15:55 WBC 8.3 (4.5-11.0) X10^3/uL RBC 4.52 (4.0-5.2) X10^6/uL Hgb 13.6 (12.0-16.0) g/dL Hct 39.4 (36-46) % MCV 87.3 (80-100) fL MCH 30.2 (26-34) PG MCHC 34.6 (30-36) % RDW 13.6 (11.6-14.8) % Plt Count 280 (150-400) X10^3/uL Neut % (Auto) 66.7 (50-75) % Lymph % (Auto) 22.8 L (25-40) % [place] % (Auto) 8.9 (3-14) % Eos % (Auto) 1.2 L (2-4) % Baso % (Auto) 0.4 (0-2) % Neut # (Auto) 5600 (0589-9714) /uL Lymph # (Auto) 1900 (2423-5253) /uL [place] # (Auto) 700 (0-900) /uL Eos # (Auto) 100 (0-450) /uL Baso # (Auto) 0 (0-100) /uL Sodium 137 (137-145) mmol/L Potassium 3.9 (3.4-5.1) mmol/L Chloride 103 (98-107) mmol/L Carbon Dioxide 27 (22-32) mmol/L BUN 6 L (7-17) mg/dL Creatinine 0.81 (0.52-1.04) mg/dL Estimated GFR > 60 (>60) mL/min BUN/Creatinine Ratio 7.4 (6-22) Glucose 91 (70-100) mg/dL Calcium 9.5 (8.4-10.2) mg/dL Total Bilirubin 1.8 H (0.2-1.3) mg/dL AST 30 (14-36) IU/L ALT 25 (<35) IU/L Alkaline Phosphatase 111 (38-126) U/L Total Protein 8.0 (6.3-8.2) g/dL Albumin 4.6 (3.5-5.0) g/dL Globulin 3.4 (1.7-4.1) g/dL Albumin/Globulin Ratio 1.4 (1.0-2.8) Lipase 51 (23-300) U/L Urine RBC 1-5/hpf D (0-5/HPF) Urine WBC 5-10/hpf H (0-5/HPF) Ur Squamous Epith Cells 5-10 /hpf H (0-5/HPF) Urine Bacteria Moderate (10-30) H (None) Ur Culture Indicated? Specimen cultured Point of care testing: Point of Care Testing Test Results Negative Urine Dip Bedside Urine Glucose Negative Bedside Urine Bilirubin - Negative Bedside Urine Ketone - Negative Urine Specific [place] 1.03 Bedside Urine Occult Blood +/- Bedside Urine pH 6 Bedside Urine Protein - Negative Bedside Urine Urobilinogen - Negative Bedside Urine Nitrite + Positive Bedside Urine Leukocytes +/- 15 Esterase Discharge Plan Departure Patient Disposition: Home Clinical Impression: Labial cyst Urinary tract infection Qualifiers: Urinary tract infection type: site unspecified Hematuria presence: without hematuria Qualified Code(s): N39.0 - Urinary tract infection, site not specified Instructions: DI for Urinary Tract Infection (UTI), Bartholin Gland Cyst Activity Restrictions/Additional Instructions: *You have been diagnosed with a urinary tract infection. Please take this antibiotic until it is gone. Stay hydrated and drink plenty of clear fluids. Use Zofran as needed for nausea and vomiting. If that is not helpful, okay to use Phenergan but this will make you very sleepy. Please do not drive with this medication. Please follow-up with your primary care provider or [facility] about the cyst on your labia, this can be removed or drained very easily without a big procedure. I hope you start feeling better soon, return for new or worsening changes, we will call you if we need to change your antibiotic. *What to do: *Please continue to take your regular medications as directed. [x ] New medication prescriptions sent to your pharmacy: [[facility]] [ ] New medication written as a paper prescription [ ] No new medications given *Please call and schedule follow up with your primary care provider in 2-3 days, at least for an update. Let them know you were seen in the Emergency Department for the above problem. We will electronically transmit a record of today's note if your PCP or specialist is in our system. *If you do not have a primary care provider please contact [phone] to establish care with one of the [facility] primary care providers. *Return to the Emergency Department for worsening symptoms, inability to keep liquids down, fever greater than 101F, chills, or other concerning symptom. Prescriptions: New ondansetron 4 mg tablet,disintegrating 4 mg PO Q8H PRN (Reason: nausea and vomiting) Qty: 10 0RF sulfamethoxazole-trimethoprim [Bactrim DS] 800-160 mg tablet 1 tab PO BID 7 Days Qty: 14 0RF promethazine 12.5 mg tablet 12.5 mg PO BID PRN (Reason: nausea and vomiting) Qty: 7 0RF oxycodone-acetaminophen [Percocet] 5-325 mg tablet 1 tab PO Q8H PRN (Reason: pain) Qty: 10 0RF Referrals: Rolo Suazo DO [Primary Care Provider] - Stand Alone Forms: Patient Portal/API <Ankit Angulo DO - Last Filed: 06/16/23 07:11> Cosign ED Attending Sherwin Attestation: I was immediately available in the department for consultation. Documentation has been reviewed. I agree with assessment and plan.
--- NOTE | 2023-06-15 15:25 | DI.CT.S_ITS ---
PROCEDURE: CT ABDOMEN PELVIS W CON INDICATIONS: Transverse lower abdominal pain, ABD surgery 12/14 TECHNIQUE: After the administration of IV contrast, axial sections were acquired from the lung bases to the pubic symphysis. Coronal and sagittal reformats were performed. For radiation dose reduction, the following was used: automated exposure control, adjustment of mA and/or kV according to patient size. COMPARISON: [facility], CT, CT ABDOMEN PELVIS W CON, 12/11/2022, 5:44. [facility], CT, CT ABDOMEN PELVIS W CON, 12/23/2022, 10:23. FINDINGS: Image quality: Excellent. Lung bases: No pleural effusion. Heart: No significant findings. ABDOMEN: Liver: No focal lesion. Gallbladder: Absent. No fluid collection. Biliary ducts: Not dilated. Pancreas: Enhances uniformly. Spleen: Unremarkable. Adrenal Glands: Unremarkable. Kidneys and Ureters: No hydronephrosis. Stomach and Bowel: Stomach, small bowel loops, and colon are unremarkable. Appendix is absent. Peritoneum: No abnormal intraperitoneal fluid. No free air. Ventral Wall: No hernia. Abdominal Nodes: No retroperitoneal or mesenteric adenopathy by size criteria. Vessels: Aorta and inferior vena cava are normal in size. PELVIS: Pelvic Organs: IUD centered in the uterus. Anteverted uterus. Trace free fluid in the pelvis. Bladder: No stone. Decompressed. Pelvic Nodes: No enlarged lymph nodes. Miscellaneous: No inguinal hernias are seen. Left labial cyst measuring 2.1 cm, (), previously 1.5 cm. Bones: No suspicious osseous lesion. IMPRESSION: No acute inflammatory process is identified. No small bowel obstruction. Post appendectomy. Trace free fluid in the pelvis is felt to be physiologic. Cyst in the region of the left labia measuring 2.1 cm. Suspect Bartholin gland cyst. Dictated by: Shan Frederick M.D. on 06/15/2023 at 16:39 Approved by: Shan Frederick M.D. on 06/15/2023 at 16:49
[2023-06-15 15:31] LABS: Add Manual Diff / Slide Review NO; Basophils Absolute Auto 0 /uL (0-100); Basophils Percent Auto 0.4 % (0-2); Eosinophils Absolute Auto 100 /uL (0-450); Eosinophils Percent Auto 1.2 % (2-4); Hematocrit 39.4 % (36-46); Hemoglobin 13.6 g/dL (12.0-16.0); Lymphocytes Absolute Auto 1900 /uL (1100-4500); Lymphocytes Percent Auto 22.8 % (25-40); Mean Corpuscular HGB Conc 34.6 % (30-36); Mean Corpuscular Hemoglobin 30.2 PG (26-34); Mean Corpuscular Volume 87.3 fL (80-100); Monocytes Absolute Auto 700 /uL (0-900); Monocytes Percent Auto 8.9 % (3-14); Neutrophils Absolute Auto 5600 /uL (1500-7000); Neutrophils Percent Auto 66.7 % (50-75); Platelet Count 280 X10^3/uL (150-400); Red Blood Cell Count 4.52 X10^6/uL (4.0-5.2); Red Cell Distribution Width 13.6 % (11.6-14.8); White Blood Cell Count 8.3 X10^3/uL (4.5-11.0)
[2023-06-15] MEDS: LACTATED RINGERS 1,000 ML 1000 ML IV (15:40)
[2023-06-15] MEDS: HYDROMORPHONE 0.5 MG INJ IV (15:40)
[2023-06-15] MEDS: TRIMETH/SULFA 160/800 (DS) TABLET 1 TAB PO (16:10)
[2023-06-15] MEDS: ONDANSETRON 4 MG/2 ML INJ IV (16:10)
[2023-06-15 16:12] LABS: Alanine Aminotransferase 25 IU/L (<35); Albumin 4.6 g/dL (3.5-5.0); Albumin Globulin Ratio 1.4 (1.0-2.8); Alkaline Phosphatase 111 U/L (38-126); Aspartate Aminotransferase 30 IU/L (14-36); BUN Creatinine Ratio 7.4 (6-22); Bilirubin Total 1.8 mg/dL (0.2-1.3); Blood Urea Nitrogen 6 mg/dL (7-17); Calcium 9.5 mg/dL (8.4-10.2); Carbon Dioxide 27 mmol/L (22-32); Chloride 103 mmol/L (98-107); Estimated Glomerular Filt Rate > 60 mL/min (>60); Globulin 3.4 g/dL (1.7-4.1); Glucose 91 mg/dL (70-100); HEMOLYSIS < 15 (0-50); Lipase 51 U/L (23-300); Potassium 3.9 mmol/L (3.4-5.1); Sodium 137 mmol/L (137-145)
[2023-06-15 16:12] LABS: Bacteria Urine Moderate (10-30); Culture Indicated Urine Specimen Cultured; RBC Urine 1-5/HPF (0-5/HPF); Squamous Epithelial Cell Urine 5-10 /HPF (0-5/HPF); WBC Urine 5-10/HPF (0-5/HPF)
[2023-06-15] MEDS: PROMETHAZINE 25 MG TABLET 12.5 MG PO (16:58)
== END 2023-06-15 17:21 | disposition home or self-care (01) ==
PROVIDERS: Emergency Medicine; Emergency Provider Nurse Practitioner Critical Care Medicine; PCP Family Medicine
DX: N39.0 Urinary tract infection, site not specified (principal); N90.7 Vulvar cyst
CPT/HCPCS: 36415; 74177; 80053; 81003; 81015; 81025; 83690; 85025; 87077; 87086; 87186; 96361; 96374; 96375; 99284; J1170; J2405

== ENCOUNTER → 2023-08-10 15:58 | Outpatient (CLI) | payer OTHER, MEDICAID, SELFPAY ==
[2022-12-23 16:00] VITALS: BMI 39.9
--- NOTE | 2023-08-10 16:30 | DI.US.S_ITS ---
PROCEDURE: US PELVIC COMPLETE INDICATIONS: IRREGULAR BLEEWDING - IUD TECHNIQUE: Real-time scanning was performed of the pelvic organs, with image documentation. Additional endovaginal scanning was necessary due to incomplete visualization of the adnexal and endometrial structures by transabdominal scanning. COMPARISON: [facility], US, US PELVIC COMPLETE, 04/11/2023, 8:04. FINDINGS: Uterus: Uterus is anteverted and normal in size at 8.8 x 3.6 x 5.1 cm. The myometrium is homogeneous. The endometrium measures 9 mm combined thickness. An IUD is present in the fundus as expected. Ovaries: The right ovary measures 3.7 x 3.0 x 2.7 cm, with a calculated ovarian volume of 15.5 cc. The left ovary measures 3.5 x 1.9 x 2.0 cm, with a calculated ovarian volume of 7.0 cc. The ovaries have a normal sonographic appearance. Less than 12 follicles can be seen in each ovary. No adnexal masses are seen. Other: No pathologic free abdominal or pelvic fluid. IMPRESSION: 1. IUD in expected location. 2. Endometrium within normal limits. We strive to produce accurate, complete, and clear reports of imaging services. To assist us in improving patient care, this report was composed using standard report templates and voice recognition software. Therefore, it may contain abnormal punctuation, insertions and/or omissions. Occasional wrong-word or sound-alike substitutions may occur. Though we review the report and make efforts to correct it, we do recommend that the report be read carefully in proper context to recognize any text inaccuracies. Dictated by: Liliam Saenz M.D. on 08/10/2023 at 17:12 Approved by: Liliam Saenz M.D. on 08/10/2023 at 17:15
== END ==
PROVIDERS: PCP Family Medicine; Referring Provider Obstetrics & Gynecology; Visit Provider Obstetrics & Gynecology
DX: Z30.431 Encounter for routine checking of intrauterine contraceptive device (principal); N92.1 Excessive and frequent menstruation with irregular cycle
CPT/HCPCS: 76830; 76856; 93976

== ENCOUNTER → 2023-08-15 16:23 | Outpatient (CLI) | payer OTHER, MEDICAID, SELFPAY ==
[2022-12-23 16:00] VITALS: BMI 39.9
[2023-08-15 22:34] LABS: Urine N gonorrhoeae NOT DETECTED
[2023-08-15 23:26] LABS: Urine Chlamydia NOT DETECTED
== END ==
PROVIDERS: PCP Family Medicine; Visit Provider Obstetrics & Gynecology
DX: R10.2 Pelvic and perineal pain (principal)
CPT/HCPCS: 81025; 87491; 87591

== ENCOUNTER 2024-02-10 12:32 | Emergency (ER) | payer OTHER, MEDICAID, SELFPAY ==
[2022-12-23 16:00] VITALS: BMI 39.9
[2024-02-10 12:49] VITALS: BP 149/85; PULSE 105; RESP 18; TEMP 36.9; O2SAT 100; BMI 31.0
--- NOTE | 2024-02-10 13:26 | ED_ITS ---
HPI - Skin/Abscess/Foreign Bdy General Chief complaint: Skin/Abscess/Foreign Body Stated complaint: cyst on nether regions- on abx Time Seen by Provider: 02/10/24 12:57 Source: patient Mode of arrival: Family Vehicle Limitations: no limitations History of Present Illness HPI narrative: Patient seen last week and placed on Keflex by primary care for Bartholin cyst on the left side. No prior history of this in the past. Patient does see OBGYN Dr. Aguayo. Has not contacted Dr. Aguayo for this problem. Patient states the pain and swelling has gotten worse. No improvement. Tetanus is up-to-date. Denies . Female nurses Dyana Kc and Kaylyn, assisted and chaperoned. For exam and procedure Related Data Home Medications Medication Instructions Recorded Confirmed copper 380 square mm intrauterine intrauterine 08/15/23 02/08/24 device (ParaGard T 380A) Previous Rx's Medication Instructions Recorded topiramate 50 mg tablet 50 mg PO BEDTIME #30 tabs 01/15/24 cephalexin 500 mg tablet 500 mg PO QID #28 tabs 02/08/24 eletriptan 20 mg tablet (Relpax) See Rx Instructions PO .COMPLEX 02/08/24 #30 tabs Allergies Allergy/AdvReac Type Severity Reaction Status Date / Time arboleda flavor Allergy Intermediate Hives Verified 02/10/24 12:56 Review of Systems Review of Systems Narrative: GENERAL: negative chills, fatigue, malaise, fever, sweats. HEENT: negative sinus pain, ear pain, sore throat RESPIRATORY: negative dyspnea, cough CARDIOVASCULAR: negative chest pain, palpitations GASTROINTESTINAL: negative nausea, vomiting, abdominal pain : negative dysuria, frequency, hematuria, positive lesion MUSCULOSKELETAL: negative muscle or bony pain SKIN: negative rash, skin lesions NEUROLOGIC: negative weakness, numbness ROS Unobtainable: All systems reviewed & are unremarkable except as noted in HPI and below Patient History Medical History Sebaceous cyst of breast Migraine headache with aura Menorrhagia Macromastia History of pre-eclampsia IBS (irritable bowel syndrome) GI bleed Aspergers' syndrome (~2010) ADHD Depression Irritable bowel syndrome (IBS) Surgical History Hx of cholecystectomy (12/11/22) Anesthesia H/O colonoscopy H/O endoscopy H/O neck surgery [place] teeth extracted Family History Mother Diabetes mellitus Skin cancer, basal cell Cholecystitis Grandmother Cholecystitis Stroke Grandmother Colon cancer Grandfather Diabetes mellitus Heart disease Grandfather Heart disease Myocardial infarction Social History marital status: unmarried,single number of children: 0 household members: significant other, family and children lives independently: Yes housing: apartment pets and animals: No education level: high school occupational status: unemployed current occupational exposures/hazards: No special velia needs: No seatbelt use: always water heater temp set < 120 deg: No (water tank incapable of being adjusted below 125.) working smoke detector in home: Yes fire extinguisher in home: Yes carbon monox detector in home: Yes firearms in home: Yes firearms unloaded and locked: No (planning to buy a safe soon) do you feel safe at home: Yes Smoking Status: Former smoker second hand exposure: Yes (MJ smoke) alcohol intake: former substance use type: marijuana during the past year weight has: increased > 10 lbs well-balanced diet: rarely or never daily servings fruits/ve-1 caffeine: No Type(s) of exercise: walking frequency: 1-2 times per week Smoking Status: Former smoker tobacco type: cigarettes alcohol intake frequency: holidays/special occasions only Substance Use Type: marijuana Exam Narrative Exam Narrative: GENERAL: in no distress, not toxic not dyspneic HEAD: Normocephalic. EYES: Pupils equal round ENT: Mucous membranes moist. NECK: Trachea midline. CARDIOVASCULAR: Regular rate and rhythm RESPIRATORY: Clear to auscultation. Breath sounds equal bilaterally. No wheezes, rales, or rhonchi. GASTROINTESTINAL: Abdomen soft, non-tender : Female nurses assisted per examined procedure. There is a 2 cm Bartholin cyst on the left side. It is fluctuant. Tender to touch. EXTREMITIES: No gross deformities. BACK: No flank tenderness. NEURO: AOx4. SKIN: Warm and dry PSYCH: Not anxious, is cooperative Initial Vital Signs Initial Vital Signs: Vital Signs Temperature 98.5 F 02/10/24 12:49 Pulse Rate 105 H 04/21/24 12:49 Respiratory Rate 18 02/10/24 12:49 Blood Pressure 149/85 H 02/10/24 12:49 Pulse Oximetry 100 02/10/24 12:49 Oxygen Delivery Method Room Air 02/10/24 12:49 Procedures Abscess I/D I&D #1: Time of procedure: 13:36 Site: other (Left vulva) Side (if applicable): left Local Anesthetic: lidocaine 1% and with epi Amount of anesthesia used (mL): 2 Technique: incised with #11 blade Amount of fluid expressed (mL): 3 Irrigation: Yes Packing used?: none Complications: other (Scant bleeding but controlled with pressure.. At time of discharge) Course Orders Ordered: ED Orders 02/10/24 13:06 Wound Culture and Gram Stain Stat Discontinued Medications Lidocaine/Epinephrine (Lidocaine 1% W/Epi) 20 ml INJ INTRA-OP ONE Stop: 02/10/24 13:07 Last Admin: 02/10/24 13:35 Dose: 20 ml Documented By: JIMENA Vital Signs Vital signs: Vital Signs - 8 hr 02/10/24 12:49 02/10/24 13:41 Temperature 98.5 F 98.7 F Pulse Rate 105 H 91 H Respiratory Rate 18 16 Blood Pressure 149/85 H 131/77 Pulse Oximetry 100 100 Oxygen Delivery Method Room Air Room Air MDM - Skin/Abscess/Foreign Bdy Lab Data Labs: Point of Care Testing Test Results Negative MDM Narrative Medical decision making narrative: Patient seen last week and placed on Keflex by primary care for Bartholin cyst on the left side. No prior history of this in the past. Patient does see OBGYN Dr. Aguayo. Has not contacted Dr. Aguayo for this problem. Patient states the pain and swelling has gotten worse. No improvement. Tetanus is up-to-date. Denies . Female nurses Dyana Kc and Kaylyn, assisted and chaperoned. For exam and procedure After history and exam verbal consent for incision drainage of Bartholin cyst. Abscess culture MDM Medical records reviewed: No recent visit here for this complaint Differential considered: Includes but not limited to Bartholin cyst cutaneous abscess Negative Treatments: Incision drainage Re-evaluations: 1:45 p.m.. Patient feeling much better at time of discharge. Bleeding is controlled and reviewed return precautions with patient. Patient has established OBGYN Dr. Aguayo. Bulky pressure dressing applied incision site. Patient desires discharge home. Discussion: Appropriate for discharge home exam is reassuring. Patient tolerated incision drainage very well. Return precautions reviewed patient. Pain is controlled. Patient already on Keflex. She desires discharge home Diagnosis: Bartholin cyst Discharge Plan Departure Patient Disposition: Home Clinical Impression: Bartholin cyst Instructions: DI for Incision and Drainage of a Skin Abscess, DI for Bartholin Gland Cyst Activity Restrictions/Additional Instructions: You had incision and drainage of a Bartholin cyst on the left side today. There may be small amount of bleeding from the incision site. Fluid was drained from the cyst. It has been sent out for culturing. However continue the antibiotic you were given last week. Call Dr. Aguayo's office tomorrow for re-evaluation this week. Return if worse if any questions or concerns. Pain will improve since the cyst was drained. May continue Tylenol or ibuprofen for pain. Prescriptions: No Action topiramate 50 mg tablet 50 mg PO BEDTIME Qty: 30 2RF cephalexin 500 mg tablet 500 mg PO QID Qty: 28 0RF Rx Instructions: take four times a day for a week eletriptan [Relpax] 20 mg tablet See Rx Instructions PO .COMPLEX Qty: 30 1RF Rx Instructions: take 1 tab at onset of headache; if no relief may repeat 1 tab after at least 2 hrs; max = 4 tabs/24 hr PO ParaGard T 380A 380 square mm intrauterine device intrauterine Referrals: oRlo Suazo DO [Primary Care Provider] - Christian Aguayo MD [Physician] - Stand Alone Forms: Patient Portal/API
[2024-02-10] MEDS: LIDOCAINE 1% W/EPI 20 ML INJ (13:35)
[2024-02-10 13:41] VITALS: BP 131/77; PULSE 91; RESP 16; TEMP 37.1; O2SAT 100
--- NOTE | 2024-02-10 13:41 | PC.NURSE ---
abscess w/ no drainage noted to left side of labia.
== END 2024-02-10 13:42 | disposition home or self-care (01) ==
PROVIDERS: Emergency Provider Emergency Medicine; PCP Family Medicine
DX: N75.0 Cyst of Bartholin's gland (principal)
CPT/HCPCS: 56420; 81025; 87070; 87077; 87186; 87205; 99282; 99283

== ENCOUNTER 2024-03-15 10:11 | Emergency (ER) | payer OTHER, MEDICAID, SELFPAY ==
[2022-12-23 16:00] VITALS: BMI 39.9
[2024-03-15 10:14] VITALS: BP 136/75; PULSE 89; RESP 15; TEMP 36.9; O2SAT 100; BMI 31.6
--- NOTE | 2024-03-15 10:57 | ED_ITS ---
HPI - Female Genitourinary General Chief complaint: Urogenital-Female Stated complaint: cath fell out, lots of pain Time Seen by Provider: 03/15/24 10:55 Source: patient Mode of arrival: Ambulatory History of Present Illness HPI Narrative: Today, increasing pain, no discharge. 28-year-old female status post recent vaginal labial I&D for Bartholin's cyst on 02/10/2024, saw gynecology Dr. Aguayo yesterday for word catheter placement, fell out today in the shower. She recalls completing a course of cephalexin antibiotic from her previous ED visit 02/10/2024, and took all the medications. She denies fevers or chills. There is some bleeding at the previous surgical site she believes. Related Data Home Medications Medication Instructions Recorded Confirmed copper 380 square mm intrauterine intrauterine 08/15/23 02/19/24 device (ParaGard T 380A) Previous Rx's Medication Instructions Recorded topiramate 50 mg tablet 50 mg PO BEDTIME #30 tabs 01/15/24 eletriptan 20 mg tablet (Relpax) See Rx Instructions PO .COMPLEX 02/08/24 #30 tabs amoxicillin 875 mg tablet 875 mg PO BID dental infection 7 03/15/24 days #14 tabs Allergies Allergy/AdvReac Type Severity Reaction Status Date / Time arboleda flavor Allergy Intermediate Hives Verified 03/15/24 10:19 Patient History Medical History Sebaceous cyst of breast Migraine headache with aura Menorrhagia Macromastia History of pre-eclampsia IBS (irritable bowel syndrome) GI bleed Aspergers' syndrome (~2010) ADHD Depression Irritable bowel syndrome (IBS) Surgical History Hx of cholecystectomy (12/11/22) Anesthesia H/O colonoscopy H/O endoscopy H/O neck surgery [place] teeth extracted Family History Mother Diabetes mellitus Skin cancer, basal cell Cholecystitis Grandmother Cholecystitis Stroke Grandmother Colon cancer Grandfather Diabetes mellitus Heart disease Grandfather Heart disease Myocardial infarction tobacco type: cigarettes alcohol intake frequency: holidays/special occasions only Substance Use Type: marijuana Exam Narrative Exam Narrative: GENERAL: Well-developed patient, in mild distress. HEAD: Atraumatic. Normocephalic. EYES: Pupils equal round and reactive. Extraocular motions intact. No scleral icterus. No injection or drainage. ENT: Nose without bleeding, purulent drainage. Throat without erythema, tonsillar hypertrophy or exudate. Airway patent. NECK: Trachea midline. Non tender CARDIOVASCULAR: Regular rate and rhythm without murmurs, gallops, or rubs. RESPIRATORY: Clear to auscultation. Breath sounds equal bilaterally. No wheezes, rales, or rhonchi. Genitourinary: Left lower vaginal mucosal subcentimeter wound appears closed, with some tenderness in surrounding swelling, slight bleeding non pulsatile at previous wound site, with scant pressure there does seem to be some expression of white yellow fluid, no catheter in place (patient had old word catheter in a small clear bag). No swelling or tenderness to 10:00 a.m. and 2:00 a.m. Bartholin's areas. Mild labial induration left lower vulva labia majora. No mons pubis or vulvar follicular external skin swelling or redness. GASTROINTESTINAL: Abdomen soft, non-tender, nondistended. EXTREMITIES: No edema or joint tenderness. BACK: Nontender without deformity or crepitance. No flank tenderness. NEURO: AOx3. SKIN: No rash or erythema of visible areas Initial Vital Signs Initial Vital Signs: Vital Signs Temperature 98.5 F 03/15/24 10:14 Pulse Rate 89 03/15/24 10:14 Respiratory Rate 15 03/15/24 10:14 Blood Pressure 136/75 03/15/24 10:14 Pulse Oximetry 100 03/15/24 10:14 Oxygen Delivery Method Room Air 03/15/24 10:14 Course Orders Ordered: ED Orders 03/15/24 12:10 Wound Culture and Gram Stain Stat Discontinued Medications Amoxicillin/Clavulanate Potassium (Amoxicillin/Clav 875/125 Mg) 1 tab PO NOW ONE Stop: 03/15/24 12:13 Last Admin: 03/15/24 12:15 Dose: 1 tab Documented By: Ketorolac Tromethamine (Ketorolac 30 Mg/Ml Vial) 30 mg IM NOW ONE Stop: 03/15/24 11:17 Last Admin: 03/15/24 11:20 Dose: 30 mg Documented By: Vital Signs Vital signs: Vital Signs - 8 hr 03/15/24 10:14 03/15/24 12:24 Temperature 98.5 F Pulse Rate 89 80 Respiratory Rate 15 14 Blood Pressure 136/75 112/67 Pulse Oximetry 100 100 Oxygen Delivery Method Room Air Room Air MDM - Female Genitourinary MDM Narrative Medical decision making narrative: 28-year-old female with recent I and D of left labial vulvar abscess inferior position on 02/10/2024, saw gynecology Dr. Aguayo yesterday for Word catheter placed with 1 cc balloon volume only. This fell out earlier today without manipulation. On exam there is a small inferior wound, some tenderness and slight swelling, IM Toradol, local injection of 1% lidocaine with epinephrine approximately 2.5 cc, opened superficial closed wound with curved hemostat, scant amount of purulent fluid, wound culture sent. New Word catheter placement attempted, again with 1cc fluid that extruded from the wound space and fell out easily. I did not attempt to widen the space, as I did not want to create a false tract deeper soft tissue infection. Will contact Gynecology, it seems that the spaces to small to accommodate a Word catheter at this time. Case discussed with ObGyn Dr. Garcia on-call, agrees with new course of antibiotic Augmentin, follow up with Dr. Aguayo on Sunday, agrees with no further attempts at packing/catheter placement at this time PO Augmentin first dose now, Rx sent to pharmacy for 7 day course, follow up with Gynecology on Sunday Dr. Aguayo. Discussed return precautions Discharge Plan Departure Patient Disposition: Home Clinical Impression: Abscess of vagina Activity Restrictions/Additional Instructions: Recurrent left vaginal infections, prior incision and drainage procedure, then placement of word catheter by your pediatric physical therapy assistant Dr. Aguayo yesterday, which bilateral today. The left-sided wound was opened with some purulent pus-like fluid, wound culture was sent. A new balloon word catheter was attempted to be placed, but would not stay in place even with just 1 cc insufflation, the space seems too small at this time to accommodate a word catheter. Case discussed with cross covering gynecology Dr. Garcia, who agrees with starting antibiotics new course with Augmentin, follow up with Dr. Aguayo on Sunday in clinic. Ret urn earlier to this/nearest emergency department for any change worsening symptoms or any concerns prior Prescriptions: New amoxicillin 875 mg tablet 875 mg PO BID 7 Days Qty: 14 0RF No Action topiramate 50 mg tablet 50 mg PO BEDTIME Qty: 30 2RF eletriptan [Relpax] 20 mg tablet See Rx Instructions PO .COMPLEX Qty: 30 1RF Rx Instructions: take 1 tab at onset of headache; if no relief may repeat 1 tab after at least 2 hrs; max = 4 tabs/24 hr PO ParaGard T 380A 380 square mm intrauterine device intrauterine Referrals: Rolo Suazo DO [Primary Care Provider] - Christian Aguayo MD [Physician] - Stand Alone Forms: Patient Portal/API
[2024-03-15] MEDS: KETOROLAC 30 MG/ML VIAL IM (11:20)
[2024-03-15] MEDS: LIDOCAINE 1% W/EPI 20 ML (12:08)
[2024-03-15] MEDS: AMOXICILLIN/CLAV 875/125 MG 1 TAB PO (12:15)
[2024-03-15 12:24] VITALS: BP 112/67; PULSE 80; RESP 14; O2SAT 100
== END 2024-03-15 12:24 | disposition home or self-care (01) ==
PROVIDERS: Emergency Provider Emergency Medicine; PCP Family Medicine
DX: N76.4 Abscess of vulva (principal)
CPT/HCPCS: 56405; 87070; 87075; 87077; 87205; 96372; 99283; J1885

== ENCOUNTER → 2024-04-23 09:46 | Outpatient (CLI) | payer OTHER, MEDICAID, SELFPAY ==
[2022-12-23 16:00] VITALS: BMI 39.9
[2024-04-23 11:59] LABS: Appearance Urine UA CLEAR; Bilirubin Urine UA NEGATIVE (NEGATIVE); Color Urine UA YELLOW; Glucose Urine UA NEGATIVE (Negative); Ketones Urine UA NEGATIVE (NEGATIVE); Leukocyte Esterase Urine UA NEGATIVE (NEGATIVE); Nitrite Urine UA NEGATIVE (Negative); Occult Blood Urine UA NEGATIVE (Negative); Protein Urine UA NEGATIVE (Negative); Specific Gravity Urine UA 1.025 (1.000-1.035)
[2024-04-23 12:06] LABS: Bacteria Urine Occasional (0-1); Culture Indicated Urine Cult Not Indicated; RBC Urine 0-1/HPF (0-5/HPF); Squamous Epithelial Cell Urine 5-10 /HPF (0-5/HPF); Urine Volume 10mL (spun); WBC Urine 0-1/HPF (0-5/HPF)
== END ==
PROVIDERS: PCP Family Medicine; Referring Provider Obstetrics & Gynecology; Visit Provider Obstetrics & Gynecology
DX: R30.0 Dysuria (principal); R31.9 Hematuria, unspecified
CPT/HCPCS: 81001

== ENCOUNTER 2024-07-17 05:59 | Day surgery (SDC) | payer OTHER, MEDICAID, SELFPAY ==
[2022-12-23 16:00] VITALS: BMI 39.9
[2024-07-16 11:56] VITALS: BMI 68.3
[2024-07-17 07:06] VITALS: BP 114/74; PULSE 75; RESP 16; TEMP 36.5; O2SAT 98; BMI 31.0
[2024-07-17] MEDS: LACTATED RINGERS 1,000 ML 42 ML IV (07:12)
[2024-07-17] MEDS: ACETAMINOPHEN 325 MG TABLET 975 MG PO (07:23)
--- NOTE | 2024-07-17 07:25 | PM.PREOP ---
Pre-operative Note COVID-19 COVID-19 status: Not tested Interval Note History & Physical reviewed/Exam performed by Physician: Yes Changes to H&P: No
[2024-07-17] MEDS: SCOPOLAMINE 1 PATCH TOP (07:48)
--- NOTE | 2024-07-17 08:00 | SUR.OPER ---
Lithotomy on padded OR bed, head on pillow, arms secured on padded arm boards at <90 degrees abduction. Legs secured in padded yellow fins stirrups.
[2024-07-17] MEDS: BUPIVACAINE 0.5% W/ EPI (PF) 30 ML VIAL INJ (08:04)
[2024-07-17 08:26] VITALS: BP 112/62; PULSE 83; RESP 14; TEMP 36.2; O2SAT 98
[2024-07-17 08:31] VITALS: BP 124/77; PULSE 96; RESP 14; O2SAT 95
[2024-07-17 08:36] VITALS: BP 128/83; PULSE 97; RESP 12; O2SAT 96
[2024-07-17 08:37] VITALS: BP 128/83; PULSE 97; RESP 12; TEMP 36.3; O2SAT 97
--- NOTE | 2024-07-17 08:43 | PM.GYNOP.1 ---
Operative Date/Time/Diagnoses Date of procedure: 07/17/24 Time of procedure: 08:00 Pre-op diagnosis: Recurrent left Bartholin's gland abscess Post-op diagnosis: same Procedure & Clinicians Procedure: Procedures Operation Date: 07/17/24 07:45 Actual Procedure Side Surgeon chuyita Marsupialization of Bartholin's gland abscess Left Christian Aguayo MD Indications: Dulce returned 07/10/2024 with recurrent left Bartholin's gland abscess which has developed over the previous few days. It was exquisitely tender which makes sitting or walking very difficult. Under local anesthetic, a word catheter was placed again for drainage in the the patient was scheduled for urgent Bartholin's gland marsupialization. She presents today for her scheduled surgery. Surgeon: Christian Aguayo Anesthesia Type: General Operative Notes Findings: Word catheter in place, left Bartholin's gland. Closure Type: primary Specimen(s): none Estimated blood loss (mL): 5 Blood products transfused: none Procedure in detail: With the patient under satisfactory general anesthesia in the modified dorsal lithotomy position, perineum vagina and lower abdomen were prepped and draped in the usual manner for vaginal surgery. A pre-surgical safety time-out was then taken in accordance with [facility] Main OR protocols. The Word catheter was identified and an elliptical incision of the skin around the base of the Word catheter was performed with monopolar cutting current and excised with small Metzenbaum scissors. At that point the capsule of the Bartholin's gland was similarly excised and the Word catheter removed. Using 3-0 Monocryl stitches, a series of 8 interrupted were placed around the circumference of the marsupialization site. The Bartholin's gland cyst itself was then irrigated and found to be intact and well attached to the skin edges at all points. The procedure was then terminated by removal of the instruments from the vagina. The patient was awakened from anesthesia and transferred to the PACU for a period of observation and recovery after having tolerated the procedure well. Complications: none Post-operative Disposition: PACU Plan for aftercare: Routine postoperative care with plans for follow-up in 2 weeks or as needed.
[2024-07-17 08:44] VITALS: BP 130/80; PULSE 86; RESP 12; O2SAT 96
[2024-07-17] MEDS: ONDANSETRON 4 MG/2 ML INJ IV (09:13)
== END 2024-07-17 09:15 | disposition home or self-care (01) ==
PROVIDERS: PCP Family Medicine; Referring Provider Obstetrics & Gynecology; Visit Provider Obstetrics & Gynecology
PROC: (CPT 56440; principal; 2024-07-17 07:45)
DX: N75.1 Abscess of Bartholin's gland (principal)
CPT/HCPCS: 56440; 81025; J1100; J1885; J2405; J2704; J3010

== ENCOUNTER 2024-08-09 10:25 | Emergency (ER) | payer OTHER, MEDICAID, SELFPAY ==
[2022-12-23 16:00] VITALS: BMI 39.9
[2024-08-09 10:56] VITALS: BP 142/72; PULSE 111; RESP 18; TEMP 36.7; O2SAT 99; BMI 30.7
--- NOTE | 2024-08-09 14:21 | ED.FEMALEGU ---
HPI - Female Genitourinary General Chief complaint: Urogenital-Female Stated complaint: Sx Site Pain/Swelling, Stitches still in Time Seen by Provider: 08/09/24 10:45 Source: patient Mode of arrival: Ambulatory History of Present Illness HPI Narrative: Patient is a 29-year-old female who had recurrent left Bartholin knee and cyst. On July 17 she had surgery to remove the Bartholin gland cyst itself. 3-0 Monocryl stitches 8 were placed. Patient states that she feels swelling pain and irritation at that site stitches have not yet dissolved. She would like the stitches out. She feels hot and sweaty. Having mild abdominal pain Related Data Home Medications Medication Instructions Recorded Confirmed copper 380 square mm intrauterine intrauterine 08/15/23 08/05/24 device (ParaGard T 380A) Previous Rx's Medication Instructions Recorded topiramate 50 mg tablet 50 mg PO BEDTIME #30 tabs 01/15/24 oxycodone 5 mg tablet 5 mg PO Q6H PRN pain #20 tabs 07/10/24 sulfamethoxazole 800 1 tab PO BID #14 tabs 07/25/24 mg-trimethoprim 160 mg tablet (Bactrim DS) Allergies Allergy/AdvReac Type Severity Reaction Status Date / Time arboleda flavor Allergy Intermediate Hives Verified 08/09/24 10:58 Patient History Medical History Abscess of left Bartholin's gland Sebaceous cyst of breast Migraine headache with aura Menorrhagia Macromastia History of pre-eclampsia IBS (irritable bowel syndrome) GI bleed Aspergers' syndrome (~2010) ADHD Depression Irritable bowel syndrome (IBS) Surgical History Hx of cholecystectomy (12/11/22) Anesthesia H/O colonoscopy H/O endoscopy H/O neck surgery [place] teeth extracted Family History Mother Diabetes mellitus Skin cancer, basal cell Cholecystitis Grandmother Cholecystitis Stroke Grandmother Colon cancer Grandfather Diabetes mellitus Heart disease Grandfather Heart disease Myocardial infarction tobacco type: cigarettes alcohol intake frequency: holidays/special occasions only Substance Use Type: marijuana Exam Initial Vital Signs Initial Vital Signs: Vital Signs Temperature 98.1 F 08/09/24 10:56 Pulse Rate 111 H 08/09/24 10:56 Respiratory Rate 18 08/09/24 10:56 Blood Pressure 142/72 H 08/09/24 10:56 Pulse Oximetry 99 08/09/24 10:56 Oxygen Delivery Method Room Air 08/09/24 10:56 GENERAL: Alert well-appearing 29-year-old and in no acute distress. HEENT: Head atraumatic,EOMI, pupils reactive, CARDIOVASCULAR: Peripheral pulses intact no cyanosis RESPIRATORY: No respiratory distress speaks in full sentences i. ABDOMEN: Soft, nontender. Normoactive bowel sounds all 4 quadrants. No guarding or rebound. PELVIC: External genitalia is normal, incision site noted anterior vaginal wall sutures are visible. Is not swollen there is no labial swelling there is no erythema there is no drainage there has no gross vaginal discharge. Wound is healing. EXTREMITIES: Normal range of motion, no clubbing or edema. Neurovascularly intact NEUROLOGICAL: Alert and oriented x4.Normal gait and speech. SKIN: Warm, dry, no laceration, no petechiae, no rashes or lesions. Course Orders Ordered: ED Orders 08/09/24 12:18 Test Urine Stat UA Complete [Urinalysis and Microscopic] Stat Vital Signs Vital signs: Vital Signs - 8 hr 08/09/24 10:56 08/09/24 15:39 Temperature 98.1 F Pulse Rate 111 H 91 H Respiratory Rate 18 17 Blood Pressure 142/72 H 131/75 Pulse Oximetry 99 99 Oxygen Delivery Method Room Air Room Air MDM - Female Genitourinary Lab Data Labs: Lab Results 08/09/24 Range/Units 12:18 Urine Color Yellow Urine Appearance Clear Urine pH 5.5 (4.5-8.0) Ur Specific [place] 1.025 (1.000-1.035) Urine Protein Negative (Negative) Urine Glucose (UA) Negative (Negative) g/dL Urine Ketones Negative (NEGATIVE) Urine Occult Blood Negative (Negative) Urine Nitrate Negative (Negative) Urine Bilirubin Negative (NEGATIVE) Urine Urobilinogen 0.2 (0.2) E.U./dL Ur Leukocyte Esterase Negative (NEGATIVE) Urine RBC None seen (0-5/HPF) Urine WBC None seen (0-5/HPF) Ur Squamous Epith Cells 1-5 /hpf (0-5/HPF) Urine Bacteria None seen (None) Ur Culture Indicated? Cult not indicated Vol Urine Centrifuged 10ml (spun) Urine Test Negative (Negative) MDM Narrative Medical decision making narrative: 29-year-old female presenting today with actual want for suture removal. She is complaining of some irritation in her vaginal area. Surgery was July 17 it is August 09 almost 1 month after it appears that some sutures have dissolved I was able to remove 4 of them, I do not see anymore to remove. There is no significant swelling erythema or drainage appreciated on exam. Urinalysis is negative for infection and . At this time no need for antibiotics. Discharge Plan Departure Patient Disposition: Home Clinical Impression: Vaginal irritation, Encounter for removal of sutures Activity Restrictions/Additional Instructions: *You have been diagnosed with vaginal irritation *What to do: You had 4 sutures removed today others look like they have dissolved healing looks good. No evidence of bladder infection *Continue to take medications as directed *Follow up with your primary care provider in 2-3 days or call [phone] *Return to ER if you should have any new, worsening or concerning symptoms Prescriptions: No Action topiramate 50 mg tablet 50 mg PO BEDTIME Qty: 30 2RF sulfamethoxazole-trimethoprim [Bactrim DS] 800-160 mg tablet 1 tab PO BID Qty: 14 0RF ParaGard T 380A 380 square mm intrauterine device intrauterine oxycodone 5 mg tablet 5 mg PO Q6H PRN (Reason: pain) Qty: 20 0RF Referrals: Rolo Suazo DO [Primary Care Provider] - Stand Alone Forms: Patient Portal/API
--- NOTE | 2024-08-09 14:53 | PC.NURSE ---
Assisted Dr Parmar with vaginal surture removal. Pt tolerated well.
[2024-08-09 15:17] LABS: Appearance Urine UA CLEAR; Bilirubin Urine UA NEGATIVE (NEGATIVE); Color Urine UA YELLOW; Glucose Urine UA NEGATIVE (Negative); Ketones Urine UA NEGATIVE (NEGATIVE); Leukocyte Esterase Urine UA NEGATIVE (NEGATIVE); Nitrite Urine UA NEGATIVE (Negative); Occult Blood Urine UA NEGATIVE (Negative); Protein Urine UA NEGATIVE (Negative); Specific Gravity Urine UA 1.025 (1.000-1.035); Urobilinogen Urine UA 0.2 E.U./dL (0.2); pH Urine UA 5.5 (4.5-8.0)
[2024-08-09 15:19] LABS: Pregnancy Test Urine Negative (Negative)
[2024-08-09 15:22] LABS: Bacteria Urine None Seen; Culture Indicated Urine Cult Not Indicated; RBC Urine None Seen (0-5/HPF); Squamous Epithelial Cell Urine 1-5 /HPF (0-5/HPF); Urine Volume 10mL (spun); WBC Urine None Seen (0-5/HPF)
[2024-08-09 15:39] VITALS: BP 131/75; PULSE 91; RESP 17; O2SAT 99
== END 2024-08-09 15:39 | disposition home or self-care (01) ==
PROVIDERS: Emergency Provider Emergency Medicine; PCP Family Medicine
DX: N89.8 Other specified noninflammatory disorders of vagina (principal)
CPT/HCPCS: 81001; 81025; 99281; 99282

== ENCOUNTER → 2024-09-04 10:58 | Outpatient (CLI) | payer OTHER, MEDICAID, SELFPAY ==
[2022-12-23 16:00] VITALS: BMI 39.9
--- NOTE | 2024-09-04 11:00 | DI.RAD.S_ITS ---
PROCEDURE: XR HUMERUS LT 2V INDICATIONS: Possible broken Nexplanon TECHNIQUE: 2 views of the humerus were acquired. COMPARISON: None. FINDINGS: Bones: No acute displaced fracture or dislocation. Soft tissues: Linear opacity is seen in the subcutaneous tissues adjacent to the distal humerus. This appears to be in 1 piece. IMPRESSION: No fragmentation of the linear opacity in the subcutaneous tissues, likely the reported control device. Dictated by: Ravinder Ansari M.D. on 09/04/2024 at 12:52 Approved by: Ravinder Ansari M.D. on 09/04/2024 at 12:53
== END ==
PROVIDERS: PCP Family Medicine; Referring Provider Obstetrics & Gynecology; Visit Provider Obstetrics & Gynecology
DX: Z30.46 Encounter for surveillance of implantable subdermal contraceptive (principal)
CPT/HCPCS: 73060

== ENCOUNTER → 2024-10-08 09:54 | Outpatient (CLI) | payer OTHER, SELFPAY ==
[2022-12-23 16:00] VITALS: BMI 39.9
[2024-10-08 10:25] LABS: Hemoglobin A1C% w Est Avg Glu 4.9 % (4.0-6.0)
[2024-10-08 10:27] LABS: Add Manual Diff / Slide Review NO; Basophils Absolute Auto 0 /uL (0-100); Basophils Percent Auto 0.6 % (0-2); Eosinophils Absolute Auto 100 /uL (0-450); Hematocrit 43.7 % (36-46); Hemoglobin 14.8 g/dL (12.0-16.0); Lymphocytes Absolute Auto 1600 /uL (1100-4500); Lymphocytes Percent Auto 23.8 % (25-40); Mean Corpuscular HGB Conc 33.8 % (30-36); Mean Corpuscular Hemoglobin 30.1 PG (26-34); Mean Corpuscular Volume 89.1 fL (80-100); Monocytes Absolute Auto 700 /uL (0-900); Monocytes Percent Auto 9.8 % (3-14); Neutrophils Absolute Auto 4400 /uL (1500-7000); Neutrophils Percent Auto 64.8 % (50-75); Platelet Count 284 X10^3/uL (150-400); Red Cell Distribution Width 13.3 % (11.6-14.8); White Blood Cell Count 6.7 X10^3/uL (4.5-11.0)
[2024-10-08 11:06] LABS: Alanine Aminotransferase 30 IU/L (<35); Albumin 4.8 g/dL (3.5-5.0); Albumin Globulin Ratio 1.5 (1.0-2.8); Alkaline Phosphatase 108 U/L (38-126); Aspartate Aminotransferase 39 IU/L (14-36); BUN Creatinine Ratio 10.9 (6-22); Bilirubin Total 1.4 mg/dL (0.2-1.3); Blood Urea Nitrogen 11 mg/dL (7-17); Calcium 9.6 mg/dL (8.4-10.2); Carbon Dioxide 22 mmol/L (22-32); Chloride 108 mmol/L (98-107); Estimated Glomerular Filt Rate > 60 mL/min (>60); Globulin 3.1 g/dL (1.7-4.1); Glucose 97 mg/dL (70-100); HEMOLYSIS 25 (0-50); Potassium 4.2 mmol/L (3.4-5.1); Sodium 140 mmol/L (137-145); Total Protein 7.9 g/dL (6.3-8.2)
[2024-10-08 11:24] LABS: Free T4, Direct Thyroxine 0.94 ng/dL (0.78-2.19)
[2024-10-08 11:38] LABS: Thyroid Stimulating Hormone 2.62 uIU/mL (0.47-4.68)
== END ==
PROVIDERS: PCP Family Medicine; Referring Provider Family Medicine; Visit Provider Family Medicine
DX: R10.9 Unspecified abdominal pain (principal); K58.9 Irritable bowel syndrome, unspecified; K52.9 Noninfective gastroenteritis and colitis, unspecified
CPT/HCPCS: 36415; 80053; 82784; 83036; 83516; 84439; 84443; 85025; 86003

== ENCOUNTER → 2024-12-19 14:53 | Outpatient (CLI) | payer OTHER, SELFPAY ==
[2022-12-23 16:00] VITALS: BMI 39.9
[2024-12-19 15:58] LABS: HCG Quantitative /Beta subunit < 2.39 mIU/mL
== END ==
PROVIDERS: PCP Family Medicine; Referring Provider Obstetrics & Gynecology; Visit Provider Obstetrics & Gynecology
DX: N92.6 Irregular menstruation, unspecified (principal)
CPT/HCPCS: 36415; 84702

== ENCOUNTER → 2025-05-14 07:10 | Outpatient (CLI) | payer OTHER, SELFPAY ==
[2022-12-23 16:00] VITALS: BMI 39.9
== END ==
PROVIDERS: PCP Family Medicine; Visit Provider Physician Assistant
DX: R30.0 Dysuria (principal)
CPT/HCPCS: 87086

== ENCOUNTER 2025-05-14 07:33 | Emergency (ER) | payer OTHER, SELFPAY ==
[2022-12-23 16:00] VITALS: BMI 39.9
[2025-05-14] VITALS (9 sets, daily range): BP systolic 99–125; BP diastolic 54–85; PULSE 62–103; RESP 14–16; TEMP 36.9; O2SAT 98–100; BMI 31.6
[2025-05-14 08:06] LABS: Add Manual Diff / Slide Review NO; Hematocrit 41.5 % (36-46); Hemoglobin 14.6 g/dL (12.0-16.0); Lymphocytes Absolute Auto 2000 /uL (1100-4500); Mean Corpuscular HGB Conc 35.2 % (30-36); Mean Corpuscular Hemoglobin 30.9 PG (26-34); Mean Corpuscular Volume 87.7 fL (80-100); Platelet Count 268 X10^3/uL (150-400)
[2025-05-14 08:13] LABS: Alanine Aminotransferase 22 IU/L (<35); Albumin 4.9 g/dL (3.5-5.0); Albumin Globulin Ratio 1.4 (1.0-2.8); Alkaline Phosphatase 96 U/L (38-126); Blood Urea Nitrogen 11 mg/dL (7-17); Calcium 9.4 mg/dL (8.4-10.2); Carbon Dioxide 25 mmol/L (22-32); Chloride 102 mmol/L (98-107); Estimated Glomerular Filt Rate > 60 mL/min (>60); Globulin 3.4 g/dL (1.7-4.1); Glucose 109 mg/dL (70-99); HEMOLYSIS < 15 (0-50); Lipase 62 U/L (23-300); Potassium 4.1 mmol/L (3.4-5.1); Sodium 137 mmol/L (137-145); Total Protein 8.3 g/dL (6.3-8.2)
--- NOTE | 2025-05-14 08:13 | DI.CT.S_ITS ---
PROCEDURE: CT KIDNEY URETER BLADDER (KUB) INDICATIONS: right flank pain TECHNIQUE: Axial sections were acquired from the lung bases to the pubic symphysis. Coronal and sagittal reformats were performed. For radiation dose reduction, the following was used: automated exposure control, adjustment of mA and/or kV according to patient size. COMPARISON: None. FINDINGS: Image quality: Diagnostic. Lower Chest: No significant findings. URINARY: Right Kidney: No stones or hydronephrosis. Right Ureter: No hydroureter. Left Kidney: No stones or hydronephrosis. Left Ureter: No hydroureter. Bladder: Normal wall thickness. No stones. ABDOMEN: Liver: No contour-deforming solid mass. Gallbladder: Absent Biliary ducts: No biliary dilation. Pancreas: No ductal dilation. Spleen: Size is within normal limits. Adrenal Glands: No adrenal nodules. Stomach and Bowel: Normal colonic caliber, without significant wall thickening. Remote appendectomy. Peritoneum: No abnormal intraperitoneal fluid. No free air. Ventral Wall: No hernia. Abdominal Nodes: No enlarged retroperitoneal or mesenteric lymph nodes. Vessels: Aorta and inferior vena cava are normal in size. PELVIS: Pelvic Organs: Unremarkable. Pelvic Nodes: Unremarkable. Miscellaneous: No inguinal hernias are seen. Bones: Unremarkable. IMPRESSION: No obstructing stones or hydronephrosis. No acute abdominal process. Remote cholecystectomy and appendectomy. Dictated by: Erich Gonzales M.D. on 05/14/2025 at 8:47 Approved by: Erich Gonzales M.D. on 05/14/2025 at 8:49
[2025-05-14 08:18] LABS: Culture Indicated Urine Specimen Cultured
[2025-05-14] MEDS: SODIUM CHLORIDE 0.9% 1,000 ML 1000 ML IV (08:37)
[2025-05-14] MEDS: KETOROLAC 30 MG/ML VIAL 15 MG IV (08:37)
--- NOTE | 2025-05-14 10:18 | ED.GENADULT ---
HPI - General Adult General Chief complaint: Urogenital-Female Stated complaint: peeing blood sent from [facility] Time Seen by Provider: 05/14/25 07:45 History of Present Illness HPI narrative: 30-year-old woman who complains of mild dysuria with a past 3 days, she felt that it was related to her new medication (amitriptyline) that has been causing some mild urinary retention. This morning increasing fatigue, hematuria, bladder pain and right flank pain. She does have a history of kidney stones, pyelonephritis has already had her gallbladder and appendix removed. Does not describe any fevers or chills. No chest pain or palpitations Related Data Home Medications ?Medication ?Instructions ?Recorded ?Confirmed copper 380 square mm intrauterine intrauterine 08/15/23 05/14/25 device (ParaGard T 380A) amitriptyline 25 mg tablet 25 mg PO ONCE PM 05/14/25 05/14/25 Previous Rx's ?Medication ?Instructions ?Recorded topiramate 50 mg tablet 50 mg PO BEDTIME #30 tabs 01/15/24 sulfamethoxazole 400 1 tab PO BID #10 tabs 05/14/25 mg-trimethoprim 80 mg tablet (Bactrim) sulfamethoxazole 800 1 tab PO BID #10 tabs 05/14/25 mg-trimethoprim 160 mg tablet (Bactrim DS) Allergies Allergy/AdvReac Type Severity Reaction Status Date / Time arboleda flavor Allergy Intermediate Hives Verified 05/14/25 07:06 Review of Systems Review of Systems Narrative: Pertinent positive and negative findings as per HPI Patient History Medical History Abscess of left Bartholin's gland Sebaceous cyst of breast Migraine headache with aura Menorrhagia Macromastia History of pre-eclampsia IBS (irritable bowel syndrome) GI bleed Aspergers' syndrome (~2010) ADHD Depression Irritable bowel syndrome (IBS) Surgical History Hx of cholecystectomy (12/11/22) Anesthesia H/O colonoscopy H/O endoscopy H/O neck surgery [place] teeth extracted Family History Mother Diabetes mellitus Skin cancer, basal cell Cholecystitis Grandmother Cholecystitis Stroke Grandmother Colon cancer Grandfather Diabetes mellitus Heart disease Grandfather Heart disease Myocardial infarction Social History marital status: unmarried,single number of children: 0 household members: significant other, family and children lives independently: Yes housing: apartment pets and animals: No education level: high school occupational status: unemployed current occupational exposures/hazards: No special velia needs: No seatbelt use: always water heater temp set < 120 deg: No (water tank incapable of being adjusted below 125.) working smoke detector in home: Yes fire extinguisher in home: Yes carbon monox detector in home: Yes firearms in home: Yes firearms unloaded and locked: No (planning to buy a safe soon) do you feel safe at home: Yes second hand exposure: Yes (MJ smoke) alcohol intake: former substance use type: marijuana during the past year weight has: increased > 10 lbs well-balanced diet: rarely or never daily servings fruits/ve-1 caffeine: No Type(s) of exercise: walking frequency: 1-2 times per week tobacco type: cigarettes alcohol intake frequency: holidays/special occasions only Exam Initial Vital Signs Initial Vital Signs: Vital Signs Temperature 98.5 F 05/14/25 07:40 Pulse Rate 99 H 05/14/25 07:40 Respiratory Rate 16 05/14/25 07:40 Blood Pressure 125/85 05/14/25 07:40 Pulse Oximetry 98 05/14/25 07:40 Oxygen Delivery Method Room Air 05/14/25 07:40 General: Appears uncomfortable but in no acute distress HEENT: Dry mucous membranes, normal sclera with reactive pupils, Respiratory: Lungs are clear to auscultation, no wheezing no rales no rhonchi. Full and symmetrical air movement Cardiac: Regular rate and rhythm no murmurs no bruits Abdomen: Soft, mild tenderness in the lower abdomen and flanks, no acute tenderness Skin: Warm and dry, no rashes Neurologic: Grossly neurologically intact with no obvious asymmetries or abnormalities Extremities: No trauma, well perfused Psych: Cooperative, appropriate insight and affect Course Orders Ordered: ED Orders 05/14/25 07:12 Test Urine Stat Urine Microscopic Stat 05/14/25 07:40 Complete Blood Count AUTO DIFF Stat Comprehensive Metabolic Panel Stat Lipase Stat 05/14/25 08:13 CT kidney ureter bladder (KUB) Stat Ondansetron HCl (Ondansetron 4 Mg/2 Ml Inj) 4 mg IV NOW PRN PRN Reason: Nausea And Vomiting Ondansetron HCl (Ondansetron 4 Mg Odt) 4 mg PO NOW PRN PRN Reason: Nausea And Vomiting Ondansetron HCl (Ondansetron 4 Mg/2 Ml Inj) 4 mg IV NOW PRN PRN Reason: Nausea And Vomiting Discontinued Medications Sodium Chloride (Normal Saline 0.9%) 1,000 mls @ 1,000 mls/hr IV BOLUS ONE Stop: 05/14/25 09:12 Last Admin: 05/14/25 08:37 Dose: 1,000 mls/hr Documented By: STANLEY Ketorolac Tromethamine (Ketorolac 30 Mg/Ml Vial) 15 mg IV NOW ONE Stop: 05/14/25 08:14 Last Admin: 05/14/25 08:37 Dose: 15 mg Documented By: STANLEY Vital Signs Vital signs: Vital Signs - 8 hr 05/14/25 07:40 Temperature 98.5 F Pulse Rate 99 H Respiratory Rate 16 Blood Pressure 125/85 Pulse Oximetry 98 Oxygen Delivery Method Room Air Medical Decision Making Lab Data 05/14/25 07:40 05/14/25 07:40 Labs: Lab Results 05/14/25 05/14/25 Range/Units 07:12 07:40 WBC 7.7 (4.5-11.0) X10^3/uL RBC 4.73 (4.0-5.2) X10^6/uL Hgb 14.6 (12.0-16.0) g/dL Hct 41.5 (36-46) % MCV 87.7 (80-100) fL MCH 30.9 (26-34) PG MCHC 35.2 (30-36) % RDW 12.9 (11.6-14.8) % Plt Count 268 (150-400) X10^3/uL Neut % (Auto) 61.4 (50-75) % Lymph % (Auto) 26.7 (25-40) % [place] % (Auto) 8.8 (3-14) % Eos % (Auto) 2.4 (2-4) % Baso % (Auto) 0.7 (0-2) % Neut # (Auto) 4700 (8165-8610) /uL Lymph # (Auto) 2000 (8203-1995) /uL [place] # (Auto) 700 (0-900) /uL Eos # (Auto) 200 (0-450) /uL Baso # (Auto) 100 (0-100) /uL Sodium 137 (137-145) mmol/L Potassium 4.1 (3.4-5.1) mmol/L Chloride 102 (98-107) mmol/L Carbon Dioxide 25 (22-32) mmol/L BUN 11 (7-17) mg/dL Creatinine 0.99 (0.52-1.04) mg/dL Estimated GFR > 60 (>60) mL/min BUN/Creatinine Ratio 11.1 (6-22) Glucose 109 H (70-99) mg/dL Calcium 9.4 (8.4-10.2) mg/dL Total Bilirubin 1.2 (0.2-1.3) mg/dL AST 36 (14-36) IU/L ALT 22 (<35) IU/L Alkaline Phosphatase 96 (38-126) U/L Total Protein 8.3 H (6.3-8.2) g/dL Albumin 4.9 (3.5-5.0) g/dL Globulin 3.4 (1.7-4.1) g/dL Albumin/Globulin Ratio 1.4 (1.0-2.8) Lipase 62 (23-300) U/L Urine RBC 1-5/hpf (0-5/HPF) Urine WBC 1-5/hpf (0-5/HPF) Ur Squamous Epith Cells 1-5 /hpf (0-5/HPF) Urine Bacteria None seen (None) Ur Culture Indicated? Specimen cultured Vol Urine Centrifuged 10ml (spun) Urine Test Negative (Negative) Imaging Data CT scan - abdomen/pelvis: Radiologist's Impression: PROCEDURE: CT KIDNEY URETER BLADDER (KUB) INDICATIONS: right flank pain TECHNIQUE: Axial sections were acquired from the lung bases to the pubic symphysis. Coronal and sagittal reformats were performed. For radiation dose reduction, the following was used: automated exposure control, adjustment of mA and/or kV according to patient size. COMPARISON: None. FINDINGS: Image quality: Diagnostic. Lower Chest: No significant findings. URINARY: Right Kidney: No stones or hydronephrosis. Right Ureter: No hydroureter. Left Kidney: No stones or hydronephrosis. Left Ureter: No hydroureter. Bladder: Normal wall thickness. No stones. ABDOMEN: Liver: No contour-deforming solid mass. Gallbladder: Absent Biliary ducts: No biliary dilation. Pancreas: No ductal dilation. Spleen: Size is within normal limits. Adrenal Glands: No adrenal nodules. Stomach and Bowel: Normal colonic caliber, without significant wall thickening. Remote appendectomy. Peritoneum: No abnormal intraperitoneal fluid. No free air. Ventral Wall: No hernia. Abdominal Nodes: No enlarged retroperitoneal or mesenteric lymph nodes. Vessels: Aorta and inferior vena cava are normal in size. PELVIS: Pelvic Organs: Unremarkable. Pelvic Nodes: Unremarkable. Miscellaneous: No inguinal hernias are seen. Bones: Unremarkable. IMPRESSION: No obstructing stones or hydronephrosis. No acute abdominal process. Remote cholecystectomy and appendectomy. Dictated by: Erich Gonzales M.D. on 05/14/2025 at 8:47 MDM Narrative Medical decision making narrative: CC: General malaise, abdominal pain, flank pain Complicating co-morbidities: Noting increasing urinary hesitancy after starting amitriptyline, prior history of kidney stones Data collected from: patient Medical records reviewed: Primary care notes reviewed Differential considered: Urinary tract infection, appendicitis, kidney stone, pyelonephritis doubt skelp processor involvement based on description and location of pain Exam documented above, pertinent findings include: General malaise, diffuse tenderness in the lower abdomen pelvis right side without localizing symptoms. Lab Test results independently reviewed as above. Pertinent findings: Urine has red cells leukocyte esterase no white cells urine has been cultured CBC is unremarkable Chemistries reassuring with normal renal function Imaging studies independently reviewed: CT scan is done due to the acute abdominal pain. No significant findings specifically bowel obstruction, appendicitis, hydronephrosis, CT findings for pyelonephritis discussion of pelvic organs is unremarkable Treatments: Fluids, Toradol, 2 g of ceftriaxone Re-evaluations: Patient is feeling better after fluids and Toradol but still has some abdominal pain. She does have a Nexplanon in place Discussion: 30-year-old woman with low abdominal pain. She does have a history of irritable bowel syndrome that has been doing quite well with the amitriptyline. She is not significantly constipated. She may be developing a urinary tract infection and we will be treated as such with concerns for developing pyelonephritis. No evidence of obvious urinary obstruction, kidney stones, my suspicion for gynecologic concerns is low and her urine test is negative. She is not complaining of vaginal discharge, has had no new recent sexual partners and no history of STIs, concern for pelvic inflammatory disease is minimal. She has had her appendix already removed, there was no bowel inflammation or significant constipation appreciated. She is feeling better after fluids and Toradol. She is given 2 g of ceftriaxone and will be discharged home with Septra. In 2022 she had a urine sample that grew out Citrobacter resistant to cefazolin sensitive to Septra will await cultures to see if any antibiotic changes are required. She is still more tender than I would expect for such negative CT findings lab findings and unremarkable urine. Reviewed this concern with her in detail. Discussed the fact that sometimes bodies simply need to ?declare themselves?. I suggested that she have a low threshold for returning to the ER for further evaluation if she is not improving Discharge Plan Departure Patient Disposition: Home Clinical Impression: Pyelonephritis Urinary tract infection Qualifiers: Urinary tract infection type: acute cystitis Hematuria presence: with hematuria Qualified Code(s): N30.01 - Acute cystitis with hematuria Instructions: DI for Kidney Infection Activity Restrictions/Additional Instructions: Thank you for coming in today You look like you are quite uncomfortable however your workup was very reassuring. I am seeing no signs of overwhelming infection, sepsis, kidney stones, significant kidney abnormalities on your CT scan. The CT scan does not show any bowel problems, no bowel obstruction, you have already had your appendix removed. There was no suggestion that your uterus or ovaries or particularly inflamed. All of this is very good however it does not explain why you are feeling so poorly. The Toradol that we gave you in the emergency department as long as well as fluids did seem to help. I have also given you 2 g of ceftriaxone which isn't IV antibiotic and a prescription for 5 additional days of Bactrim, another antibiotic to treat both urinary tract and kidney infection This prescription was electronically transmitted to [facility] If your symptoms are not improving you do need to return to the emergency department. Sometimes it takes things changing and localizing to point to the exact place where we need to look defined the most perfect diagnosis Using 400 mg of ibuprofen (2 [id number] pills) and 1 Tylenol every 6 hours can be very helpful in controlling pain. If you find that you are getting worse or develop any new symptoms, please feel free to return to the emergency department for further evaluation. Prescriptions: New sulfamethoxazole-trimethoprim [Bactrim DS] 800-160 mg tablet 1 tab PO BID Qty: 10 0RF sulfamethoxazole-trimethoprim [Bactrim] 400-80 mg tablet 1 tab PO BID Qty: 10 0RF No Action amitriptyline 25 mg tablet 25 mg PO ONCE PM topiramate 50 mg tablet 50 mg PO BEDTIME Qty: 30 2RF ParaGard T 380A 380 square mm intrauterine device intrauterine Referrals: Rolo Suazo, [Primary Care Provider, Family Practice] Stand Alone Forms: Patient Portal/API
[2025-05-14] MEDS: cefTRIAXone 2,000 MG in SODIUM CHLORIDE 0.9% 100 ML 200 MG IV (11:13)
== END 2025-05-14 11:49 | disposition home or self-care (01) ==
PROVIDERS: Emergency Provider Emergency Medicine; PCP Family Medicine
DX: N30.01 Acute cystitis with hematuria (principal); N12 Tubulo-interstitial nephritis, not specified as acute or chronic; R10.9 Unspecified abdominal pain
CPT/HCPCS: 36415; 74176; 80053; 81015; 81025; 83690; 85025; 87086; 96361; 96365; 96375; 99284; J0696; J1885

== ENCOUNTER → 2025-07-02 09:19 | Outpatient (CLI) | payer OTHER, SELFPAY ==
[2022-12-23 16:00] VITALS: BMI 39.9
--- NOTE | 2025-07-02 09:20 | DI.MRI.S_ITS ---
PROCEDURE: MR ANKLE LT WO/W CON INDICATIONS: screening TECHNIQUE: Noncontrast sagittal T1 spin echo and T2 fast spin echo with fat saturation, axial proton density fast spin echo and T2 fast spin echo with fat saturation, axial T1 spin echo with fat saturation, coronal T1 spin echo and T2 fast spin echo with fat saturation through the ankle/hindfoot. Post-contrast axial, coronal, and sagittal T1 spin echo with fat saturation through the ankle/hindfoot. COMPARISON: [facility], CR, XR ANKLE LT MIN 3V, 06/16/2025, 1:26. FINDINGS: Image quality: Excellent. Bones and joints: Nondisplaced osteochondral defect of the lateral talar dome which appears acute. Marrow edema in the medial malleolus with possible nondisplaced fracture. Marrow edema along the medial talus likely reactive. Marrow edema in the sustentaculum talus extending to the calcaneal body with possible nondisplaced fracture line. Medial structures: The posterior tibialis, flexor digitorum longus, and flexor hallucis longus tendons are intact. The posterior tibial neurovascular bundle appears normal within the tarsal tunnel, without extrinsic mass effect. Tibiospring ligament appears torn. Deep deltoid appears near completely torn. Spring ligaments appear intact. Lateral structures: Split tear peroneus brevis tendon inframalleolar portion with reconstitution distally. Peroneus longus tendon is intact. Anterior structures: The tibialis anterior, extensor hallucis longus, and extensor digitorum longus tendons appear intact. The dorsal talonavicular ligament appears intact. Posterior and plantar structures: Achilles tendon is intact. Edema along the proximal plantar fascia without discrete tear. IMPRESSION: Grade 3 anterior talofibular ligament sprain. Grade 3 calcaneofibular ligament sprain. Grade 2-3 deep deltoid ligament sprain. Grade 3 tibia spring ligament sprain. Probable nondisplaced medial malleolar fracture. Probable nondisplaced calcaneal fracture. Partial split tear peroneus brevis tendon, age indeterminate. Mild plantar fasciitis. Dictated by: Ollie Martins M.D. on 07/02/2025 at 10:29 Approved by: Ollie Martins M.D. on 07/02/2025 at 10:58
== END ==
PROVIDERS: PCP Family Medicine; Referring Provider Family Medicine; Visit Provider Family Medicine
DX: S93.492A Sprain of other ligament of left ankle, initial encounter (principal); S93.412A Sprain of calcaneofibular ligament of left ankle, initial encounter; S93.422A Sprain of deltoid ligament of left ankle, initial encounter; S96.812A Strain of other specified muscles and tendons at ankle and foot level, left foot, initial encounter; S93.409A Sprain of unspecified ligament of unspecified ankle, initial encounter; S96.919A Strain of unspecified muscle and tendon at ankle and foot level, unspecified foot, initial encounter; M72.2 Plantar fascial fibromatosis; X58.XXXA Exposure to other specified factors, initial encounter
CPT/HCPCS: 73723; A9579

== ENCOUNTER → 2025-07-06 17:11 | Outpatient (CLI) | payer OTHER, SELFPAY ==
[2022-12-23 16:00] VITALS: BMI 39.9
== END ==
PROVIDERS: PCP Family Medicine; Visit Provider Family Medicine
DX: N30.00 Acute cystitis without hematuria (principal)
CPT/HCPCS: 87077; 87086; 87186